=== PATIENT | female | born 1945 | race Caucasian/White ===

== ENCOUNTER 2024-12-23 00:38 | Inpatient (IN) | payer OTHER, SELFPAY ==
[2024-12-23] VITALS (9 sets, daily range): BP systolic 113–189; BP diastolic 43–87; PULSE 51–74; RESP 15–20; TEMP 36–36.9; O2SAT 94–99; BMI 32.0; BMI 31.9
--- NOTE | ~2024-12-23 | XR_ITS ---
CLINICAL HISTORY: chest pain 1 view chest x-ray Comparison: None provided Findings: The lungs are clear. Heart size is normal. No acute fracture. IMPRESSION: 1. No acute findings. This document has been electronically signed by: Kuldeep Stephens MD on 12/23/2024 02:15:35
--- NOTE | ~2024-12-23 | CT_ITS ---
CLINICAL HISTORY: Left lower quadrant tenderness?diverticulits CT abdomen and pelvis without contrast Comparison: None provided Findings: The lung bases are clear. Mildly distended gallbladder. Mild peripancreatic haziness may be motion artifact versus edema. Liver, gallbladder, and adrenal glands are within. No hydronephrosis or urolithiasis. Colonic diverticulosis without acute inflammation. No bowel obstruction, pneumatosis or pneumoperitoneum. Normal appendix. Aortic atherosclerosis. No aneurysm. Mild diffuse urinary bladder wall thickening. Small rectocele. Degenerative changes of the spine. IMPRESSION: Colonic diverticulosis without acute inflammation. Mild peripancreatic haziness may be motion artifact versus pancreatitis. Correlate with lipase. This document has been electronically signed by: Luis Manuel Sigala MD on 12/23/2024 03:49:31
--- NOTE | ~2024-12-23 | MR_ITS ---
CLINICAL HISTORY: pancreatitis MRI of the abdomen without IV contrast. MRCP sequences were performed. COMPARISON: CT abdomen and pelvis dated 12/23/24 at 02:29 EDT FINDINGS: Visualized lung bases are clear. No focal hepatic lesion. Gallbladder is nearly completely filled with cholelithiasis. Cholelithiasis present within the gallbladder neck. No pericholecystic inflammatory changes. Common bile duct in the pancreatic head measures 7 mm, within normal limits. No choledocholithiasis identified. Normal spleen. Normal adrenal glands. Symmetric renal size. No hydronephrosis. There is mild edema adjacent to the pancreatic head. Pancreatic duct is normal in caliber measuring up to 2 mm. No pancreatic head mass identified. Visualized portions of the bowel in the upper abdomen are unremarkable. No retroperitoneal mesenteric lymphadenopathy. IMPRESSION: 1. Mild edema along the pancreatic head suggestive of mild pancreatitis. No choledocholithiasis, pancreatic head mass or organizing fluid collection. 2. Gallbladder is nearly completely filled with cholelithiasis. No stigmata of cholecystitis. No choledocholithiasis identified. This document has been electronically signed by: Eyal Parks MD on 12/23/2024 12:53:10
--- NOTE | 2024-12-23 00:40 | ECG_ITS ---
Test Reason : abd pain Blood Pressure : */* mmHG Vent. Rate : 53 BPM Atrial Rate : 53 BPM P-R Int : 150 ms QRS Dur : 132 ms QT Int : 480 ms P-R-T Axes : 58 -24 36 degrees QTcB Int : 450 ms Sinus bradycardia Right bundle branch block Abnormal ECG When compared with ECG of 12-Apr-2018 19:07, Right bundle branch block has replaced Incomplete right bundle branch block Referred By: Generic ED Physician Electronically Signed By: Merritt Sigala
[2024-12-23 01:15] LABS: MANUAL DIFF FLAG NO
[2024-12-23 01:22] LABS: Basophils Percent Auto 0.1 % (0-2); Hematocrit 40.5 % (37.0-47.0); Hemoglobin 12.5 g/dl (12.0-16.0); Imm Gran Pct Auto 0.7 % (0.0-0.4); Lymphocytes Percent Auto 15.2 % (20-40); Mean Corpuscular HGB Conc 30.9 g/dl (31.0-35.0); Mean Corpuscular Hemoglobin 25.8 pg (27.0-33.0); Mean Corpuscular Volume 83.5 fL (80.0-98.0); Mean Platelet Volume 10.7 fL (9.4-12.3); Monocytes Absolute Auto 1.3 X10*3/uL (0.1-1.2); Neutrophils Absolute Auto 9.9 x10*3/uL (2.0-8.3); Platelet Count 292 X10*3/uL (160-400); Red Blood Count 4.85 X10*6/uL (4.20-5.50); Red Cell Distribution Width 17.4 % (11.0-16.0); White Blood Count 13.3 X10*3/uL (4.8-10.8)
[2024-12-23 01:38] LABS: Albumin Level 3.1 g/dL (3.5-5.0); Anion Gap 11 (12-20); Bilirubin Total 0.6 mg/dL (0.0-1.0); Calcium 8.6 mg/dL (8.4-10.2); Carbon Dioxide 31 mmol/L (22-29); Chloride 104 mmol/L (96-108); Creatinine Clr Calc Pharmacy 39.7; Estimated Glomerular Filt Rate 42; Glucose Random 172 mg/dL (60-115); Sodium 141 mmol/L (135-145); Total Protein 6.6 g/dL (6.5-8.0)
--- NOTE | 2024-12-23 01:39 | ED_ITS ---
HPI - Abdominal Pain General Chief Complaint: Abdominal Pain Stated Complaint: CHEST PAIN Time Seen by Provider: 12/23/24 01:09 Source: patient, EMS and RN notes reviewed Mode of arrival: EMS Limitations: altered mental status History of Present Illness ED Provider: HPI narrative: Patient's history of dementia , COPD, heart failure, asthma, diabetes comes from intermediate for diffuse abdominal pain for the limited history started 2 hours prior to arrival no vomiting no fever patient has says she feels sick to her stomach Related Data Allergies Allergy/AdvReac Type Severity Reaction Status Date / Time levofloxacin (From LEVAQUIN) Allergy Unknown UNKNOWN Verified 12/23/24 00:54 montelukast (From SINGULAIR) Allergy Unknown UNKNOWN Verified 12/23/24 00:54 penicillin G Allergy Unknown Unknown Verified 12/23/24 00:54 Penicillins (PCN) Allergy Unknown UNKNOWN Verified 12/23/24 00:54 valsartan (From DIOVAN) Allergy Unknown UNKNOWN Verified 12/23/24 00:54 Review of Systems Review of Systems Yes Unobtainable due to mental status PMFSH Social History Social History Patient Tobacco Use Status: Tobacco use Unknown Smoked in Last 30 Days: No Use of substances other than those prescribed or required for medical reasons: No Advance Directives: No Advance Directives Information Provided: No Do you have a plan to hurt others: No Plan Nutrition Risks: No Nutritional Risk Physical Exam ED Vital Signs: Vital Signs - 24 hr 12/23/24 00:53 Temperature 98.4 F Pulse Rate 52 Respiratory Rate 17 Blood Pressure 165/75 H Pulse Oximetry 94 Oxygen Delivery Method Room Air BMI result Body Mass Index 32.0 Appearance: Alert. Oriented X2. No acute distress. Eyes: No pallor or icterus ENT: Pharynx normal. Oral Mucosa moist Neck: Normal inspection. Neck supple. CVS: Normal heart rate and rhythm. Pulses normal. Respiratory: No respiratory distress. Equal air entry bilateral, no wheezing/rales/rhonchi Abdomen: Soft and deep tenderness left lower quadrant and mid abdomen area no rebound tenderness or guarding Bowel sounds are present, no mass palpable, no CVA tenderness Skin: Skin warm and dry. Normal skin color. Normal skin turgor. Extremities: No lower extremity edema. No calf tenderness Neuro: Dementia alert oriented x2 No motor deficit. Medical Decision Making Medical Decision Making [facility] Narrative: Patient has diffuse abdominal pain workup showed patient has a acute pancreatitis with lipase elevated more than 3000 CT scan showed inflammation around the pancreas etiology not clear has normal triglyceride level medication not causing the pancreatitis patient's nonalcoholic no gallstones seen Differential Diagnosis Differential Diagnoses: The differential diagnosis associated with the presentation includes Diverticulitis/pancreatitis/gastritis/gastroenteritis Admission/Observation Consideration of admission/observation: Escalation of care including admission/observation considered Consult Healthcare Provider Management of the patient was discussed with: Hospitalist Lab Data [facility] Lab Attestation statement: I reviewed the patient's lab results. 12/23/24 01:09 12/23/24 01:09 Labs: Lab Results 12/23/24 Range/Units 01:09 WBC 13.3 H (4.8-10.8) X10*3/uL RBC 4.85 (4.20-5.50) X10*6/uL Hgb 12.5 (12.0-16.0) g/dl Hct 40.5 (37.0-47.0) % MCV 83.5 (80.0-98.0) fL MCH 25.8 L (27.0-33.0) pg MCHC 30.9 L (31.0-35.0) g/dl RDW 17.4 H (11.0-16.0) % Plt Count 292 (160-400) X10*3/uL MPV 10.7 (9.4-12.3) fL Immature Gran % (Auto) 0.7 H (0.0-0.4) % Neut % (Auto) 74.0 H (45-73) % Lymph % (Auto) 15.2 L (20-40) % [place] % (Auto) 10.0 (2-11) % Eos % (Auto) 0.0 (0-4) % Baso % (Auto) 0.1 (0-2) % Lymph # (Auto) 2.0 (1.2-4.9) X10*3/uL [place] # (Auto) 1.3 H (0.1-1.2) X10*3/uL Eos # (Auto) 0.0 (0.0-0.4) X10*3/uL Baso # (Auto) 0.0 (0.0-0.2) X10*3/uL Abs Immat Gran (auto) 0.10 H (0.00-0.03) X10*3/uL Absolute Neuts (auto) 9.9 H (2.0-8.3) x10*3/uL Absolute Nucleated RBC 0.000 (0.0-0.012) X10*3/uL Nucleated RBC % (auto) 0.0 (0.0-0.2) /100WBC Sodium 141 (135-145) mmol/L Potassium 5.0 (3.3-5.1) mmol/L Chloride 104 (96-108) mmol/L Carbon Dioxide 31 H (22-29) mmol/L Anion Gap 11 L (12-20) BUN 36 H (9-16) mg/dL Creatinine 1.23 (0.5-1.4) mg/dL Estim Creat Clear Calc 39.7 Estimated GFR 42 Random Glucose 172 H (60-115) mg/dL Calcium 8.6 (8.4-10.2) mg/dL Magnesium 2.5 (1.6-2.6) mg/dL Total Bilirubin 0.6 (0.0-1.0) mg/dL AST 169 H (5-31) U/L ALT 90 H (0-31) U/L Alkaline Phosphatase 156 H (39-117) U/L Troponin I High Sens 3.7 (<3.5-17.0) ng/L B-Natriuretic Peptide 482 H (<100) pg/mL Total Protein 6.6 (6.5-8.0) g/dL Albumin 3.1 L (3.5-5.0) g/dL Triglycerides 153 H (<150) mg/dL Cholesterol 157 (<200) mg/dL LDL Cholesterol, Calc 86 (<100) mg/dL HDL Cholesterol 41 (>40) mg/dL Lipase > 3000 H (8-78) U/L Influenza Type A (PCR) NEGATIVE (Negative) Influenza Type B (PCR) NEGATIVE (Negative) RSV RNA Qual (PCR) NEGATIVE (Negative) SARS-CoV-2 RNA (RT-PCR) NEGATIVE (Negative) Radiology Impression Discussion of test interpretation with radiology: I have reviewed the radiologist's reading. Radiologist Impression: IMPRESSION: Colonic diverticulosis without acute inflammation. Mild peripancreatic haziness may be motion artifact versus pancreatitis. Correlate with lipase. This document has been electronically signed by: Luis Manuel Sigala MD on 12/23/2024 03:49:31 Medications Administered Generic Name Dose Route Start Last Admin Trade Name Freq PRN Reason Stop Dose Admin Hydromorphone HCl 0.5 mg 12/23/24 04:20 12/23/24 04:53 Hydromorphone Hcl 0.5 Mg/0.5 Ml Syringe IVPUSH 0.5 mg Q4H PRN Administration Pain, Severe (Pain Scale 7-10) Protocol Dextrose/Sodium Chloride 1,000 mls @ 75 mls/hr 12/23/24 04:30 12/23/24 04:53 D51/2ns IVCONT 75 mls/hr .[id number] FLASH Administration Discontinued Medications Generic Name Dose Route Start Last Admin Trade Name Freq PRN Reason Stop Dose Admin Enoxaparin Sodium 40 mg 12/23/24 04:30 12/23/24 04:53 Enoxaparin Sodium 40 Mg/0.4 Ml Syringe SUBCUT 40 mg DAILY FLASH Administration Discharge Plan Discharge Clinical Impression: Acute pancreatitis Qualifiers: Pancreatitis type: unspecified pancreatitis type Acute pancreatitis complication: unspecified Qualified Code(s): K85.90 - Acute pancreatitis without necrosis or infection, unspecified Patient Disposition: Admitted As Inpatient
[2024-12-23 01:41] LABS: Alkaline Phosphatase 156 U/L (39-117); Lipase > 3000 U/L (8-78)
[2024-12-23 01:42] LABS: B Type Natriuretic Peptide 482 pg/mL (<100)
[2024-12-23 01:59] LABS: Influenza A PCR NEGATIVE (Negative); Influenza B PCR NEGATIVE (Negative); Resp Syncy Virus RNA Qual PCR NEGATIVE (Negative); SARS COV2 PCR INHOUSE NEGATIVE (Negative)
[2024-12-23 02:01] LABS: Alanine Aminotransferase 90 U/L (0-31); Aspartate Amino Transferase 169 U/L (5-31); Blood Urea Nitrogen 36 mg/dL (9-16); Magnesium 2.5 mg/dL (1.6-2.6); Troponin-I High Sensitivity 3.7 ng/L (<3.5-17.0)
--- NOTE | 2024-12-23 04:23 | P.HPHOSP_ITS ---
History of Present Illness Date of Service: 12/23/24 Chief Complaint: abd pain 79-year-old female with a past medical history of HTN, HLD,DM, CHF, AFib, COPD, dementia, half-way resident presented to the hospital with a chief complaint of abdominal pain. Reportedly patient has been having abdominal pain since yesterday surgeon nausea. Denies any diarrhea. Reports her pain is mostly in the epigastrium. Nonradiating. Denies any fevers and chills. Denies any chest pain or palpitations. Denies any alcohol use or illicit drug use. Spoke to the patient's daughter over the phone. Review of all other systems is negative except mentioned above ER course: Per ER team, patient noted to have diffuse abdominal tenderness but more so in the epigastrium; lipase elevated to greater than 3000; slight dilution liver enzymes; CT abdomen pelvis showed findings concerning for pancreatitis. Given pain medication. REPLACED BY [facility] Social History Advance Directives: No Advance Directives Information Provided: No Do you have a plan to hurt others: No Plan Meds Allergies Allergy/AdvReac Type Severity Reaction Status Date / Time levofloxacin (From LEVAQUIN) Allergy Unknown UNKNOWN Verified 12/23/24 00:54 montelukast (From SINGULAIR) Allergy Unknown UNKNOWN Verified 12/23/24 00:54 penicillin G Allergy Unknown Unknown Verified 12/23/24 00:54 Penicillins (PCN) Allergy Unknown UNKNOWN Verified 12/23/24 00:54 valsartan (From DIOVAN) Allergy Unknown UNKNOWN Verified 12/23/24 00:54 Physical Exam 2 Vital Signs and Narrative: Vital Signs: BMI result Body Mass Index 32.0 Gen: Appears be in no acute distress HEENT: NCAT, Moist mucosa. Pulmonary: Vesicular breath sounds, fair air entry CVS: Normal S1-S2 Abdomen: BS+, tender in the epigastrium Extremities: Warm well perfused Neuro: Alert and awake. Results Labs 12/23/24 01:09 12/23/24 01:09 Labs: Laboratory Results - last 24 hr 12/23/24 01:09 MCV 83.5 MCH 25.8 L MCHC 30.9 L RDW 17.4 H Plt Count 292 MPV 10.7 Immature Gran % (Auto) 0.7 H Neut % (Auto) 74.0 H Lymph % (Auto) 15.2 L [place] % (Auto) 10.0 Eos % (Auto) 0.0 Baso % (Auto) 0.1 Lymph # (Auto) 2.0 [place] # (Auto) 1.3 H Eos # (Auto) 0.0 Baso # (Auto) 0.0 Abs Immat Gran (auto) 0.10 H Absolute Neuts (auto) 9.9 H Absolute Nucleated RBC 0.000 Nucleated RBC % (auto) 0.0 Anion Gap 11 L Estim Creat Clear Calc 39.7 Estimated GFR 42 Random Glucose 172 H Calcium 8.6 Magnesium 2.5 Total Bilirubin 0.6 AST 169 H ALT 90 H Alkaline Phosphatase 156 H Troponin I High Sens 3.7 B-Natriuretic Peptide 482 H Total Protein 6.6 Albumin 3.1 L Lipase > 3000 H Influenza Type A (PCR) NEGATIVE Influenza Type B (PCR) NEGATIVE RSV RNA Qual (PCR) NEGATIVE SARS-CoV-2 RNA (RT-PCR) NEGATIVE Assessment and Plan (1) Acute pancreatitis: Qualifiers: Pancreatitis type: unspecified pancreatitis type Acute pancreatitis complication: unspecified Qualified Code(s): K85.90 - Acute pancreatitis without necrosis or infection, unspecified Status: Acute Plan 79-year-old female with a past medical history of HTN, HLD,DM, CHF, AFib, COPD, dementia, half-way resident presented to the hospital with a chief complaint of abdominal pain. Noted to have acute pancreatitis. Acute pancreatitis: Unclear etiology Noted to have mild transaminitis Will obtain MRCP Gastroenterology consult next pain control Gentle IV fluids Acute hepatitis panel Diabetes: Insulin sliding scale Hypertension: Continue metoprolol AFib: Continue Eliquis COPD: Stable Dementia: Delirium precautions. Mental status at baseline currently DVT prophylaxis: Patient on Eliquis Code status: DNR/DNI, confirmed with patient's daughter Quality Stroke Does the patient have a stroke diagnosis?: No VTE Prior VTE?: No VTE Risk Level:: Medical - moderate - high VTE Device Contraindication: N/A - Device Ordered VTE Drug Contraindication: N/A - Med Ordered
--- NOTE | 2024-12-23 04:30 | MHC.EDTECH ---
Assisted patient with purewick
[2024-12-23 04:35] LABS: Cholesterol 157 mg/dL (<200); HDL Cholesterol 41 mg/dL (>40); LDL Cholesterol Calculated 86 mg/dL (<100); Triglycerides 153 mg/dL (<150)
[2024-12-23] MEDS: HYDROmorphone HCl 0.5 MG/0.5 ML SYRINGE IVPUSH ×2 (04:53→20:31)
[2024-12-23] MEDS: Enoxaparin Sodium 40 MG/0.4 ML SYRINGE SUBCUT (04:53)
[2024-12-23] MEDS: Dextrose 5 % and 0.45 % NaCl 1,000 ML 75 ML IVCONT ×2 (04:53→18:11)
[2024-12-23 06:15] LABS: Appearance Urine Clear; Color Urine Yellow; Glucose Urine UA >=1000 mg/dL (Negative); Leukocyte Esterase Urine Small (1+) (Negative); Nitrite Urine Negative (Negative); PH 6.5 (5.0-9.0); Specific Gravity - Urine >= 1.030 (1.005-1.025); UMIC TRIGGER UACC YES; Urine Blood Negative (Negative); Urine Ketones Negative (Negative); Urine Protein Negative (Neg-Trace)
[2024-12-23 06:36] LABS: MANUAL DIFF FLAG NO
[2024-12-23 06:44] LABS: Bacteria Urine 1+ (None Seen); Hyaline Casts Urine 0-2 /LPF (0-2); RBC Urine 0-2 /HPF (0-2); UACC Culture Trigger YES; WBC Urine >50 /HPF (0-5)
[2024-12-23 06:44] LABS: Basophils Percent Auto 0.1 % (0-2); Hematocrit 38.6 % (37.0-47.0); Hemoglobin 11.8 g/dl (12.0-16.0); Imm Gran Abs Auto 0.09 X10*3/uL (0.00-0.03); Imm Gran Pct Auto 0.9 % (0.0-0.4); Lymphocytes Absolute Auto 1.4 X10*3/uL (1.2-4.9); Lymphocytes Percent Auto 13.7 % (20-40); Mean Corpuscular HGB Conc 30.6 g/dl (31.0-35.0); Mean Corpuscular Hemoglobin 25.7 pg (27.0-33.0); Mean Corpuscular Volume 84.1 fL (80.0-98.0); Mean Platelet Volume 11.5 fL (9.4-12.3); Monocytes Absolute Auto 0.9 X10*3/uL (0.1-1.2); Monocytes Percent Auto 8.3 % (2-11); Platelet Count 246 X10*3/uL (160-400); Red Blood Count 4.59 X10*6/uL (4.20-5.50); Red Cell Distribution Width 17.5 % (11.0-16.0); White Blood Count 10.4 X10*3/uL (4.8-10.8)
[2024-12-23 06:53] LABS: Alanine Aminotransferase 392 U/L (0-31); Albumin Level 2.6 g/dL (3.5-5.0); Alkaline Phosphatase 180 U/L (39-117); Anion Gap 15 (12-20); Aspartate Amino Transferase 903 U/L (5-31); Blood Urea Nitrogen 36 mg/dL (9-16); Calcium 8.3 mg/dL (8.4-10.2); Carbon Dioxide 25 mmol/L (22-29); Chloride 106 mmol/L (96-108); Creatinine Clr Calc Pharmacy 45.6; Estimated Glomerular Filt Rate 49; Glucose Random 327 mg/dL (60-115); Potassium 4.5 mmol/L (3.3-5.1); Sodium 141 mmol/L (135-145); Total Protein 5.6 g/dL (6.5-8.0)
[2024-12-23 07:56] LABS: Glucose, Whole Blood 310 mg/dL (60-115)
[2024-12-23] MEDS: Insulin Lispro 100 UNIT/ML 3 ML VIAL SUBCUT ×3 (07:57→20:32)
[2024-12-23] MEDS: Apixaban 5 MG TABLET PO (08:01)
--- NOTE | 2024-12-23 08:04 | PC.NURSE ---
Morning Metoprolol held d/t pt HR 50-55. MD aware. Vitals updated in worklist. Repositioned in bed for comfort, purewick dry and intact, call spear within reach, all needs met at this time.
[2024-12-23 08:18] LABS: Lipase 2922 U/L (8-78)
--- NOTE | 2024-12-23 08:18 | PHA.MEDREC ---
Addendum entered by Kristin Pal [facility] 12/23/24 09:11: reviewed Original Note: Pharmacy Consult ? Medication Reconciliation Pharmacy has completed the medication reconciliation. Used list from [facility]. Nurse at [facility] confirmed administration times for oxycodone.
--- NOTE | 2024-12-23 08:29 | PC.NURSE ---
Attempted to do MRI screening form with pt daughter d/t pt hx of dementia. No response @ [phone]- message left for daughter, MRI notified.
[2024-12-23 08:43] LABS: HBS Num1 0.03 mIU/mL (0-7.99); HBc Num1 0.06 S/CO (0.00-0.79); HBsAGNum1 0.47 S/CO (0.00-0.99); Hepatitis A Antibody IgM 0.27 Index (0-0.79); Hepatitis B Core Antibody Nonreactive (Nonreactive); Hepatitis B Surface Antigen Negative (Negative); ~HepC Num1 0.07 S/CO (0.00-0.79); ~Hepatitis A Antibody IgM Nonreactive (Nonreactive); ~Hepatitis B Surface Antibody NONREACTIVE (Nonreactive); ~Hepatitis C Antibody Nonreactive (Nonreactive)
--- NOTE | 2024-12-23 11:45 | CONS_ITS ---
DATE OF SERVICE: 12/23/2024 REFERRING PHYSICIAN: Ijeoma Moyer REASON FOR CONSULTATION: Pancreatitis and elevated liver function tests. HISTORY OF PRESENT ILLNESS: The patient is a pleasant 79-year-old Vincentian-speaking woman who is a poor historian, possibly due to dementia. She was brought to the emergency room because of abdominal pain and evaluated. Evaluation included laboratory studies showing a lipase level greater than 3000, which dropped to 2922 today. Liver function tests were slightly elevated and have become more elevated over 24 hours since admission. Evaluation with imaging showed mild peripancreatic haziness thought to be motion artifact versus edema on CT scanning. No biliary pathology was identified. MRI imaging is scheduled. The patient denies any abdominal pain at this time and provides no useful history. PAST MEDICAL HISTORY: 1. Hypertension. 2. Hyperlipidemia. 3. Diabetes mellitus. 4. CHF. 5. Atrial fibrillation. 6. COPD. 7. Dementia. CURRENT MEDICATIONS: Her current medication list is reviewed in the chart. ALLERGIES: MULTIPLE MEDICATION ALLERGIES ARE REVIEWED. FAMILY HISTORY: This is reviewed in the electronic medical record and is noncontributory. SOCIAL HISTORY: There is no current tobacco, alcohol, or substance abuse reported. [facility] REVIEW OF SYSTEMS: This is not obtainable. PHYSICAL EXAMINATION: GENERAL: Shows a pleasant elderly female who speaks Vincentian. History is obtained with the use of waist presser, but is limited. SKIN: Anicteric. HEENT: Shows no scleral icterus. NECK: Without lymphadenopathy or thyromegaly. LUNGS: Clear. HEART: Shows a regular rate and rhythm. S1, S2. No murmur. ABDOMEN: Soft without focal masses or tenderness. Bowel sounds are present. No organomegaly is noted. EXTREMITIES: Without edema. LABORATORY DATA AND IMAGING STUDIES: Reviewed. This appears consistent with gallstone pancreatitis given her presentation and liver function tests, allergies as well as lipase elevation. I agree with obtaining MRI imaging. If it does show a common duct stone, then she will need an eventual MRI. Once her pancreatitis has improved, I would recommend holding anticoagulation with Eliquis at this time for such a possibility. Thank you for asking me to see her. I will follow her in the hospital with you. MD ROSSY Rojas/LOUISA / [phone]
--- NOTE | 2024-12-23 12:52 | PM.EVENT ---
Event Note Date of Service: 12/23/24 Event Note: Seen and examined. Admitted for acute pancreatitis, labs, meds, imaging reviewed. Med rec completed, awaiting MRCP Time Spent With Patient Time: Total time managing care of this patient today ____ minutes.
[2024-12-23 13:08] LABS: Glucose, Whole Blood 184 mg/dL (60-115)
--- NOTE | 2024-12-23 15:23 | MHC.EDTECH ---
Not able to take patient blood pressure due to patient moving from crying
[2024-12-23 17:23] LABS: Glucose, Whole Blood 116 mg/dL (60-115)
[2024-12-23] MEDS: 0.9 % Sodium Chloride Flush 3 ML SYRINGE IVFLUSH ×2 (18:12→20:34)
[2024-12-23 20:00] LABS: Glucose, Whole Blood 161 mg/dL (60-115)
[2024-12-23] MEDS: Atorvastatin Calcium 20 MG TABLET PO (20:32)
[2024-12-23] MEDS: Montelukast Sodium 10 MG TABLET PO (20:32)
[2024-12-24] VITALS (8 sets, daily range): BP systolic 160–179; BP diastolic 79–88; PULSE 51–64; RESP 17–18; TEMP 36–36.8; O2SAT 95–98
[2024-12-24] MEDS: Omeprazole 20 MG CAPSULE.DR PO (06:00)
[2024-12-24 07:26] LABS: Glucose, Whole Blood 170 mg/dL (60-115)
[2024-12-24] MEDS: BUDESONIDE 0.25 MG/2 ML INHALE ×2 (08:26→18:55)
[2024-12-24] MEDS: Furosemide 20 MG TABLET PO (09:18)
[2024-12-24] MEDS: Loratadine 10 MG TABLET PO (09:18)
[2024-12-24] MEDS: 0.9 % Sodium Chloride Flush 3 ML SYRINGE IVFLUSH (09:21)
[2024-12-24] MEDS: Insulin Lispro 100 UNIT/ML 3 ML VIAL SUBCUT ×3 (09:21→22:12)
[2024-12-24] MEDS: Dextrose 5 % and 0.45 % NaCl 1,000 ML 75 ML IVCONT ×2 (09:22→23:44)
[2024-12-24] MEDS: Clotrimazole 1 % Cream 15 GM TUBE 1 APPL TOPICAL (09:30)
[2024-12-24] MEDS: polyethylene glycoL 3350 17 GM POWD.PACK PO (09:31)
[2024-12-24] MEDS: Metoprolol Succinate ER 50 MG TAB.ER.24H PO (09:39)
[2024-12-24 09:55] LABS: Hematocrit 43.2 % (37.0-47.0); Hemoglobin 13.2 g/dl (12.0-16.0); Mean Corpuscular HGB Conc 30.6 g/dl (31.0-35.0); Mean Corpuscular Hemoglobin 25.9 pg (27.0-33.0); Mean Corpuscular Volume 84.7 fL (80.0-98.0); Mean Platelet Volume 11.1 fL (9.4-12.3); Platelet Count 274 X10*3/uL (160-400); Red Cell Distribution Width 18.3 % (11.0-16.0); White Blood Count 8.3 X10*3/uL (4.8-10.8)
--- NOTE | 2024-12-24 10:07 | MHC.CM.PN ---
IMM 12/24/24, discussed with HCP / Dtr on phone, copy left in room. Pt. dx. of Dementia, HCP signs all forms. Pt. resides at [facility], DCP [facility] for [facility] return [facility]. CM to follow for DC needs.
[2024-12-24 10:15] LABS: Alanine Aminotransferase 763 U/L (0-31); Alkaline Phosphatase 270 U/L (39-117); Aspartate Amino Transferase 677 U/L (5-31); Bilirubin Direct 0.3 mg/dL (0.0-0.5); Bilirubin Total 0.7 mg/dL (0.0-1.0); Lipase 98 U/L (8-78); Total Protein 6.4 g/dL (6.5-8.0)
--- NOTE | 2024-12-24 11:00 | P.PNGI_ITS ---
Subjective Subjective Date of Service: 12/24/24 Interval History: no c/o pain appears comfortable Critical Care Time (minutes): 0 Physical Exam 2 Vital Signs: Vital Signs: Last Vital Signs Temp 97.6 F 12/24/24 07:13 Pulse 60 12/24/24 09:39 Resp 18 12/24/24 08:27 BP 165/88 H 12/24/24 07:13 Pulse Ox 96 12/24/24 07:13 O2 Del Method Room Air 12/24/24 07:13 BMI result Body Mass Index 31.9 GI: Other: abdomen is soft and nontender Objective Data Labs 12/24/24 09:41 12/23/24 05:58 Labs: mri reviewed, no cbd stones multiple gallstones. Microbiology Microbiology Results: Microbiology 12/23/24 Unknown Urine clean catch - Clean Catch Midstream Urine Culture - Preliminary Culture in progress. Procedures Date of Service Date of Service: 12/24/24 Progress Note: A&P Assessment and plan (1) Acute pancreatitis: Status: Acute Assessment and Plan: pancreatitis improving no cbd stones seen on mri lfts and lipase improving surgical consult for eventual cholecystectomy Time Spent With Patient Time: Total time managing care of this patient today ____ minutes. Quality Stroke Does the patient have a stroke diagnosis?: No VTE Prior VTE?: No VTE Risk Level:: Medical - moderate - high VTE Device Contraindication: N/A - Device Ordered VTE Drug Contraindication: N/A - Med Ordered
[2024-12-24 11:29] LABS: Glucose, Whole Blood 167 mg/dL (60-115)
--- NOTE | 2024-12-24 11:34 | P.CONGS_ITS ---
History of Present Illness Consult details Consult date: 12/24/24 Narrative: [age] year female with multiple medical problems including hypertension, dementia, diabetes, CHF, atrial fibrillation, who was brought to the ER from the shelter because of apparent abdominal pain. The patient does not really communicate well. The admitting notes he had that she apparently had complained of pain in the epigastric area She currently says she had this does not have significant pain. She otherwise does not offer any other details because of her dementia. No nausea or vomiting was reported by the nursing staff. Review of Systems 2 Review of Systems: Yes Unobtainable due to mental status Constitutional: Constitutional: Denies fever(s) PMFSH Past Medical History Medical History (Updated 12/24/24 @ 11:37 by Zeus Santana MD) Abdominal pain Social History Social History Household Members: Caregiver Housing: Assisted Living Facility Do you presently have visiting nurse or other home services: Yes (SNF per report.) Patient Tobacco Use Status: Never used Tobacco Smoked in Last 30 Days: No Patient Interested in Nicotine Replacement: No Patient Given Instructions on How to Stop Smoking: No Second Hand Smoke Exposure: No Use of substances other than those prescribed or required for medical reasons: No Currently Displaying Signs/Symptoms of Drug Intoxication Withdrawal: No Have you been hit, kicked, punched, or otherwise hurt by someone within the past year? If so, by whom?: No Do you feel safe in your current relationship?: Yes Is there a partner from a previous relationship who is making you feel unsafe now?: No Are you made to feel afraid or neglected: No Advance Directives: No Advance Directives Information Provided: No Advance Directives on File: No Do you have a plan to hurt others: No Plan Recently lost weight without trying: No Eating poorly because of decreased appetite: No Nutrition Risks: No Nutritional Risk Patient : No : No Poor oral hygiene: No service: No Meds Allergies Allergy/AdvReac Type Severity Reaction Status Date / Time levofloxacin (From LEVAQUIN) Allergy Unknown UNKNOWN Verified 12/23/24 00:54 montelukast (From SINGULAIR) Allergy Unknown UNKNOWN Verified 12/23/24 00:54 penicillin G Allergy Unknown Unknown Verified 12/23/24 00:54 Penicillins (PCN) Allergy Unknown UNKNOWN Verified 12/23/24 00:54 valsartan (From Keyade) Allergy Unknown UNKNOWN Verified 12/23/24 00:54 Active Medications: Current Medications Acetaminophen (Acetaminophen 325 Mg Tablet) 650 mg PO Q6H PRN PRN Reason: Pain, Mild 1-3,fever,headache Albuterol Sulfate (Albuterol Sulfate (0.083%) 2.5 Mg/3 Ml Vial.Neb) 2.5 mg INHALE RQ6H PRN PRN Reason: wheezing/SOB Apixaban (Apixaban 5 Mg Tablet) 5 mg PO BID FLASH On Hold: 12/23/24 11:26 Last Admin: 12/23/24 08:01 Dose: 5 mg Atorvastatin Calcium (Atorvastatin Calcium 20 Mg Tablet) 20 mg PO BEDTIME FLASH Last Admin: 12/23/24 20:32 Dose: 20 mg Bisacodyl (Bisacodyl 10 Mg Supp.Rect) 10 mg [place] DAILY PRN PRN Reason: Constipation Budesonide (Budesonide 0.25 Mg/2 Ml Ampul.Neb) 0.25 mg INHALE RBID [facility] Last Admin: 12/24/24 08:26 Dose: 0.25 mg Calcium Carbonate (Calcium Carbonate 750 Mg Tab.Chew) 750 mg PO Q4H PRN PRN Reason: Heartburn Clotrimazole (Clotrimazole 1 % Cream 15 Gm Tube) 1 appl TOPICAL DAILY FLASH; Protocol Last Admin: 12/24/24 09:30 Dose: 1 appl Dextrose (Dextrose 50 % 25 Gm/50 Ml Syringe) 25 gm IVPUSH Q15M PRN; Protocol PRN Reason: per Hypoglycemia Standing Ord. Furosemide (Furosemide 20 Mg Tablet) 20 mg PO DAILY FLASH; Protocol Last Admin: 12/24/24 09:18 Dose: 20 mg Glucose (Glucose Gel 15 Gm Gel..Gram.) 15 gm PO Q15M PRN; Protocol PRN Reason: per Hypoglycemia Standing Ord. Hydromorphone HCl (Hydromorphone Hcl 0.5 Mg/0.5 Ml Syringe) 0.5 mg IVPUSH Q4H PRN; Protocol PRN Reason: Pain, Severe (Pain Scale 7-10) Last Admin: 12/23/24 20:31 Dose: 0.5 mg Dextrose/Sodium Chloride (D51/2ns) 1,000 mls @ 75 mls/hr IVCONT .[id number] FLASH Last Admin: 12/24/24 09:22 Dose: 75 mls/hr Insulin Human Lispro (Insulin Lispro 100 Unit/Ml 3 Ml Vial) 0 unit SUBCUT QIDACHS [facility]; Protocol Last Admin: 12/24/24 09:21 Dose: 2 unit Loratadine (Loratadine 10 Mg Tablet) 10 mg PO DAILY [facility] Last Admin: 12/24/24 09:18 Dose: 10 mg Magnesium Hydroxide (Milk Of Magnesia 30 Ml Oral.Susp) 30 ml PO DAILY PRN PRN Reason: Constipation Magnesium Hydroxide (Milk Of Magnesia 30 Ml Oral.Susp) 30 ml PO DAILY PRN PRN Reason: Constipation Melatonin (Melatonin 3 Mg Tablet) 6 mg PO BEDTIME PRN PRN Reason: Insomnia Metoprolol Succinate (Metoprolol Succinate Er 50 Mg Tab.Er.24h) 50 mg PO DAILY [facility]; Protocol Last Admin: 12/24/24 09:39 Dose: 50 mg Montelukast Sodium (Montelukast Sodium 10 Mg Tablet) 10 mg PO BEDTIME [facility] Last Admin: 12/23/24 20:32 Dose: 10 mg Omeprazole (Omeprazole 20 Mg Capsule.Dr) 20 mg PO DAILY@0630 [facility] Last Admin: 12/24/24 06:00 Dose: 20 mg Polyethylene Glycol (Polyethylene Glycol 3350 17 Gm Powd.Pack) 17 gm PO DAILY [facility] Last Admin: 12/24/24 09:31 Dose: 17 gm Sodium Biphosphate/Sodium Phosphate (Sodium Phosphate,[place]-Dibasic 133 Ml Enema) 118 ml [place] DAILY PRN PRN Reason: Constipation Sodium Chloride (0.9 % Sodium Chloride Flush 3 Ml Syringe) 3 ml IVFLUSH QSHIFT [facility] Last Admin: 12/24/24 09:21 Dose: 3 ml Home Medications ?Medication ?Instructions ?Recorded ?Confirmed ?Last Taken ?Type acetaminophen 325 mg tablet 650 mg PO Q4H PRN Fever Or Pain 12/23/24 12/23/24 12/22/24 History acetaminophen 650 mg rectal 650 mg NM Q4H PRN pain or fever 12/23/24 12/23/24 Unknown History suppository albuterol sulfate 2.5 mg/3 mL 2.5 mg inhalation Q6H NM N 12/23/24 12/23/24 Unknown History (0.083 %) solution for nebulization wheezing/SOB apixaban 5 mg tablet (Eliquis) 5 mg PO BID 12/23/2412/22/24 History atorvastatin 20 mg tablet 20 mg PO BEDTIME 12/23/2412/22/24 History bisacodyl 10 mg rectal suppository 10 mg NM DAILY PRN Constipation 12/23/24 12/23/24 Unknown History budesonide 0.25 mg/2 mL suspension 0.25 mg inhalation BID 12/23/24 12/23/24 12/22/24 History for nebulization clotrimazole 1 % topical cream 1 appl topical DAILY 12/23/24 12/22/24 History empagliflozin 10 mg tablet 10 mg PO DAILY 12/23/2412/22/24 History (Jardiance) furosemide 20 mg tablet 20 mg PO DAILY 12/23/2412/0412/22/24 History glipizide 5 mg tablet 5 mg PO BIDAC 12/23/2412/2312/22/24 History loratadine 10 mg tablet 10 mg PO DAILY 12/23/2412/0412/22/24 History magnesium hydroxide 400 mg/5 mL 30 ml PO DAILY PRN Con stipation 12/23/24 12/23/24 Unknown History oral suspension (Milk of Magnesia) melatonin 3 mg tablet 6 mg PO BEDTIME 12/23/2412/22/24 History metoprolol succinate 100 mg 100 mg PO DAILY 12/23/24 0 12/23/24 12/22/24 History tablet,extended release 24 hr montelukast 10 mg tablet 10 mg PO BEDTIME 12/23/2412/22/24 History omeprazole 20 mg capsule,delayed 20 mg PO DAILY 12/23/24 12/22/24 History release oxycodone 10 mg tablet,crush 10 mg PO BID@0900,2100 12/23/24 12/22/24 History resistant,extended release 12 hr oxycodone 5 mg tablet 5 mg PO DAILY@1200 12/23/24 12/23/24 12/22/24 History polyethylene glycol 3350 17 gram 17 g PO DAILY 5 12/23/24 12/22/24 History oral powder packet (Miralax) sodium phosphates 19 gram-7 118 ml NM DAILY PRN Williamsi holdenon 12/23/24 12/23/24 Unknown History gram/118 mL enema (Fleet Enema) Physical Exam 2 Vital Signs: Vital Signs: Last Vital Signs Temp 97.3 F 12/24/24 11:19 Pulse 61 12/24/24 11:19 Resp 18 12/24/24 11:19 BP 165/88 H 12/24/24 11:19 Pulse Ox 95 12/24/24 11:19 O2 Del Method Room Air 12/24/24 11:19 BMI result Body Mass Index 31.9 Const: Other: Appears to be crying but denies abdominal pain General: no acute distress Resp: Effort & Inspection: normal respiratory effort Cardio: Rate: regular rate GI: Palpation (GI): Soft to palpation, not firm and no guarding Results Labs 12/24/24 09:41 12/23/24 05:58 Labs: Abnormal lab results 12/23/24 12/23/24 12/23/24 Range/Units 13:04 17:20 19:35 MCH (27.0-33.0) pg MCHC (31.0-35.0) g/dl RDW (11.0-16.0) % POC Glucose 184 H 116 H 161 H (60-115) mg/dL AST (5-31) U/L ALT (0-31) U/L Alkaline Phosphatase (39-117) U/L Total Protein (6.5-8.0) g/dL Albumin (3.5-5.0) g/dL Lipase (8-78) U/L 12/24/24 12/24/24 12/24/24 Range/Units 07:22 09:41 11:26 MCH 25.9 L (27.0-33.0) pg MCHC 30.6 L (31.0-35.0) g/dl RDW 18.3 H (11.0-16.0) % POC Glucose 170 H 167 H (60-115) mg/dL AST 677 H (5-31) U/L ALT 763 H (0-31) U/L Alkaline Phosphatase 270 H (39-117) U/L Total Protein 6.4 L (6.5-8.0) g/dL Albumin 3.0 L (3.5-5.0) g/dL Lipase 98 H (8-78) U/L Short CBC 12/24/24 Range/Units 09:41 WBC 8.3 (4.8-10.8) X10*3/uL Hgb 13.2 (12.0-16.0) g/dl Hct 43.2 (37.0-47.0) % Plt Count 274 (160-400) X10*3/uL Liver Function 12/24/24 Range/Units 09:41 Total Bilirubin 0.7 (0.0-1.0) mg/dL Direct Bilirubin 0.3 (0.0-0.5) mg/dL AST 677 H (5-31) U/L ALT 763 H (0-31) U/L Alkaline Phosphatase 270 H (39-117) U/L Albumin 3.0 L (3.5-5.0) g/dL Urine 12/23/24 Range/Units 06:08 Urine Color Yellow Urine Appearance Clear Urine pH 6.5 (5.0-9.0) Ur Specific [place] >= 1.030 H (1.005-1.025) Urine Protein Negative (Neg-Trace) mg/dL Urine Glucose (UA) >=1000 H (Negative) mg/dL All other labs normal. Assessment and Plan (1) Abdominal pain: Status: Acute She was brought to the ER from the shelter because of report of abdominal pain. Her lipase was actually not significantly elevated at 98. There may be some mild haziness of the pancreas on MRCP. She does have gallstones Her abdominal exam is otherwise benign. I would keep her on clear liquids for now and we will continue to do serial exams. She does have gallstones but no signs of cholecystitis. She appears to present with significant perioperative risk for anesthesia so I will discuss goals of care with the family. She has had there was hemodynamically stable. I would recommend continuing with nonoperative treatment for now Procedures Date of Service Date of Service: 12/25/24
--- NOTE | 2024-12-24 14:57 | P.EN_ITS ---
Documented by User: Ellen Mcelroy APRN 12/24/24 14:58 Event Note Date of Service: 12/24/24 Event Note: Consult placed for dementia with behavioral issues. PT seen with [facility] children's librarian. Consult cancelled by Dr. Cartagena when completed. Time Spent With Patient Time: Total time managing care of this patient today ____ minutes. Documented by User: Rubio Mcdaniels MD 12/24/24 20:56 Event Note Date of Service: 12/24/24
[2024-12-24 16:05] LABS: Glucose, Whole Blood 142 mg/dL (60-115)
[2024-12-24] MEDS: Montelukast Sodium 10 MG TABLET PO (21:26)
[2024-12-24] MEDS: Atorvastatin Calcium 20 MG TABLET PO (21:26)
[2024-12-24 22:14] LABS: Glucose, Whole Blood 206 mg/dL (60-115)
[2024-12-25] VITALS (10 sets, daily range): BP systolic 120–182; BP diastolic 56–82; PULSE 51–79; RESP 16–20; TEMP 36.6–37.2; O2SAT 95–99
[2024-12-25] MEDS: Omeprazole 20 MG CAPSULE.DR PO (06:32)
[2024-12-25 07:44] LABS: Glucose, Whole Blood 169 mg/dL (60-115)
--- NOTE | 2024-12-25 07:54 | P.PNGS_ITS ---
Subjective Subjective Date of Service: 12/25/24 <Annamaria Collins PA-C - Last Filed: 12/25/24 07:56> 12/25/24 <Zeus Santana MD - Last Filed: 12/25/24 08:20> Interval history: Denies abd pain. Tolerating clear liquids. <Annamaria Collins PA-C - Last Filed: 12/25/24 07:56> Physical Exam 2 Vital Signs: Vital Signs: Last Vital Signs Temp 98.5 F 12/25/24 07:49 Pulse 55 12/25/24 07:49 Resp 16 12/25/24 07:49 BP 182/80 H 12/25/24 07:49 Pulse Ox 96 12/25/24 07:49 O2 Del Method Room Air 12/25/24 07:49 BMI result Body Mass Index 31.9 <Annamaria Collins PA-C - Last Filed: 12/25/24 07:56> Const: General: comfortable, no acute distress and alert <Annamaria Collins PA-C - Last Filed: 12/25/24 07:56> GI: Other: mild epigastric tenderness <Annamaria Collins PA-C - Last Filed: 12/25/24 07:56> Palpation (GI): Soft to palpation and no guarding <Annamaria Collins PA-C - Last Filed: 12/25/24 07:56> Skin: General skin exam: no rashes or lesions noted and no jaundice < Annamaria Collins PA-C - Last Filed: 12/25/24 07:56> Objective Data Active Medications Acetaminophen (Acetaminophen 325 Mg Tablet) 650 mg PO Q6H PRN PRN Reason: Pain, Mild 1-3,fever,headache Albuterol Sulfate (Albuterol Sulfate (0.083%) 2.5 Mg/3 Ml Vial.Neb) 2.5 mg INHALE RQ6H PRN PRN Reason: wheezing/SOB Apixaban (Apixaban 5 Mg Tablet) 5 mg PO BID FLASH On Hold: 12/23/24 11:26 Last Admin: 12/23/24 08:01 Dose: 5 mg Documented By: KEY Atorvastatin Calcium (Atorvastatin Calcium 20 Mg Tablet) 20 mg PO BEDTIME FLASH Last Admin: 12/24/24 21:26 Dose: 20 mg Documented By: HIRO Bisacodyl (Bisacodyl 10 Mg Supp.Rect) 10 mg [place] DAILY PRN PRN Reason: Constipation Budesonide (Budesonide 0.25 Mg/2 Ml Ampul.Neb) 0.25 mg INHALE RBID [facility] Last Admin: 12/24/24 18:55 Dose: 0.25 mg Documented By: ALESHIA Calcium Carbonate (Calcium Carbonate 750 Mg Tab.Chew) 750 mg PO Q4H PRN PRN Reason: Heartburn Clotrimazole (Clotrimazole 1 % Cream 15 Gm Tube) 1 appl TOPICAL DAILY [facility]; Protocol Last Admin: 12/24/24 09:30 Dose: 1 appl Documented By: CHARAN Dextrose (Dextrose 50 % 25 Gm/50 Ml Syringe) 25 gm IVPUSH Q15M PRN; Protocol PRN Reason: per Hypoglycemia Standing Ord. Furosemide (Furosemide 20 Mg Tablet) 20 mg PO DAILY [facility]; Protocol Last Admin: 12/24/24 09:18 Dose: 20 mg Documented By: CHARAN Glucose (Glucose Gel 15 Gm Gel..Gram.) 15 gm PO Q15M PRN; Protocol PRN Reason: per Hypoglycemia Standing Ord. Hydromorphone HCl (Hydromorphone Hcl 0.5 Mg/0.5 Ml Syringe) 0.5 mg IVPUSH Q4H PRN; Protocol PRN Reason: Pain, Severe (Pain Scale 7-10) Last Admin: 12/23/24 20:31 Dose: 0.5 mg Documented By: SUPRIYA Insulin Human Lispro (Insulin Lispro 100 Unit/Ml 3 Ml Vial) 0 unit SUBCUT QIDACHS [facility]; Protocol Last Admin: 12/24/24 22:12 Dose: 4 unit Documented By: HIRO Loratadine (Loratadine 10 Mg Tablet) 10 mg PO DAILY [facility] Last Admin: 12/24/24 09:18 Dose: 10 mg Documented By: CHARAN Magnesium Hydroxide (Milk Of Magnesia 30 Ml Oral.Susp) 30 ml PO DAILY PRN PRN Reason: Constipation Magnesium Hydroxide (Milk Of Magnesia 30 Ml Oral.Susp) 30 ml PO DAILY PRN PRN Reason: Constipation Melatonin (Melatonin 3 Mg Tablet) 6 mg PO BEDTIME PRN PRN Reason: Insomnia Metoprolol Succinate (Metoprolol Succinate Er 50 Mg Tab.Er.24h) 50 mg PO DAILY [facility]; Protocol Last Admin: 12/24/24 09:39 Dose: 50 mg Documented By: CHARAN Montelukast Sodium (Montelukast Sodium 10 Mg Tablet) 10 mg PO BEDTIME [facility] Last Admin: 12/24/24 21:26 Dose: 10 mg Documented By: HIRO Omeprazole (Omeprazole 20 Mg Capsule.Dr) 20 mg PO DAILY@0630 [facility] Last Admin: 12/25/24 06:32 Dose: 20 mg Documented By: ELIDA-CONNEllie Polyethylene Glycol (Polyethylene Glycol 3350 17 Gm Powd.Pack) 17 gm PO DAILY [facility] Last Admin: 12/24/24 09:31 Dose: 17 gm Documented By: CHARAN Sodium Biphosphate/Sodium Phosphate (Sodium Phosphate,[place]-Dibasic 133 Ml Enema) 118 ml [place] DAILY PRN PRN Reason: Constipation Sodium Chloride (0.9 % Sodium Chloride Flush 3 Ml Syringe) 3 ml IVFLUSH QSHIFT [facility] Last Admin: 12/24/24 23:47 Dose: Not Given Documented By: HIRO Non-Admin Reason: IV Running <Annamaria Collins PA-C - Last Filed: 12/25/24 07:56> Labs CBC & Chem 7: 12/24/24 09:41 12/23/24 05:58 <Annamaria Collins PA-C - Last Filed: 12/25/24 07:56> Labs: Laboratory Results - last 24 hr 12/24/24 12/24/24 12/24/24 09:41 11:26 16:01 MCV 84.7 MCH 25.9 L MCHC 30.6 L RDW 18.3 H Plt Count 274 MPV 11.1 Absolute Nucleated RBC 0.000 Nucleated RBC % (auto) 0.0 POC Glucose 167 H 142 H Total Bilirubin 0.7 Direct Bilirubin 0.3 AST 677 H ALT 763 H Alkaline Phosphatase 270 H Total Protein 6.4 L Albumin 3.0 L Lipase 98 H 12/24/24 12/25/24 22:10 07:30 MCV MCH MCHC RDW Plt Count MPV Absolute Nucleated RBC Nucleated RBC % (auto) POC Glucose 206 H 169 H Total Bilirubin Direct Bilirubin AST ALT Alkaline Phosphatase Total Protein Albumin Lipase <Annamaria Collins PA-C - Last Filed: 12/25/24 07:56> Microbiology Microbiology Results: Microbiology 12/23/24 Unknown Urine Culture - Preliminary Urine clean catch - Clean Catch Midstream Culture in progress. <Annamaria Collins PA-C - Last Filed: 12/25/24 07:56> Procedures Date of Service Date of Service: 12/25/24 <Annamaria Collins PA-C - Last Filed: 12/25/24 07:56> 12/25/24 <Zeus Santana MD - Last Filed: 12/25/24 08:20> Progress Note: A&P Assessment and plan (1) Acute pancreatitis: Status: Acute <Annamaria Collins PA-C - Last Filed: 12/25/24 07:56> Assessment and Plan: Denies abdominal pain Does have baseline dementia Seems comfortable Abdomen is soft and benign Okay to trial advancing diet Would hold off on any surgical intervention in view of comorbidities Seen and examined independently <Zeus Santana MD - Last Filed: 12/25/24 08:20> Assessment and Plan: 79 year old female admitted for likely gallstone pancreatitis. Clinically improving. Abd with mild epigastric tenderness. Can begin to advance diet as tolerated. Due to age and comorbidities would recommend holding off on cholecystectomy. No clinical evidence of acute cholecystitis. Goals of care to be discussed with family. <Annamaria Collins PA-C - Last Filed: 12/25/24 07:56> Time Spent With Patient Time: Total time managing care of this patient today ____ minutes. <Annamaria Collins PA-C - Last Filed: 12/25/24 07:56> Quality Stroke Does the patient have a stroke diagnosis?: No <KULWANT Mcdaniel Last Filed: 12/25/24 07:56> VTE Prior VTE?: No <KULWANT Mcdaniel Last Filed: 12/25/24 07:56> VTE Risk Level:: Medical - moderate - high <KULWANT Mcdaniel Last Filed: 12/25/24 07:56> VTE Device Contraindication: N/A - Device Ordered <Annamaria Collins PA-C - Last Filed: 12/25/24 07:56> VTE Drug Contraindication: N/A - Med Ordered <Annamaria Collins PA-C - Last Filed: 12/25/24 07:56>
[2024-12-25] MEDS: polyethylene glycoL 3350 17 GM POWD.PACK PO (07:57)
[2024-12-25] MEDS: Furosemide 20 MG TABLET PO (07:57)
[2024-12-25] MEDS: Metoprolol Succinate ER 50 MG TAB.ER.24H PO (07:57)
[2024-12-25] MEDS: Loratadine 10 MG TABLET PO (07:57)
[2024-12-25] MEDS: Insulin Lispro 100 UNIT/ML 3 ML VIAL SUBCUT ×4 (07:58→21:12)
[2024-12-25] MEDS: 0.9 % Sodium Chloride Flush 3 ML SYRINGE IVFLUSH ×2 (08:00→17:07)
[2024-12-25] MEDS: Clotrimazole 1 % Cream 15 GM TUBE 1 APPL TOPICAL (08:15)
[2024-12-25] MEDS: BUDESONIDE 0.25 MG/2 ML INHALE ×2 (08:31→20:18)
--- NOTE | 2024-12-25 11:13 | P.PNIM_ITS ---
Subjective Subjective Date of Service: 12/25/24 Interval History: Denies abd pain No N/V Constitutional Constitutional: Reports fever(s) Physical Exam 2 Vital Signs: Vital Signs: Last Vital Signs Temp 98.5 F 12/25/24 07:49 Pulse 65 12/25/24 09:25 Resp 16 12/25/24 08:33 BP 160/80 H 12/25/24 09:25 Pulse Ox 96 12/25/24 07:49 O2 Del Method Room Air 12/25/24 07:49 BMI result Body Mass Index 31.9 General: no acute distress Resp: CTA bilateral CVS: S1,S2,RRR GI: +BS, NT, no distention Skin: No rash Neuro: motor grossly intact Psych: appropriate affect Objective Data Active Medications Acetaminophen (Acetaminophen 325 Mg Tablet) 650 mg PO Q6H PRN PRN Reason: Pain, Mild 1-3,fever,headache Albuterol Sulfate (Albuterol Sulfate (0.083%) 2.5 Mg/3 Ml Vial.Neb) 2.5 mg INHALE RQ6H PRN PRN Reason: wheezing/SOB Apixaban (Apixaban 5 Mg Tablet) 5 mg PO BID FLASH On Hold: 12/23/24 11:26 Last Admin: 12/23/24 08:01 Dose: 5 mg Documented By: KEY Atorvastatin Calcium (Atorvastatin Calcium 20 Mg Tablet) 20 mg PO BEDTIME [facility] Last Admin: 12/24/24 21:26 Dose: 20 mg Documented By: HIRO Bisacodyl (Bisacodyl 10 Mg Supp.Rect) 10 mg [place] DAILY PRN PRN Reason: Constipation Budesonide (Budesonide 0.25 Mg/2 Ml Ampul.Neb) 0.25 mg INHALE RBID [facility] Last Admin: 12/25/24 08:31 Dose: 0.25 mg Documented By: IAIN Calcium Carbonate (Calcium Carbonate 750 Mg Tab.Chew) 750 mg PO Q4H PRN PRN Reason: Heartburn Clotrimazole (Clotrimazole 1 % Cream 15 Gm Tube) 1 appl TOPICAL DAILY [facility]; Protocol Last Admin: 12/25/24 08:15 Dose: 1 appl Documented By: ANI Dextrose (Dextrose 50 % 25 Gm/50 Ml Syringe) 25 gm IVPUSH Q15M PRN; Protocol PRN Reason: per Hypoglycemia Standing Ord. Furosemide (Furosemide 20 Mg Tablet) 20 mg PO DAILY [facility]; Protocol Last Admin: 12/25/24 07:57 Dose: 20 mg Documented By: ANI Glucose (Glucose Gel 15 Gm Gel..Gram.) 15 gm PO Q15M PRN; Protocol PRN Reason: per Hypoglycemia Standing Ord. Hydromorphone HCl (Hydromorphone Hcl 0.5 Mg/0.5 Ml Syringe) 0.5 mg IVPUSH Q4H PRN; Protocol PRN Reason: Pain, Severe (Pain Scale 7-10) Last Admin: 12/23/24 20:31 Dose: 0.5 mg Documented By: SUPRIYA Insulin Human Lispro (Insulin Lispro 100 Unit/Ml 3 Ml Vial) 0 unit SUBCUT QIDACHS [facility]; Protocol Last Admin: 12/25/24 07:58 Dose: 1 unit Documented By: ANI Loratadine (Loratadine 10 Mg Tablet) 10 mg PO DAILY [facility] Last Admin: 12/25/24 07:57 Dose: 10 mg Documented By: ANI Magnesium Hydroxide (Milk Of Magnesia 30 Ml Oral.Susp) 30 ml PO DAILY PRN PRN Reason: Constipation Magnesium Hydroxide (Milk Of Magnesia 30 Ml Oral.Susp) 30 ml PO DAILY PRN PRN Reason: Constipation Melatonin (Melatonin 3 Mg Tablet) 6 mg PO BEDTIME PRN PRN Reason: Insomnia Metoprolol Succinate (Metoprolol Succinate Er 50 Mg Tab.Er.24h) 50 mg PO DAILY [facility]; Protocol Last Admin: 12/25/24 07:57 Dose: 50 mg Documented By: ANI Montelukast Sodium (Montelukast Sodium 10 Mg Tablet) 10 mg PO BEDTIME [facility] Last Admin: 12/24/24 21:26 Dose: 10 mg Documented By: HIRO Omeprazole (Omeprazole 20 Mg Capsule.Dr) 20 mg PO DAILY@0630 [facility] Last Admin: 12/25/24 06:32 Dose: 20 mg Documented By: ELIDA-JUAN LUIS Polyethylene Glycol (Polyethylene Glycol 3350 17 Gm Powd.Pack) 17 gm PO DAILY [facility] Last Admin: 12/25/24 07:57 Dose: 17 gm Documented By: ANI Sodium Biphosphate/Sodium Phosphate (Sodium Phosphate,[place]-Dibasic 133 Ml Enema) 118 ml [place] DAILY PRN PRN Reason: Constipation Sodium Chloride (0.9 % Sodium Chloride Flush 3 Ml Syringe) 3 ml IVFLUSH QSHIFT [facility] Last Admin: 12/25/24 08:00 Dose: 3 ml Documented By: ANI Labs 12/24/24 09:41 12/23/24 05:58 Labs: Laboratory Results - last 24 hr 12/24/24 12/24/24 12/24/24 11:26 16:01 22:10 POC Glucose 167 H 142 H 206 H 12/25/24 07:30 POC Glucose 169 H Microbiology Microbiology Results: Microbiology 12/23/24 Unknown Urine Culture - Final Urine clean catch - Clean Catch Midstream Assessment and Plan (1) Acute pancreatitis: Status: Acute (2) Abdominal pain: Status: Acute Plan 79-year-old female with a past medical history of HTN, HLD,DM, CHF, AFib, COPD, dementia, skilled nursing resident presented to the hospital with a chief complaint of abdominal pain. Noted to have acute pancreatitis. Acute pancreatitis: likely gallstone related MRCP confirms pancreatitis but no CBC stone presently no pain' Advancing diet to full liquid No plan for CCy if able to manage conservatively Diabetes: Insulin sliding scale Hypertension: Continue metoprolol AFib: Continue Eliquis and metoprolol COPD: Stable Dementia: Delirium precautions. Mental status at baseline currently DVT prophylaxis: Patient on Eliquis Code status: DNR/DNI, confirmed with patient's daughter Quality Stroke Does the patient have a stroke diagnosis?: No VTE Prior VTE?: No VTE Risk Level:: Medical - moderate - high VTE Device Contraindication: N/A - Device Ordered VTE Drug Contraindication: N/A - Med Ordered
--- NOTE | 2024-12-25 11:30 | MHC.CM.PN ---
Patient not medically cleared for dc. CM will continue to follow.
[2024-12-25 11:43] LABS: Glucose, Whole Blood 160 mg/dL (60-115)
[2024-12-25 13:01] LABS: Anion Gap 13 (12-20); Blood Urea Nitrogen 12 mg/dL (9-16); Calcium 8.8 mg/dL (8.4-10.2); Carbon Dioxide 30 mmol/L (22-29); Chloride 101 mmol/L (96-108); Creatinine Clr Calc Pharmacy 58.1; Estimated Glomerular Filt Rate > 60; Glucose Random 212 mg/dL (60-115); Lipase 63 U/L (8-78); Potassium 3.5 mmol/L (3.3-5.1); Sodium 140 mmol/L (135-145)
[2024-12-25 17:04] LABS: Glucose, Whole Blood 210 mg/dL (60-115)
[2024-12-25] MEDS: HYDROmorphone HCl 0.5 MG/0.5 ML SYRINGE IVPUSH (17:06)
[2024-12-25] MEDS: Montelukast Sodium 10 MG TABLET PO (21:06)
[2024-12-25] MEDS: Atorvastatin Calcium 20 MG TABLET PO (21:06)
[2024-12-25 21:07] LABS: Glucose, Whole Blood 216 mg/dL (60-115)
[2024-12-26] MEDS: 0.9 % Sodium Chloride Flush 3 ML SYRINGE IVFLUSH ×2 (00:19→07:55)
[2024-12-26 03:40] VITALS: BP 145/82; PULSE 86; RESP 16; TEMP 36.4; O2SAT 94
[2024-12-26] MEDS: Omeprazole 20 MG CAPSULE.DR PO (06:05)
[2024-12-26 07:38] LABS: Glucose, Whole Blood 160 mg/dL (60-115)
[2024-12-26 07:41] VITALS: BP 139/71; PULSE 68; RESP 18; TEMP 36.6; O2SAT 97
[2024-12-26] MEDS: Furosemide 20 MG TABLET PO (07:55)
[2024-12-26] MEDS: Insulin Lispro 100 UNIT/ML 3 ML VIAL SUBCUT ×2 (07:55→11:37)
[2024-12-26] MEDS: polyethylene glycoL 3350 17 GM POWD.PACK PO (07:57)
[2024-12-26] MEDS: Loratadine 10 MG TABLET PO (07:57)
[2024-12-26] MEDS: Metoprolol Succinate ER 50 MG TAB.ER.24H PO (07:57)
[2024-12-26] MEDS: Clotrimazole 1 % Cream 15 GM TUBE 1 APPL TOPICAL (07:59)
[2024-12-26] MEDS: HYDROmorphone HCl 0.5 MG/0.5 ML SYRINGE IVPUSH (08:13)
--- NOTE | 2024-12-26 09:29 | HO.PM.IMPN ---
Subjective Subjective Date of Service: 12/26/24 Interval History: Patient is not reporting pain, but pain but she's always crying for her daughter Constitutional Constitutional: Reports fever(s) Physical Exam Vital Signs: Vital Signs: Last Vital Signs Temp 97.9 F 12/26/24 07:41 Pulse 68 12/26/24 07:41 Resp 18 12/26/24 07:41 BP 139/71 12/26/24 07:41 Pulse Ox 97 12/26/24 07:41 O2 Del Method Room Air 12/26/24 07:41 BMI result Body Mass Index 31.9 General: no acute distress Resp: CTA bilateral CVS: S1,S2,RRR GI: +BS, NT, no distention Skin: No rash Neuro: motor grossly intact Psych: appropriate affect Objective Data Active Medications Acetaminophen (Acetaminophen 325 Mg Tablet) 650 mg PO Q6H PRN PRN Reason: Pain, Mild 1-3,fever,headache Albuterol Sulfate (Albuterol Sulfate (0.083%) 2.5 Mg/3 Ml Vial.Neb) 2.5 mg INHALE RQ6H PRN PRN Reason: wheezing/SOB Apixaban (Apixaban 5 Mg Tablet) 5 mg PO BID FLASH On Hold: 12/23/24 11:26 Last Admin: 12/23/24 08:01 Dose: 5 mg Documented By: KEY Atorvastatin Calcium (Atorvastatin Calcium 20 Mg Tablet) 20 mg PO BEDTIME FLASH Last Admin: 12/25/24 21:06 Dose: 20 mg Documented By: TIMUR Bisacodyl (Bisacodyl 10 Mg Supp.Rect) 10 mg IN DAILY PRN PRN Reason: Constipation Budesonide (Budesonide 0.25 Mg/2 Ml Ampul.Neb) 0.25 mg INHALE RBID [facility] Last Admin: 12/26/24 07:56 Dose: Not Given Documented By: IAIN Non-Admin Reason: Patient Condition Contraindication Calcium Carbonate (Calcium Carbonate 750 Mg Tab.Chew) 750 mg PO Q4H PRN PRN Reason: Heartburn Clotrimazole (Clotrimazole 1 % Cream 15 Gm Tube) 1 appl TOPICAL DAILY FLASH; Protocol Last Admin: 12/26/24 07:59 Dose: 1 appl Documented By: CHARANJIT Dextrose (Dextrose 50 % 25 Gm/50 Ml Syringe) 25 gm IVPUSH Q15M PRN; Protocol PRN Reason: per Hypoglycemia Standing Ord. Furosemide (Furosemide 20 Mg Tablet) 20 mg PO DAILY [facility]; Protocol Last Admin: 12/26/24 07:55 Dose: 20 mg Documented By: CHARANJIT Glucose (Glucose Gel 15 Gm Gel..Gram.) 15 gm PO Q15M PRN; Protocol PRN Reason: per Hypoglycemia Standing Ord. Hydromorphone HCl (Hydromorphone Hcl 0.5 Mg/0.5 Ml Syringe) 0.5 mg IVPUSH Q4H PRN; Protocol PRN Reason: Pain, Severe (Pain Scale 7-10) Last Admin: 12/26/24 08:13 Dose: 0.5 mg Documented By: CHARANJIT Insulin Human Lispro (Insulin Lispro 100 Unit/Ml 3 Ml Vial) 0 unit SUBCUT QIDACHS [facility]; Protocol Last Admin: 12/26/24 07:55 Dose: 2 unit Documented By: CHARANJIT Loratadine (Loratadine 10 Mg Tablet) 10 mg PO DAILY [facility] Last Admin: 12/26/24 07:57 Dose: 10 mg Documented By: CHARANJIT Magnesium Hydroxide (Milk Of Magnesia 30 Ml Oral.Susp) 30 ml PO DAILY PRN PRN Reason: Constipation Magnesium Hydroxide (Milk Of Magnesia 30 Ml Oral.Susp) 30 ml PO DAILY PRN PRN Reason: Constipation Melatonin (Melatonin 3 Mg Tablet) 6 mg PO BEDTIME PRN PRN Reason: Insomnia Metoprolol Succinate (Metoprolol Succinate Er 50 Mg Tab.Er.24h) 50 mg PO DAILY [facility]; Protocol Last Admin: 12/26/24 07:57 Dose: 50 mg Documented By: CHARANJIT Montelukast Sodium (Montelukast Sodium 10 Mg Tablet) 10 mg PO BEDTIME [facility] Last Admin: 12/25/24 21:06 Dose: 10 mg Documented By: TIMUR Omeprazole (Omeprazole 20 Mg Capsule.) 20 mg PO DAILY@0630 [facility] Last Admin: 12/26/24 06:05 Dose: 20 mg Documented By: TIMUR Polyethylene Glycol (Polyethylene Glycol 3350 17 Gm Powd.Pack) 17 gm PO DAILY [facility] Last Admin: 12/26/24 07:57 Dose: 17 gm Documented By: CHARANJIT Sodium Biphosphate/Sodium Phosphate (Sodium Phosphate,Emmet-Dibasic 133 Ml Enema) 118 ml IN DAILY PRN PRN Reason: Constipation Sodium Chloride (0.9 % Sodium Chloride Flush 3 Ml Syringe) 3 ml IVFLUSH QSHIFT [facility] Last Admin: 12/26/24 07:55 Dose: 3 ml Documented By: CHARANJIT Labs 12/24/24 09:41 12/25/24 12:37 Labs: Laboratory Results - last 24 hr 12/25/24 12/25/24 12/25/24 11:38 12:37 16:53 Anion Gap 13 Estim Creat Clear Calc 58.1 Estimated GFR > 60 POC Glucose 160 H 210 H Random Glucose 212 H Calcium 8.8 D Lipase 63 12/25/24 12/26/24 20:52 07:34 Anion Gap Estim Creat Clear Calc Estimated GFR POC Glucose 216 H 160 H Random Glucose Calcium Lipase Microbiology Microbiology Results: Microbiology 12/23/24 Unknown Urine Culture - Final Urine clean catch - Clean Catch Midstream Assessment and Plan (1) Acute pancreatitis: Status: Acute (2) Abdominal pain: Status: Acute Plan 79-year-old female with a past medical history of HTN, HLD,DM, CHF, AFib, COPD, dementia, half-way resident presented to the hospital with a chief complaint of abdominal pain. Noted to have acute pancreatitis. Acute pancreatitis: likely gallstone related MRCP confirms pancreatitis but no CBC stone presently no pain' Advancing diet to low fat No plan for CCy if able to manage conservatively Diabetes: Insulin sliding scale Hypertension: Continue metoprolol AFib: Continue Eliquis and metoprolol COPD: Stable Dementia: Delirium precautions. Mental status at baseline currently DVT prophylaxis: Patient on Eliquis Code status: DNR/DNI, confirmed with patient's daughter Will disccharge if tolerate diet Quality Stroke Does the patient have a stroke diagnosis?: No VTE Prior VTE?: No VTE Risk Level:: Medical - moderate - high VTE Device Contraindication: N/A - Device Ordered VTE Drug Contraindication: N/A - Med Ordered
--- NOTE | 2024-12-26 09:41 | PM.DS ---
DS: Providers Provider Date of Service: 12/26/24 Date of admission: 12/23/24 04:20 Date of discharge: 12/26/24 Primary care physician: Mike Bello MD Consults: 12/23/24 04:20 Consult to Gastroenterology Routine Consulting Provider: Jason Pino Reason for consultation: pancreatitis 12/24/24 07:57 Consult to General Surgery [place]ine [place]ing [place] [facility] [place] [facility] Reason for consultation: gallstones, pancreaitis DS: Diagnosis Discharge Diagnosis (1) Acute pancreatitis: Status: Acute (2) Abdominal pain: Status: Acute DS: Summary Hospital Course Hospital Course: admission hpi Chief Complaint: abd pain 79-year-old female with a past medical history of HTN, HLD,DM, CHF, AFib, COPD, dementia, [facility] resident presented to the hospital with a chief complaint of abdominal pain. Reportedly patient has been having abdominal pain since yesterday surgeon nausea. Denies any diarrhea. Reports her pain is mostly in the epigastrium. Nonradiating. Denies any fevers and chills. Denies any chest pain or palpitations. Denies any alcohol use or illicit drug use. Spoke to the patient's daughter over the phone. Review of all other systems is negative except mentioned above ER course: Per ER team, patient noted to have diffuse abdominal tenderness but more so in the epigastrium; lipase elevated to greater than 3000; slight dilution liver enzymes; CT abdomen pelvis showed findings concerning for pancreatitis. Given pain medication. Hospital course: A 59-year-old female [facility] resident with a history of hypertension, hyperlipidemia, diabetes mellitus, congestive heart failure, atrial fibrillation, COPD, and dementia presented to the hospital with abdominal pain. Diagnostic workup revealed acute pancreatitis, with an initial lipase level >3,[address] scan suggestive of pancreatitis, though subsequent lipase levels normalized. She was admitted and managed with IV fluids, pain medication, and consultations from gastroenterology and surgery. An MRCP showed: Mild edema at the pancreatic head, consistent with mild pancreatitis. No choledocholithiasis, pancreatic head mass, or organized fluid collection. Gallbladder nearly filled with cholelithiasis, without signs of cholecystitis or choledocholithiasis. Surgery deemed her unsuitable for cholecystectomy at this time. Her diet was advanced, and she is tolerating a regular diet. Current lipase level is normal at 63, and she reports no pain. Likely diagnosis is acute gallstone pancreatitis with a passed stone. Consider cholecystectomy in the future if recurrent. Outpatient follow up with surgery Diabetes: Insulin sliding scale in the hospial resume jardiance at discharge Hypertension: Continue metoprolol AFib: Continue Eliquis and metoprolol COPD: Stable, no exacerbation Dementia: Delirium precautions. Mental status at baseline currently Final diagnoses: Acute gallstone pancreatitis diabetes HTN chronic afib Dementia Time Attestation Discharge Coordination Time (in mins): 40 Quality: Safe Use of Opioids Does Pt have an Active Cancer Diagnosis on the Problem List?: No Quality: Stroke Does the patient have a stroke diagnosis?: No Physical Exam Vital Signs: Vital Signs: Last Vital Signs Temp 97.9 F 12/26/24 07:41 Pulse 68 12/26/24 07:41 Resp 18 12/26/24 07:41 BP 139/71 12/26/24 07:41 Pulse Ox 97 12/26/24 07:41 O2 Del Method Room Air 12/26/24 07:41 BMI result Body Mass Index 31.9 General: no acute distress Resp: CTA bilateral CVS: S1,S2,RRR GI: +BS, NT, no distention Skin: No rash Neuro: motor grossly intact Psych: appropriate affect DS: Data Data Completed and Pending Labs on day of discharge: Laboratory Results - last 24 hr 12/25/24 12/25/24 12/25/24 11:38 12:37 16:53 Sodium 140 Potassium 3.5 D Chloride 101 Carbon Dioxide 30 H Anion Gap 13 BUN 12 Creatinine 0.84 Estim Creat Clear Calc 58.1 Estimated GFR > 60 POC Glucose 160 H 210 H Random Glucose 212 H Calcium 8.8 D Lipase 63 12/25/24 12/26/24 20:52 07:34 Sodium Potassium Chloride Carbon Dioxide Anion Gap BUN Creatinine Estim Creat Clear Calc Estimated GFR POC Glucose 216 H 160 H Random Glucose Calcium Lipase Discharge Plan Discharge Anticipated Discharge Date/Time: 12/26/24 12:56 Patient Disposition: Xfer SNF Discharge Diagnosis: Acute gallstone pancreaitis Referrals: [facility] [Outside] - 1 Week Referral Note: resume LTC Mike Bello MD [Primary Care Provider, Internal Medicine] - 1 Week Raul Weiss MD [Physician, General Surgery] - 3 Weeks Discharge Medications: Continued acetaminophen 325 mg Tablet 650 mg PO Q4H PRN (Reason: Fever Or Pain) acetaminophen 650 mg Suppository 650 mg [place] Q4H PRN (Reason: pain or fever) atorvastatin 20 mg tablet 20 mg PO BEDTIME albuterol sulfate 2.5 mg /3 mL (0.083 %) solution for nebulization 2.5 mg inhalation Q6H PRN (Reason: wheezing/SOB) polyethylene glycol 3350 [Miralax] 17 gram Powder In Packet 17 g PO DAILY metoprolol succinate 100 mg tablet extended release 24 hr 100 mg PO DAILY melatonin 3 mg Tablet 6 mg PO BEDTIME magnesium hydroxide [Milk of Magnesia] 400 mg/5 mL Suspension 30 ml PO DAILY PRN (Reason: Constipation) bisacodyl 10 mg Suppository 10 mg [place] DAILY PRN (Reason: Constipation) Fleet Enema 19-7 gram/118 mL Enema 118 ml [place] DAILY PRN (Reason: Constipation) budesonide 0.25 mg/2 mL suspension for nebulization 0.25 mg inhalation BID omeprazole 20 mg capsule,delayed release(DR/EC) 20 mg PO DAILY montelukast 10 mg Tablet 10 mg PO BEDTIME furosemide 20 mg Tablet 20 mg PO DAILY clotrimazole 1 % Cream 1 appl TOPICAL DAILY Rx Instructions: Apply to under bilateral breast loratadine 10 mg tablet 10 mg PO DAILY glipizide 5 mg tablet 5 mg PO BIDAC oxycodone 5 mg tablet 5 mg PO DAILY@1200 Eliquis 5 mg tablet 5 mg PO BID Jardiance 10 mg tablet 10 mg PO DAILY oxycodone 10 mg Tablet,Oral Only,Ext.Rel.12 Hr 10 mg PO BID@0900,2100 Rx Instructions: q12h Discharge Orders: Discharge Order (Routine); Ordered 12/26/24 Ordered By: Eitan Cartagena Diet: Advance to usual diet Activity on Discharge: As tolerated Stand Alone Forms: Patient Portal Discharge page Print Language: Indonesian Care Plan Goals: recovery from gallstone pancreaitis Health Concerns: gallstones with pancreaitis Plan of Treatment: resume all prior medication, avoid fatty foods, follow up with your Doctor in a week, call for appointment follow up with Dr. Hernandez to discuss posibility of surgery for gallstones Assessment: see above
[2024-12-26 11:11] VITALS: BP 116/55; PULSE 60; RESP 17; TEMP 36.2; O2SAT 94
[2024-12-26 11:19] LABS: Glucose, Whole Blood 180 mg/dL (60-115)
--- NOTE | 2024-12-26 12:59 | MHC.CM.PN ---
Addendum entered by Elzbieta Perez RN 12/26/24 14:02: [facility] transport auth obtained via [facility]. Stevenson marie. Booking ID [id number] Original Note: Per MD patient medically cleared for dc back to [facility] to resume LTC. CM notified daughter/HCP. BLS booked for 230pm. Attempted to call [facility] for [facility] transportation auth and their system is down. They will call back when able to process auth. Stevenson marie.
[2024-12-26 14:54] VITALS: BP 129/54; PULSE 76; RESP 18; TEMP 36.4; O2SAT 94
--- NOTE | 2024-12-27 11:08 | P.CDIM_ITS ---
PROVIDER RESPONSE TEXT: To clarify, the appropriate diagnosis supported by the clinical indicators: Diastolic: chronic QUERY TEXT: PHYSICIAN'S DOCUMENTATION REQUEST Date of Query: 12/25/2024 02:30 PM EDT Patient Name: Tammy Gardner Admit Date: 12/23/2024 Dear Eitan Cartagena MD, A review of the medical record indicates additional documentation may be needed. Please review below and update the documentation accordingly. Clinical Indicators: PMH CHF Metoprolol succinate po daily Lasix po daily Please provide further specificity regarding the most likely type and acuity of CHF you are evaluating, treating, or monitoring. Systolic Please specify if Acute, Chronic, or Acute on chronic, or Unable to determine Diastolic Please specify if Acute, Chronic, or Acute on chronic, or Unable to determine Combined Systolic/Diastolic Please specify if Acute, Chronic, or Acute on chronic, or Unable to determine Other (explain) Clinically unable to determine (explain) Thank you, Ketty Garcia RN Use of terms such as suspected, likely, concern for, or probable (associated with a specific diagnosis that is being evaluated, monitored, or treated as if it exists) are acceptable and can be coded in the inpatient setting, when documented at the time of discharge. Please use your independent medical judgment in providing your response. THIS QUERY IS PART OF THE PERMANENT MEDICAL RECORD
== END 2024-12-26 15:09 | disposition skilled nursing facility (03) | DRG 439 ==
LOC: HO.ED 01:42 → HO.EDOVER 05:39 → HO.IMC 16:32 → HO.S3 12-25 05:10
PROVIDERS: Internal Medicine Gastroenterology; Physician Assistant Medical; Admitting Provider Hospitalist; Emergency Provider Internal Medicine; PCP Family Medicine; Visit Provider Internal Medicine
DX: K85.10 Biliary acute pancreatitis without necrosis or infection (principal); F03.918 Unspecified dementia, unspecified severity, with other behavioral disturbance; I50.32 Chronic diastolic (congestive) heart failure; I11.0 Hypertensive heart disease with heart failure; E11.9 Type 2 diabetes mellitus without complications; K80.20 Calculus of gallbladder without cholecystitis without obstruction; I48.91 Unspecified atrial fibrillation; Z66 Do not resuscitate; Z20.822 Contact with and (suspected) exposure to COVID-19; Z79.01 Long term (current) use of anticoagulants; Z79.84 Long term (current) use of oral hypoglycemic drugs; Z79.899 Other long term (current) drug therapy
CPT/HCPCS: 0241U; 36415; 71045; 74176; 74181; 80048; 80053; 80061; 80076; 81001; 82947; 83690; 83735; 83880; 84484; 85025; 85027; 86704; 86706; 86709; 86803; 87086; 87340; 93005; 94640; 99285; J1171; J1650

== ENCOUNTER → 2024-12-23 00:40 | Outpatient (BNV) | payer MEDICARE, SELFPAY | PROVIDERS: Admitting Provider Hospitalist; Emergency Provider Internal Medicine; PCP Family Medicine; Visit Provider Internal Medicine Cardiovascular Disease | DX: I45.10 Unspecified right bundle-branch block (principal); R00.1 Bradycardia, unspecified | CPT/HCPCS: 93010 ==

== ENCOUNTER → 2024-12-23 00:40 | Outpatient (BNV) | payer MEDICARE, SELFPAY | PROVIDERS: Emergency Provider Internal Medicine; PCP Family Medicine; Visit Provider Radiology Diagnostic Radiology | DX: K57.30 Diverticulosis of large intestine without perforation or abscess without bleeding (principal); K80.20 Calculus of gallbladder without cholecystitis without obstruction; R07.9 Chest pain, unspecified | CPT/HCPCS: 71045; 74176; 74181 ==

== ENCOUNTER → 2024-12-23 04:20 | Outpatient (BNV) | payer MEDICARE, SELFPAY | PROVIDERS: Admitting Provider Hospitalist; Emergency Provider Internal Medicine; PCP Family Medicine; Visit Provider Hospitalist | DX: K85.90 Acute pancreatitis without necrosis or infection, unspecified (principal); R10.9 Unspecified abdominal pain | CPT/HCPCS: 99223; 99232; 99499 ==

== ENCOUNTER → 2024-12-23 04:20 | Outpatient (BNV) | payer MEDICARE, SELFPAY | PROVIDERS: Admitting Provider Hospitalist; Emergency Provider Internal Medicine; PCP Family Medicine; Visit Provider Physician Assistant Surgical | DX: R10.9 Unspecified abdominal pain (principal); K85.90 Acute pancreatitis without necrosis or infection, unspecified | CPT/HCPCS: 99222; 99232 ==

== ENCOUNTER 2025-03-19 09:07 | Inpatient (IN) | payer OTHER, SELFPAY ==
[2025-03-19] VITALS (10 sets, daily range): BP systolic 113–203; BP diastolic 66–90; PULSE 60–100; RESP 15–22; TEMP 36.1–37.7; O2SAT 92–100; BMI 33.1
--- NOTE | ~2025-03-19 | CT_ITS ---
EXAMINATION: CT ABDOMEN AND PELVIS WITHOUT CONTRAST CLINICAL INFORMATION: Poor appetite. COMPARISON: December 23, 2024. TECHNIQUE: Multidetector volumetric imaging was performed from the superior aspect of the liver through the pubic symphysis. Sagittal and coronal reformatted images were obtained on the technologist's workstation. This CT examination was performed using dose optimization techniques as appropriate, variously including the following: *Automated exposure control *Adjustment of mA and/or kV according to patient size (this includes techniques or standardized protocols for targeted exams where dose is matched to indication/reason for exam; i.e. extremities or head) *Use of iterative reconstruction technique DLP: 973 mGy centimeter. FINDINGS: Patient's motion artifact. Inadequate evaluation of the intra-abdominal solid organs and vascular structures due to lack of IV contrast. LUNG BASES: No acute airspace disease. LIVER, GALLBLADDER, AND BILIARY TREE: Liver measures 12 cm in maximum length. Subtle nodular surface. Gallbladder is fluid-filled prominent. Edentulous gallbladder wall. Common bile duct measures 10 mm in maximum diameter. No gross intraluminal calcifications in the biliary system. PANCREAS: No peripancreatic fluid collections. No main pancreatic ductal dilatation. SPLEEN: 7 cm. ADRENAL GLANDS: No nodular lesions. KIDNEYS AND URETERS: No hydronephrosis. No gross nephrolithiasis. Kidneys are rather small with likely renal cortical thinning. No dilatation of the ureters. BLADDER: Fluid-filled. GASTROINTESTINAL TRACT: Abundant stool in the large intestine. No gross intestinal wall thickening. No intestinal obstruction pattern. There are 10 mm round hyperdense structures within the cecum and rectum. Appendix is normal. No ascites. No pneumoperitoneum. Mesenteric edema pattern. Few scattered diverticula in the sigmoid colon. . ABDOMINAL WALL: No gross umbilical hernia. LYMPH NODES: No specific prominent mesenteric and inguinal. VASCULAR: Calcified plaques in the aortic valve, mitral valve, coronary arteries, mixed plaques throughout the aorta and iliac arteries as well as celiac trunk and SMA origin of the main renal arteries. No gross aneurysm, abdominal aorta. PELVIC VISCERA: No gross masses. OSSEOUS STRUCTURES: Osteopenia versus osteoporosis. Multilevel syndesmophyte formation and marginal osteophyte formation throughout the thoracic spine. Marginal osteophyte formation and endplate sclerosis decreased intervertebral disc height and subchondral cyst formation from L3 to S1. Grade 1 retrolisthesis L5-S1. Degenerative changes in the sacroiliac joints, symphysis pubis and coxofemoral joints. No acute fracture. CT/CT abdomen pelvis wo IV con IMPRESSION: Concerning acute cholecystitis in the correct clinical settings alternative diagnosis of hepatitis/hepatocellular disease versus prolonged fasting. Probable medical renal disease. Atherosclerosis disease and coronary artery disease. Diverticular disease, sigmoid colon. Probable radiopaque tablets versus foreign bodies in the cecum and rectum. Osteopenia versus osteoporosis. Multilevel thoracolumbar spondylosis. Fleischner guidelines were followed. Electronically signed by: Cristhian Schmidt MD 03/20/2025 08:23 AM EDT
--- NOTE | ~2025-03-19 | XR_ITS ---
CLINICAL HISTORY: sob 1 view chest x-ray Comparison: CR - XR CHEST 1V - 12/23/24 01:31 EDT Findings: The heart is borderline enlarged. Mild prominence of central pulmonary vasculature. No consolidation, significant pleural effusion or pneumothorax. No pulmonary edema. No acute fracture. IMPRESSION: 1. Borderline cardiomegaly and mild prominence of pulmonary vasculature. No pulmonary edema. This document has been electronically signed by: Stefanie Onofre MD on 03/19/2025 18:12:55
--- NOTE | ~2025-03-19 | CT_ITS ---
EXAMINATION: CT HEAD WITHOUT CONTRAST CLINICAL INFORMATION: Encephalopathy. COMPARISON: None available. TECHNIQUE: Contiguous axial imaging was performed from the skull base to vertex without intravenous administration of contrast. This CT examination was performed using dose optimization techniques as appropriate, variously including the following: *Automated exposure control *Adjustment of mA and/or kV according to patient size (this includes techniques or standardized protocols for targeted exams where dose is matched to indication/reason for exam; i.e. extremities or head) *Use of iterative reconstruction technique FINDINGS: There is mild motion degradation. This limits sensitivity of the exam. There is no evidence of intracranial hemorrhage or extra-axial fluid collection. There is no mass effect, or edema. No CT evidence of acute territorial infarct. Ventricles, sulci, and cisterns are mildly diffusely prominent, in keeping with age-related cerebral and cerebellar volume loss. No hydrocephalus. No midline shift. Negative hyperdense MCA sign. Negative insular ribbon sign. Patchy periventricular and deep white matter hypoattenuation is consistent with moderate small vessel ischemic changes. Old lacunar type infarct in the left anterior gangliocapsular region. There is a partial empty sella present. Globes and orbital contents image normally. There are bilateral lens replacements. No extracranial soft tissue abnormalities. The paranasal sinuses, mastoid air cells, and tympanic cavities are normally aerated. No suspicious bony abnormalities. There are no acute fractures evident. CT/CT head/brain wo IV con IMPRESSION: 1. No acute intracranial abnormality. 2. Age-related cerebral and cerebellar volume loss, and moderate changes of small vessel ischemia. Electronically signed by: Nabil Ramirez MD 03/23/2025 10:15 AM EDT
[2025-03-19 09:28] LABS: Glucose, Whole Blood 84 mg/dL (60-115)
--- NOTE | 2025-03-19 09:51 | PC.NURSE ---
Pt is alert/oriented x 2. Reports generalized body pain mostly noted to b/l knee, head and right arm. States pain is chronic with staff neuropsychology medical consultant. Sent for hypoglycemia from [facility], takes Jardiance. POC 84 on arrival. Rectal temp 100 Changed to hospital attire, awaits ED provider kourtney
--- NOTE | 2025-03-19 10:17 | ED.RECABL ---
HPI - Recheck/Abnormal Lab/Rx General Chief Complaint: Recheck/Abnormal Lab/Rx Stated Complaint: LOW BS 61 @ SNF PER EMS Time Seen by Provider: 03/19/25 09:56 Source: patient and EMS Mode of arrival: EMS Limitations: other History of Present Illness ED Provider: HPI narrative: 79-year-old woman is here with her daughter presenting with reports of hypoglycemia and reports a low blood pressure at the facility, patient is complaining of leg burning. Patient's daughter is also not sure if she eats a regular basis. Related Data Home Medications ?Medication ?Instructions ?Recorded ?Confirmed acetaminophen 325 mg tablet 650 mg PO Q4H PRN Fever Or Pain 12/23/24 12/23/24 acetaminophen 650 mg rectal 650 mg NH Q4H PRN pain or fever 12/23/24 12/23/24 suppository albuterol sulfate 2.5 mg/3 mL 2.5 mg inhalation Q6H PRN 12/23/24 12/23/24 (0.083 %) solution for nebulization wheezing/SOB apixaban 5 mg tablet (Eliquis) 5 mg PO BID 12/23/24 12/23/24 atorvastatin 20 mg tablet 20 mg PO BEDTIME 12/23/24 12/23/24 bisacodyl 10 mg rectal suppository 10 mg NH DAILY PRN Constipation 12/23/24 12/23/24 budesonide 0.25 mg/2 mL suspension 0.25 mg inhalation BID 12/23/24 12/23/24 for nebulization clotrimazole 1 % topical cream 1 appl topical DAILY 12/23/24 12/23/24 empagliflozin 10 mg tablet 10 mg PO DAILY 12/23/24 12/23/24 (Jardiance) furosemide 20 mg tablet 20 mg PO DAILY 12/23/24 12/23/24 glipizide 5 mg tablet 5 mg PO BIDAC 12/23/24 12/23/24 loratadine 10 mg tablet 10 mg PO DAILY 12/23/24 12/23/24 magnesium hydroxide 400 mg/5 mL 30 ml PO DAILY PRN Constipation 12/23/24 12/23/24 oral suspension (Milk of Magnesia) melatonin 3 mg tablet 6 mg PO BEDTIME 12/23/24 12/23/24 metoprolol succinate 100 mg 100 mg PO DAILY 12/23/24 12/23/24 tablet,extended release 24 hr montelukast 10 mg tablet 10 mg PO BEDTIME 12/23/24 12/23/24 omeprazole 20 mg capsule,delayed 20 mg PO DAILY 12/23/24 12/23/24 release oxycodone 10 mg tablet,crush 10 mg PO BID@0900,2100 12/23/24 12/23/24 resistant,extended release 12 hr oxycodone 5 mg tablet 5 mg PO DAILY@1200 12/23/24 12/23/24 polyethylene glycol 3350 17 gram 17 g PO DAILY 12/23/24 12/23/24 oral powder packet (Miralax) sodium phosphates 19 gram-7 118 ml NH DAILY PRN Constipation 12/23/24 12/23/24 gram/118 mL enema (Fleet Enema) Allergies Allergy/AdvReac Type Severity Reaction Status Date / Time levofloxacin (From LEVAQUIN) Allergy Unknown UNKNOWN Verified 12/23/24 00:54 montelukast (From SINGULAIR) Allergy Unknown UNKNOWN Verified 12/23/24 00:54 penicillin G Allergy Unknown Unknown Verified 12/23/24 00:54 Penicillins (PCN) Allergy Unknown UNKNOWN Verified 12/23/24 00:54 valsartan (From DIOVAN) Allergy Unknown UNKNOWN Verified 12/23/24 00:54 hydrochlorothiazide Allergy Unknown Verified 03/19/25 09:23 lisinopril Allergy Unknown Verified 03/19/25 09:23 Review of Systems Constitutional: Constitutional: Reports as per [facility] Past Medical History Medical History (Updated 03/19/25 @ 18:30 by Fernando Wayne MD) Dementia Abdominal pain Social History Social History Household Members: Caregiver Housing: Assisted Living Facility Do you presently have visiting nurse or other home services: Yes (SNF per report.) Patient Tobacco Use Status: Never used Tobacco Smoked in Last 30 Days: No Second Hand Smoke Exposure: No Use of substances other than those prescribed or required for medical reasons: No Advance Directives: Yes Advance Directives Information Provided: No Advance Directives on File: No service: No Physical Exam Vital Signs: Vital Signs: Last Vital Signs Temp 98.5 F 03/19/25 18:14 Pulse 75 03/19/25 18:14 Resp 15 03/19/25 18:14 BP 155/72 H 03/19/25 18:14 Pulse Ox 100 03/19/25 18:14 O2 Del Method Room Air 03/19/25 18:14 BMI result Body Mass Index 33.1 Const: Other: Gen: ?Overall well-appearing patient HEENT: Moist oral mucosa Neck: Supple, no LAD CV: S1-S2 RRR Resp: ?No wheezing rales rhonchi no stridor moving air well Abd: ?Bowel sounds are present, no tenderness no rebound no rigidity MSK: FROM, strength 5/5 all extremities Skin: Warm, dry, intact, no lower extremity edema Neuro: ?Alert to self, moving upper and lower extremities symmetrically, no obvious facial asymmetry noted Medications Administered Discontinued Medications Generic Name Dose Route Start Last Admin Trade Name Freq PRN Reason Stop Dose Admin Acetaminophen 975 mg 03/19/25 11:05 03/19/25 11:10 Acetaminophen 325 Mg Tablet PO 03/19/25 11:06 975 mg ONCE ONE Administration Dextrose 25 gm 03/19/25 12:25 03/19/25 12:30 Dextrose 50 % 25 Gm/50 Ml Syringe IVPUSH 03/19/25 12:26 25 gm ONCE ONE Administration Dextrose 25 gm 03/19/25 17:44 03/19/25 17:46 Dextrose 50 % 25 Gm/50 Ml Syringe IVPUSH 03/19/25 17:45 25 gm ONCE ONE Administration Haloperidol Lactate 2.5 mg 03/19/25 14:15 03/19/25 14:31 Haloperidol Lactate 5 Mg/Ml Vial IVPUSH 03/19/25 14:16 2.5 mg ONCE ONE Administration Sodium Chloride 1,000 mls @ 999 mls/hr 03/19/25 12:00 03/19/25 13:05 Ns IV 03/19/25 13:00 Infused .Q1H1M FLASH Infusion Dextrose/Sodium Chloride 1,000 mls @ 80 mls/hr 03/19/25 17:45 03/19/25 18:46 D51/2ns IVCONT Infused .[id number] FLASH Infusion Octreotide Acetate 50 mcg 03/19/25 16:04 03/19/25 16:25 Octreotide Acetate 100 Mcg/Ml Ampul SUBCUT 03/19/25 16:05 50 mcg ONCE ONE Administration Oxycodone HCl 5 mg 03/19/25 12:28 03/19/25 12:35 Oxycodone Hcl Immed Release 5 Mg Tablet PO 03/19/25 12:29 5 mg ONCE ONE Administration Medical Decision Making Medical Decision Making MDM Narrative: 10:41 AM 03/19/2025 (Dr. Nba Smith): Patient reported to be hypoglycemic likely the setting of your regular p.o. intake. On my evaluation she is doing well she is only complaining of leg burning with a history of diabetes likely neuropathy, there was no evidence for DVT or any arterial insufficiency or cellulitis. 11:52 AM 03/19/2025 (Dr. Nba Smith): Glucose has been reassuring, vital signs are stable, unable to obtain urinalysis I would have to sedate the patient that it did not feel that there is indicated, noted leukocytosis with left shift but has had no fevers or tachycardia, we will give fluids and put a wick 12:25 PM 03/19/2025 (Dr. Nba Smith): Patient is refusing take p.o. and becoming hypoglycemic again, we will give IV dextrose, still awaiting urinalysis but ultimately we will anticipate admission. 12:29 PM 03/19/2025 (Dr. Nba Smith): Spoke to patient's daughter over the phone, patient is refusing to eat and so this is happened in the past and daughter states when she is in pain, I will medicate the patient for pain, patient also has frequent UTIs may need admission. But has not been reported to her that she has not any areas symptoms Patient was signed out to me pending UA for evaluation for symptoms. Patient appears to be awake and alert to me. However repeat blood sugar shows sugar drops into the 40s. Patient was given some subcutaneous octreotide. It started the patient on a amp of D50 and maintenance dextrose fluid. We will plan to admit patient for hyperglycemia recurrence secondary to sulfonylurea use. Nursing staff did note that patient did have episode of hypoxia when she is asleep. She is placed on 2 L nasal cannula. I do not think it is a PE as she is currently on Eliquis and anticoagulated. The patient is not complaining of any chest pain not complaining of shortness of breath not complain of any abdominal. UA did not show any signs of UTI Differential Diagnosis Differential Diagnoses: The differential diagnosis associated with the presentation includes (Dehydration, electrolyte derangements, UTI, ACS, failure to thrive) Admission/Observation Consideration of admission/observation: Escalation of care including admission/observation considered Lab Data MDM Lab Attestation statement: I reviewed the patient's lab results. 03/19/25 10:46 03/19/25 10:46 Labs: Lab Results 03/19/25 03/19/25 03/19/25 Range/Units 09:23 10:46 12:06 WBC 16.1 H (4.8-10.8) X10*3/uL RBC 4.66 (4.20-5.50) X10*6/uL Hgb 11.8 L (12.0-16.0) g/dl Hct 38.7 (37.0-47.0) % MCV 83.0 (80.0-98.0) fL MCH 25.3 L (27.0-33.0) pg MCHC 30.5 L (31.0-35.0) g/dl RDW 15.8 (11.0-16.0) % Plt Count 369 D (160-400) X10*3/uL MPV 10.0 (9.4-12.3) fL Immature Gran % (Auto) 0.4 (0.0-0.4) % Neut % (Auto) 81.4 H (45-73) % Lymph % (Auto) 11.7 L (20-40) % [place] % (Auto) 6.0 (2-11) % Eos % (Auto) 0.1 (0-4) % Baso % (Auto) 0.4 (0-2) % Lymph # (Auto) 1.9 (1.2-4.9) X10*3/uL [place] # (Auto) 1.0 (0.1-1.2) X10*3/uL Eos # (Auto) 0.0 (0.0-0.4) X10*3/uL Baso # (Auto) 0.1 (0.0-0.2) X10*3/uL Abs Immat Gran (auto) 0.07 H (0.00-0.03) X10*3/uL Absolute Neuts (auto) 13.1 H (2.0-8.3) x10*3/uL Absolute Nucleated RBC 0.000 (0.0-0.012) X10*3/uL Nucleated RBC % (auto) 0.0 (0.0-0.2) /100WBC Sodium 143 (135-145) mmol/L Potassium 4.5 D (3.3-5.1) mmol/L Chloride 103 (96-108) mmol/L Carbon Dioxide 33 H (22-29) mmol/L Anion Gap 12 (12-20) BUN 12 (9-16) mg/dL Creatinine 0.95 (0.5-1.4) mg/dL Estim Creat Clear Calc 46.8 Estimated GFR 57 POC Glucose 84 60 (60-115) mg/dL Random Glucose 90 (60-115) mg/dL Calcium 8.9 (8.4-10.2) mg/dL Total Bilirubin 0.6 (0.0-1.0) mg/dL AST 55 H (5-31) U/L ALT 26 (0-31) U/L Alkaline Phosphatase 187 H (39-117) U/L NT-Pro-B Natriuret Pep 1966.8 H (<300) pg/mL Total Protein 7.1 (6.5-8.0) g/dL Albumin 2.9 L (3.5-5.0) g/dL Urine Color Urine Appearance Urine pH (5.0-9.0) Ur Specific [place] (1.005-1.025) Urine Protein (Neg-Trace) mg/dL Urine Glucose (UA) (Negative) mg/dL Urine Ketones (Negative) mg/dL Urine Blood (Negative) Urine Nitrite (Negative) Ur Leukocyte Esterase (Negative) Urine RBC (0-2) /HPF Urine WBC (0-5) /HPF Ur Squamous Epith Cells (0-2) /HPF Urine Bacteria (None Seen) Hyaline Casts (0-2) /LPF 03/19/25 03/19/25 03/19/25 Range/Units 13:35 15:11 16:18 WBC (4.8-10.8) X10*3/uL RBC (4.20-5.50) X10*6/uL Hgb (12.0-16.0) g/dl Hct (37.0-47.0) % MCV (80.0-98.0) fL MCH (27.0-33.0) pg MCHC (31.0-35.0) g/dl RDW (11.0-16.0) % Plt Count (160-400) X10*3/uL MPV (9.4-12.3) fL Immature Gran % (Auto) (0.0-0.4) % Neut % (Auto) (45-73) % Lymph % (Auto) (20-40) % [place] % (Auto) (2-11) % Eos % (Auto) (0-4) % Baso % (Auto) (0-2) % Lymph # (Auto) (1.2-4.9) X10*3/uL [place] # (Auto) (0.1-1.2) X10*3/uL Eos # (Auto) (0.0-0.4) X10*3/uL Baso # (Auto) (0.0-0.2) X10*3/uL Abs Immat Gran (auto) (0.00-0.03) X10*3/uL Absolute Neuts (auto) (2.0-8.3) x10*3/uL Absolute Nucleated RBC (0.0-0.012) X10*3/uL Nucleated RBC % (auto) (0.0-0.2) /100WBC Sodium (135-145) mmol/L Potassium (3.3-5.1) mmol/L Chloride (96-108) mmol/L Carbon Dioxide (22-29) mmol/L Anion Gap (12-20) BUN (9-16) mg/dL Creatinine (0.5-1.4) mg/dL Estim Creat Clear Calc Estimated GFR POC Glucose 96 88 (60-115) mg/dL Random Glucose (60-115) mg/dL Calcium (8.4-10.2) mg/dL Total Bilirubin (0.0-1.0) mg/dL AST (5-31) U/L ALT (0-31) U/L Alkaline Phosphatase (39-117) U/L NT-Pro-B Natriuret Pep (<300) pg/mL Total Protein (6.5-8.0) g/dL Albumin (3.5-5.0) g/dL Urine Color Yellow Urine Appearance Clear Urine pH 7.0 (5.0-9.0) Ur Specific [place] 1.020 (1.005-1.025) Urine Protein 30 (1+) H (Neg-Trace) mg/dL Urine Glucose (UA) >=1000 H (Negative) mg/dL Urine Ketones Negative (Negative) mg/dL Urine Blood Negative (Negative) Urine Nitrite Negative (Negative) Ur Leukocyte Esterase Negative (Negative) Urine RBC 0-2 (0-2) /HPF Urine WBC 0-5 (0-5) /HPF Ur Squamous Epith Cells 3-5 (0-2) /HPF Urine Bacteria None Seen (None Seen) Hyaline Casts 0-2 (0-2) /LPF Independent Historian Clinical information obtained from an independent historian. History obtained from or confirmed by: Other (Daughter) Tests considered The following testing was considered but not selected: Chest x-ray Chronic Conditions Patient?s care impacted by: Diabetes Critical Care Time Critical Care Time Critical Care Time: Yes Total Critical Care Time: 45 Attestation: Time is exclusive of separately billable procedures. Time includes: direct patient care, patient reassessment, coordination of patient care, interpretation of data (laboratory data, pulse oximetry, arterial blood gases and chest xrays), review of patient's medical records, medical consultation and documentation of patient care. Procedures excluded from critical care time: central intravenous line placement and electrocardiography. Discharge Plan Discharge Clinical Impression: Hypoglycemia Patient Disposition: Admitted As Inpatient
--- NOTE | 2025-03-19 10:18 | ECG_ITS ---
Test Reason : WEAKNESS Blood Pressure : */* mmHG Vent. Rate : 81 BPM Atrial Rate : 81 BPM P-R Int : 150 ms QRS Dur : 130 ms QT Int : 400 ms P-R-T Axes : 64 -42 9 degrees QTcB Int : 465 ms Normal sinus rhythm Left axis deviation Right bundle branch block Abnormal ECG When compared with ECG of 23-Dec-2024 00:44, Vent. rate has increased by 28 bpm QT has lengthened Referred By: Nba Smith Electronically Signed By: EMI KHALIL
[2025-03-19 10:50] LABS: MANUAL DIFF FLAG NO
[2025-03-19 10:54] LABS: Hematocrit 38.7 % (37.0-47.0); Hemoglobin 11.8 g/dl (12.0-16.0); Imm Gran Abs Auto 0.07 X10*3/uL (0.00-0.03); Imm Gran Pct Auto 0.4 % (0.0-0.4); Lymphocytes Absolute Auto 1.9 X10*3/uL (1.2-4.9); Mean Corpuscular HGB Conc 30.5 g/dl (31.0-35.0); Mean Corpuscular Hemoglobin 25.3 pg (27.0-33.0); Mean Corpuscular Volume 83.0 fL (80.0-98.0); NRBC Abs Auto 0.000 X10*3/uL (0.0-0.012); NRBC Pct Auto 0.0 /100WBC (0.0-0.2); Platelet Count 369 X10*3/uL (160-400); Red Blood Count 4.66 X10*6/uL (4.20-5.50); White Blood Count 16.1 X10*3/uL (4.8-10.8)
[2025-03-19 11:11] LABS: Alanine Aminotransferase 26 U/L (0-31); Albumin Level 2.9 g/dL (3.5-5.0); Alkaline Phosphatase 187 U/L (39-117); Anion Gap 12 (12-20); Aspartate Amino Transferase 55 U/L (5-31); Blood Urea Nitrogen 12 mg/dL (9-16); Calcium 8.9 mg/dL (8.4-10.2); Carbon Dioxide 33 mmol/L (22-29); Chloride 103 mmol/L (96-108); Creatinine Clr Calc Pharmacy 46.8; Estimated Glomerular Filt Rate 57; Potassium 4.5 mmol/L (3.3-5.1); Sodium 143 mmol/L (135-145); Total Protein 7.1 g/dL (6.5-8.0)
--- NOTE | 2025-03-19 11:13 | PC.NURSE ---
Pt c/o generalized body pain, mostly knees/feet, headache and right hand/arm. Dr French notified and Tylenol ordered/given. Need UA spec Daughter briefly to bedside then other daughter Verenice (HCP) called and updated
--- OUTSIDE RECORDS SUMMARY | 2025-03-19 12:08 | XMS_ITS | Clinical Summary ---
Author Organization [address] [facility] Address [address] [place] [address] Phone Care Team Providers Care Industrial Gas Fitter Helper Name Role Phone Leonidas Caal MD Primary Care Provider Allergies Active Allergy Reactions Criticality Noted Date Comments Levofloxacin Diarrhea,Rash Medium 04/20/2019 Lisinopril Itching 10/20/2006 Montelukast Unknown 04/20/2019 Penicillins Hives,Rash Medium 09/20/2006 Valsartan-Hydrochlorothiazide Unknown 2018 Medications albuterol 2.5 mg /3 mL (0.083 %) nebulizer solution Take 3 mL (2.5 mg total) by nebulization every 6 (six) hours if needed for wheezing or shortness of breath. 8 Active budesonide (PULMICORT) 0.25 mg/2 mL nebulizer solution Take 2 mL (0.25 mg total) by nebulization 2 (two) times a day. 4 Active Jardiance 10 mg tablet Take 1 tablet (10 mg total) by mouth 1 (one) time each day in the morning. 5 Active glipiZIDE (GLUCOTROL) 5 mg tablet Take 1 tablet (5 mg total) by mouth 2 (two) times a day before meals. 4 Active loratadine (CLARITIN) 10 mg tablet Take 1 tablet (10 mg total) by mouth 1 (one) time each day. 5 Active montelukast (SINGULAIR) 10 mg tablet Take 1 tablet (10 mg total) by mouth at bedtime. 4 Active omeprazole (PriLOSEC) [address] capsule Take 1 capsule (20 mg total) by mouth daily. 5 Active apixaban (ELIQUIS) 5 mg tablet Take 1 tablet (5 mg total) by mouth 2 (two) times a day. 60 each 2 5 Active atorvastatin (LIPITOR) 20 mg tablet Take 1 tablet (20 mg total) by mouth at bedtime. 30 each 2 5 Active metoprolol succinate (TOPROL-XL) 100 mg 24 hr tablet Take 1 tablet (100 mg total) by mouth 1 (one) time each day. Do not crush or chew. 30 each 11 5 11/09/19 26 Active furosemide (LASIX) 40 mg tablet Take 1 tablet (40 mg total) by mouth 1 (one) time each day. 5 Active QUEtiapine (SEROquel) 25 mg tablet Take 0.5 tablets (12.5 mg total) by mouth at bedtime for 14 days. 5 Active Active Problems Problem Noted Date Diagnosed Date Congestive heart failure (CHF) (CMS/HCC V24, CMS /HCC V28) 12/20/2024 Assessment & Plan (12/20/2024 10:06 AM EDT): Echocardiogram from October 2024 showed a normal systolic function with an LVEF of 55-60%. Aside from some mild bilateral lower extremity edema patient appears euvolemic on physical exam. Her weight is down 11 pounds since her last visit and there have been no reports of shortness of breath. No change to current medical therapy, continue with furosemide as prescribed. Atrial fibrillation (CMS/HCC V24, CMS/HCC V28) 0 11/24/2024 Assessment & Plan (12/20/2024 10:10 AM EDT): S/p successful cardioversion. EKG done in the office today shows sinus bradycardia with a rate of 57 bpm. Patient is on Eliquis for [id number] score of 8. Monitor for abnormal bruising and bleeding. Continue Eliquis and metoprolol as prescribed. Assessment & Plan (11/24/2024 2:48 PM EDT): Presented today for hospital follow-up, new onset atrial fibrillation. EKG done in the office today shows atrial fibrillation with rapid ventricular response with a rate of 132 bpm. Patient is symptomatic with significant dyspnea on exertion with minimal activity. Blood pressure 90/58. Patient has been referred to the emergency department for immediate evaluation and treatment. Report called to [facility] ER. Shortness of breath 11/22/2024 Infection due to human metapneumovirus (hMPV) Acute respiratory failure wi th hypoxia (CMS/[facility] V24, CMS/HCC V28) 11/07/2024 Essential hypertension, benign 08/31/2006 Overview (12/20/2024): lotrel in past lisinopril gave couging and itching 09/07 bun cr of 17/0.8 ldl 149 Assessment & Plan (12/20/2024 10:06 AM EDT): Blood pressure is well-controlled in the office today at 114/60. Continue metoprolol as prescribed. Resolved Problems Problem Noted Date Diagnosed Date Resolved Date Acute on chronic heart failu re with preserved ejection fraction (HFpEF) (CMS/HCC V24, CMS/[facility] V28) 11/28/2024 11/30/2024 Assessment & Plan (11/30/2024 10:45 AM EDT): Likely secondary to rapid ventricular response rate. Patient is euvolemic on exam currently. Plan for trial of cardioversion. Continue current Lasix 40mg daily, resume outpatient SGLT-2 inhibitor. Can eval as outpatient for initiation of spironolactone-hold off for now. Atrial fibrillation with RVR (CMS/HCC V24, CMS/HCC V28) 11/24/2024 11/30/2024 Assessment & Plan (11/30/2024 10:44 AM EDT): Continue metoprolol 100mg allone. D/c Dilt and dig. Continue Eliquis 5 bid. Can probably d/c baby aspirin, not sure it is necessary one top of eliquis. Atrial fibrillation with rap id ventricular response ([facility] V24, [facility] V28) 11/01/2024 05/0 12/2024 Encounters Date Type Department Care Team Description 12/20/2024 9:40 AM EDT Office Visit [facility] [address] [place] [address] Brianda Balderas, LEXI Atrial fibrillation, unspecified type ([facility] V24, [facility] V28) (Primary Dx); Essential hypertension, benign; Congestive heart failure, unspecified HF chronicity, unspecified heart failure type ([facility] V24, [facility] V28) from Last 3 Months Surgical History Surgery Date Site/Laterality Comments VARICOSE VEIN SURGERY PROCEDURE: NC LIGJ DIVJ &/EXCJ VARICOSE VEIN CLUSTER 1 LEG TUBAL LIGATION PROCEDURE: HISTORICAL TUBAL LIGATION Medical History Medical History Date Comments Stroke ([facility] V24, [facility] V28) DX:Stroke ([facility]); COMMENT: x 2 Atrial fibrillation with rap id ventricular response ([facility] V24[facility] V28) Dementia ([facility] V24, [facility] V28) Infection due to human metapneumovirus (hMPV) CKD (chronic kidney disease) stage 3, GFR 30-59 ml/min ([facility] V24, [facility] V28) Family History Medical History Relation Name Comments Breast cancer Mother Diabetes Mother Relation Name Status Comments Brother Alive 10,not sure Father some cancer Mother Sister Alive 7,not sure Social History Tobacco Use Types Packs/Day Years Used Date Smoking Tobacco: Never Smokeless Tobacco: Never Alcohol Use Standard Drinks/Week Comments No 0 (1 standard drink = 0.6 oz pur e alcohol) Interpersonal Safety Answer Date Record ed Physical Abuse 11/26/2024 Verbal Abuse 11/26/2024 Comments Unknown Sex and Gender Information Value Date Recorded Sex Assigned at Female 10/31/2024 9:17 PM EDT Legal Sex Female 5:20 AM EST Gender Identity Female 10/31/2024 9:17 PM EDT Sexual Orientation Straight 10/31/2024 9: 17 PM EDT Obstetrics History Last Filed Vital Signs Vital Sign Reading Time Taken Comments Blood Pressure 114/60 12/20/2024 9:21 AM EDT Pulse 57 12/20/2024 9:21 AM EDT Temperature 36.1 C (97 F) 11/30/2024 3:38 PM EDT Respiratory Rate 12 11/30/2024 3:38 PM EDT Oxygen Saturation 96% 12/20/2024 9:21 AM EDT Inhaled Oxygen Concentration - - Weight 81.2 kg (179 lb) 12/20/2024 9:21 AM EDT Height 152.4 cm (5') 12/20/2024 9:21 AM EDT Body Mass Index 34.96 12/20/2024 9:21 AM EDT Plan of Treatment Health Maintenance Due Date Last Done Comments Diabetes: Annual Foot Exam 1955 Diabetes: Annual Retina Eye Exam 1955 RSV Immunization Adult Patients (1 - 1-dose 75+ series) 2019 Zoster Vaccines (2 of 2) 06/20/2020 020, 08/24/2019, 06/01/2011 Cholesterol Screening (Lipid Panel) 06/06/2024 Medicare Annual Wellness Visit 06/06/2024 Osteoporosis Screening (Bone Density Screening) 06/06/2024 Social Influencers of Health Screening 06/06/2024 Depression Screening 07/05/2024 Diabetes: Annual Urine Albumin-Creatinine Ratio (uACR) 11/01/2024 Diabetes: Blood Sugar Control Test (HGBA1C) 12/05/2024 06/06/2024 COVID-19 Vaccine ( season) 2025 07/03/2021, 11/30/2020, 11/09/2020 Influenza Vaccine (#1) 2025 , 06/18/2023, 07/03/2021, Additional history exists DTaP,Tdap,and Td Vaccines (2 - Td or Tdap) 09/23/2025 09/24/2015 Falls Risk Assessment 11/29/2025 11/29/2024 Diabetes: Annual GFR (Glomerular Filtration Rate) 11/30/2025 11/30/2024, 11/27/2024, 11/26/2024, Additional history exists Hypertension/CHF/CAD Annual BMP Blood Test 11/30/2025 11/30/2024, 11/27/2024, 11/26/2024, Additional history exists Pneumococcal Vaccine: 50+ Years Completed 11/10/2022, 04/25/2020, 09/18/2014, Additional history exists HIB Vaccines Aged Out No longer eligi ble based on patient's age to complete this topic HPV Vaccines Aged Out No longer eligi ble based on patient's age to complete this topic Hepatitis A Vaccines Aged Out No long er eligible based on patient's age to complete this topic Hepatitis B Vaccines Aged Out No long er eligible based on patient's age to complete this topic IPV Vaccines Aged Out No longer eligi ble based on patient's age to complete this topic MMR Vaccines Aged Out No longer eligi ble based on patient's age to complete this topic Meningococcal ACWY Vaccine Aged Out N o longer eligible based on patient's age to complete this topic Meningococcal B Vaccine Aged Out No l onger eligible based on patient's age to complete this topic RSV Immunization Patients Under 20 months Aged Out No longer eligible based on patient's age to complete this topic Varicella Vaccines Aged Out No longer eligible based on patient's age to complete this topic Procedures Procedure Name Priority Date/Time Associated Diagnosis Comments ECG 12-LEAD Routine 12/20/2024 10:11 AM EDT Atrial fibrillation, unspecified type (CMS/HCC V24, CMS/HCC V28) BASIC METABOLIC PANEL Routine 11/30/2024 7:34 AM EDT HEMOGLOBIN A1C Routine 06/06/2024 9:37 AM EST Other cerebrovascular disease Type 2 diabetes mellitus without complications (CMS/[facility]) from Last 3 Months or Most Recently Relevant to Health Maintenance Results * ECG 12 lead (12/20/2024 10:11 AM EDT) Ventricular Rate ECG 57 BPM GEMUSE Atrial Rate 57 BPM GEMUSE P-R Interval 158 ms GEMUSE QRS Duration 134 ms GEMUSE Q-T Interval 478 ms GEMUSE QTc 465 ms GEMUSE P Wave [place] 52 degrees GEMUSE R [place] -43 degrees GEMUSE T [place] 19 degrees GEMUSE ECG Interpretation Sinus bradycardia Left anterior fascicular block Right bundle branch block When compared with ECG of 29-MAY-2025 10:22, No significant change was found Confirmed by MURRAY VILLAREAL ([id number]) on 12/20/2024 1:04:11 PM GEMUSE 12/20/2024 9:32 AM EDT 12/20/2024 1:04 PM EDT Brianda Balderas SPA ASSISTANT MANAGER ECG ORDERABLES Edited Result - Final GEMUSE * (ABNORMAL) Basic metabolic panel (11/30/2024 7:34 AM EDT) Sodium 144 133 - 145 mmol/L LAB CHEMISTRY METHOD 11/30/2024 9:36 AM [facility] Potassium 3.8 3.5 - 5.5 mmol/L LAB CHEMISTRY METHOD 11/30/2024 9:36 AM [facility] Chloride 101 96 - 110 mmol/L LAB CHEMISTRY METHOD 11/30/2024 9:36 AM [facility] CO2 36(H) 21 - 32 mmol/L LAB CHEMISTRY METHOD 11/30/2024 9:36 AM [facility] Anion Gap 7 3 - 11 LAB CHEMISTRY METHOD 11/30/2024 9:36 AM [facility] Glucose 167(H) 70 - 100 mg/dL LAB CHEMISTRY METHOD 11/30/2024 9:36 AM [facility] BUN 29(H) 5 - 25 mg/dL LAB CHEMISTRY METHOD 11/30/2024 9:36 AM [facility] Creatinine 1.26(H) 0.50 - 1.10 mg/dL LAB CHEMISTRY METHOD 11/30/2024 9:36 AM [facility] eGFR 43(L) >=60 mL/min/1. 73m2 LAB CHEMISTRY METHOD 11/30/2024 9:36 AM [facility] Comment:Calculation based on the Chronic Kidney Disease Epidemiology Collaboration (CKD-EPI) equation refit without adjustment for race. BUN/Creatinine Ratio 23.0 LAB CHEMISTRY METHOD 11/30/2024 9:36 AM EDT [facility] Calcium 8.2(L) 8.5 - 10.5 mg/dL LAB CHEMISTRY METHOD 11/30/2024 9:36 AM EDT [facility] Blood Venous blood specimen / Unknown Venipuncture / Unknown 11/30/2024 7:34 AM EDT 11/30/2024 8:19 AM EDT us Deepthi Serrano MD LAB BLOOD ORDERABLES Final Res ult Performing Organization Address [facility]/ZIP Co de Phone Number [facility] [address] [place] [address], [place] [phone] * (ABNORMAL) Hemoglobin A1c (06/06/2024 9:37 AM EST) Hemoglobin A1C 6.7(H) <6.5 % LAB CHEMISTRY METHOD 06/06/2024 9:13 PM EST [facility] Mean Bld Glu Estim. 146 mg/dL LAB CHEMISTRY METHOD 06/06/2024 9:13 PM EST [facility] Blood Venous blood specimen / Unknown Venipuncture / Unknown 06/06/2024 9:37 AM EST 06/06/2024 12:03 PM EST us Haja Thompson MD LAB BLOOD ORDERABLES Final Resul t Performing Organization Address City/[facility]/ZIP Co de Phone Number [facility] [address] [place] [address], [place] [phone] from Last 3 Months or Most Recently Relevant to Health Maintenance Insurance [facility] [employer] Member Subscriber Plan / Payer (Ef fective 2024-Present) Name:Tammy Gardner Relation to Subscriber:Self Name:Tammy Gardner Payer ID:[id number] Group ID:Not on file Type:Not on file Address: [place] [address] [address] [id number] Advance Directives Documents on File Type Date Recorded Patient Steward/Stewardess Banquet Expl anation Advance Directives and Living Will 11/02/2024 12:02 PM Verenice Oneil Health Care Proxy * Full Code - Default (Latest Code Status on File) Date Activated Date Inactivated Comments 11/24/2024 8:10 PM 11/30/2024 7:31 PM This is orde r is used when code status has not been discussed with the patient, or code status is otherwise unknown/unconfirmed To update the patient's code status, place a code status order. Do not modify or discontinue any currently active code status orders. * Full Code - Default Date Activated Date Inactivated Comments 11/01/2024 6:13 AM 11/07/2024 8:35 PM This is order is used when code status has not been discussed with the patient, or code status is otherwise unknown/unconfirmed To update the patient's code status, place a code status order. Do not modify or discontinue any currently active code status orders. Healthcare Agents on File Name Relationship Healthcare Agent Relationshi p Communication Verenice Josr Veritovernell Daughter Health Care Agent Care Teams Industrial Gas Fitter Helper Relationship Specialty Start Date End Date Leonidas Caal MD [address] [place] [address] PCP - General Internal Medicine 10/31/24
--- OUTSIDE RECORDS SUMMARY | 2025-03-19 12:08 | XMS_ITS | Encounter Summary ---
Author Organization [facility] Address [address] [place] [address] Care Team Providers Care Loading Checker Name Role Phone Leonidas Caal MD Primary Care Provider Encounter Details Date Type Department Care Team (Latest Contact Info) Description 06/06/2024 Lab Requisition [facility] - Main Lab [address] [facility] [place] [address] Haja Thompson MD [address] [place] [address] Other cerebrovascular disease; Type 2 diabetes mellitus without complications (CMS/HCC V24, CMS/HCC V28) Social History Tobacco Use Types Packs/Day Years Used Date Smoking Tobacco: Never Smokeless Tobacco: Never Alcohol Use Standard Drinks/Week Comments No 0 (1 standard drink = 0.6 oz pur e alcohol) Comments Unknown Sex and Gender Information Value Date Recorded Sex Assigned at Female 10/31/2024 9:17 PM EDT Legal Sex Female 5:20 AM EST Gender Identity Female 10/31/2024 9:17 PM EDT Sexual Orientation Straight 10/31/2024 9: 17 PM EDT documented as of this encounter Plan of Treatment Not on file documented as of this encounter Procedures Procedure Name Priority Date/Time Associated Diagnosis Comments COMPLETE BLOOD COUNT Routine 06/06/2024 9:37 AM EST Other cerebrovascular disease Type 2 diabetes mellitus without complications (CMS/[facility]) HEMOGLOBIN A1C Routine 06/06/2024 9:37 AM EST Other cerebrovascular disease Type 2 diabetes mellitus without complications (CMS/HCC) BASIC METABOLIC PANEL Routine 06/06/2024 9:37 AM EST Other cerebrovascular disease Type 2 diabetes mellitus without complications (CMS/HCC) documented in this encounter Results * (ABNORMAL) Hemoglobin A1c (06/06/2024 9:37 AM EST) Hemoglobin A1C 6.7(H) <6.5 % LAB CHEMISTRY METHOD 06/06/2024 9:[address] [facility] Mean Bld Glu Estim. 146 mg/dL LAB CHEMISTRY METHOD 06/06/2024 9:13 PM [facility] Blood Venous blood specimen / Unknown Venipuncture / Unknown 06/06/2024 9:37 AM EST 06/06/2024 12:03 PM EST Haja Thompson MD LAB BLOOD ORDERABLES Final Resul t [facility] [address] [place] [address], * (ABNORMAL) Basic metabolic panel (06/06/2024 9:37 AM EST) Sodium 140 133 - 145 mmol/L LAB CHEMISTRY METHOD 06/06/2024 1:19 PM [facility] Potassium 5.0 3.5 - 5.5 mmol/L LAB CHEMISTRY METHOD 06/06/2024 1:19 PM [facility] Chloride 105 96 - 110 mmol/L LAB CHEMISTRY METHOD 06/06/2024 1:19 PM [facility] CO2 29 21 - 32 mmol/L LAB CHEMISTRY METHOD 06/06/2024 1:19 PM [facility] Anion Gap 6 3 - 11 LAB CHEMISTRY METHOD 06/06/2024 1:19 PM [facility] Glucose 173(H) 70 - 100 mg/dL LAB CHEMISTRY METHOD 06/06/2024 1:19 PM [facility] BUN 34(H) 5 - 25 mg/dL LAB CHEMISTRY METHOD 06/06/2024 1:19 PM [facility] Creatinine 1.12(H) 0.50 - 1.10 mg/dL LAB CHEMISTRY METHOD 06/06/2024 1:19 PM [facility] eGFR 50(L) >=60 mL/min/1. 73m2 LAB CHEMISTRY METHOD 06/06/2024 1:19 PM [facility] Comment:Calculation based on the Chronic Kidney Disease Epidemiology Collaboration (CKD-EPI) equation refit without adjustment for race. BUN/Creatinine Ratio 30.4 LAB CHEMISTRY METHOD 06/06/2024 1:19 PM [facility] Calcium 9.5 8.5 - 10.5 mg/dL LAB CHEMISTRY METHOD 06/06/2024 1:19 PM [facility] Blood Venous blood specimen / Unknown Venipuncture / Unknown 06/06/2024 9:37 AM EST 06/06/2024 12:03 PM EST Haja Thompson MD LAB BLOOD ORDERABLES Final Resul t [facility] [address] [place] [address], * (ABNORMAL) Complete blood count (06/06/2024 9:37 AM EST) WBC 10.5 4.8 - 10.8 K/mcL LAB HEMETOLOGY METHOD 06/06/2024 12:36 PM [facility] RBC 5.10(H) 3.80 - 4.80 M/mcL LAB HEMETOLOGY METHOD 06/06/2024 12:36 PM [facility] Hemoglobin 12.5 11.5 - 16.0 g/dL LAB HEMETOLOGY METHOD 06/06/2024 12:36 PM [facility] Hematocrit 42.4 35.0 - 47.0 % LAB HEMETOLOGY METHOD 06/06/2024 12:36 PM [facility] MCV 83.3 79.0 - 98.0 FL LAB HEMETOLOGY METHOD 06/06/2024 12:36 PM [facility] MCH 24.6(L) 27.0 - 32.0 pcg LAB HEMETOLOGY METHOD 06/06/2024 12:36 PM [facility] MCHC 29.5(L) 32.0 - 37.0 g/dL LAB HEMETOLOGY METHOD 06/06/2024 12:36 PM [facility] RDW 17.3(H) 11.0 - 15.0 % LAB HEMETOLOGY METHOD 06/06/2024 12:36 PM [facility] Platelets 415(H) 130 - 400 K/mcL LAB HEMETOLOGY METHOD 06/06/2024 12:36 PM [facility] MPV 11.7(H) 7.0 - 11.0 FL LAB HEMETOLOGY METHOD 06/06/2024 12:36 PM [facility] NRBC 0.0 <1.0 % LAB HEMETOLOGY METHOD 06/06/2024 12:36 PM [facility] NRBC Absolute 0.00 <0.10 K/mcL LAB HEMETOLOGY METHOD 06/06/2024 12:36 PM [facility] Blood Venous blood specimen / Unknown Venipuncture / Unknown 06/06/2024 9:37 AM EST 06/06/2024 12:03 PM EST us Haja Thompson MD LAB BLOOD ORDERABLES Final Resul t [facility] [address] [place] [address], documented in this encounter Visit Diagnoses Diagnosis Other cerebrovascular disease Type 2 diabetes mellitus without complications ([facility] V24, [facility] V28) documented in this encounter Additional Health Concerns Infection Onset Date Last Indicated Resolved Time Respiratory Rule-Out Comment:Order canceled 10/31/2024 10/31/2024 11/01/2024 4:23 P M EDT COVID-19 Rule-Out Comment:Cancelled testing 10/31/2024 10/31/2024 11/01/2024 4:2 3 PM EDT Respiratory Rule-Out 11/01/2024 11/01/2024 025 7:34 PM EDT COVID-19 Rule-Out 11/01/2024 11/01/2024 11/01/2024 7:34 PM EDT Human Metapneumovirus Comment:completed 11/01/2024 11/01/2024 11/28/2024 11:46 AM EDT Respiratory Rule-Out 11/26/2024 11/26/2024 025 12:40 PM EDT COVID-19 Rule-Out 11/26/2024 11/26/2024 11/26/2024 12:40 PM EDT documented as of this encounter Care Teams Loading Checker Relationship Specialty Start Date End Date Leonidas Caal MD [address] [place] [address] PCP - General Internal Medicine 10/31/24 documented as of this encounter
--- OUTSIDE RECORDS SUMMARY | 2025-03-19 12:08 | XMS_ITS | Encounter Summary ---
Author Organization [facility] Address [address] [place] [address] Care Team Providers Care Green Feed Attendant Name Role Phone Leonidas Caal MD Primary Care Provider Encounter Details Date Type Department Care Team (Late st Contact Info) Description 06/10/2024 Lab Requisition [facility] - Main Lab [address] [facility] [place] [address] Haja Thompson MD [address] [place] [address] Cerebral infarction, unspecified (CMS/HCC V24, CMS/HCC V28) Social History Tobacco [...] on file documented as of this encounter Visit Diagnoses Diagnosis Cerebral infarction, unspecified (CMS/HCC V24, CMS/HCC V28) documented in this encounter Additional Health [...] documented as of this encounter Care Teams Green Feed Attendant Relationship Specialty Start Date End Date Leonidas Caal MD [address] [place] [address] PCP - General Internal Medicine 10/31/24 documented as of this encounter
--- NOTE | 2025-03-19 12:14 | PC.NURSE ---
Repeat POC 60, orange juice given and will attempt sandwich. Pt needs encouragement with every task to be completed, d/t pain, appears to be no change s/p Tylenol given earlier, Dr French aware. Inquired about fluids, will continue to infuse at this time. Needs UA, pt resistive and not opening legs ?d/t pain, Dr French updated, okay to hold straight cath at this time
[2025-03-19] MEDS: oxyCODONE HCl Immed Release 5 MG TABLET PO (12:35)
--- NOTE | 2025-03-19 13:18 | PC.NURSE ---
Call from [facility], updated on plan thus far. States pt has chronic pain issues, difficult to control pain at facility but states was mostly controlled over past two weeks but became worse again this AM. POC at facility was 56 prior to transport here.
[2025-03-19 13:39] LABS: Glucose, Whole Blood 96 mg/dL (60-115)
[2025-03-19 13:39] LABS: Glucose, Whole Blood 60 mg/dL (60-115)
[2025-03-19 15:15] LABS: Glucose, Whole Blood 88 mg/dL (60-115)
[2025-03-19 16:25] LABS: Appearance Urine Clear; Glucose Urine UA >=1000 mg/dL (Negative); PH 7.0 (5.0-9.0); Specific Gravity - Urine 1.020 (1.005-1.025); UMIC TRIGGER UACC YES
[2025-03-19] MEDS: Octreotide Acetate 100 MCG/ML AMPUL 50 MCG SUBCUT (16:25)
--- NOTE | 2025-03-19 17:00 | PC.NURSE ---
Addendum entered by Anjali Recinos RN 03/19/25 17:33: plan for chest xray Original Note: pt noted with low sat 77% on room air while asleep, placed on 3lpm via nv, sat 98% at this time. Dr Marcos aware
[2025-03-19] MEDS: Dextrose 5 % and 0.45 % NaCl 1,000 ML 80 ML IVCONT (17:51)
--- NOTE | 2025-03-19 18:27 | PM.IMHP ---
History of Present Illness Date of Service: 03/19/25 Chief Complaint: agitation, low glucose 79F PMH DM, HTN, pafib, copd, alzheimers dementia, hld, senior care resident sent in for agitaiton, elevated bp, hypoglycemia. Patient has chronic pain due to osteoarthritis. Appeared to be more agitated than usual. Blood pressures were checked and were elevated to over 200. Also noted to have glucose of 57 so sent to ED. in ED blood pressure continued to be elevated to over 200, time of admission decreased to 163/68. Was given octreotide and started on D5 half NS. Denies abdominal pain, has no appetite. Review of Systems Review of Systems: Yes Unobtainable due to mental status [facility] Medical History (Updated 03/19/25 @ 18:30 by Fernando Wayne MD) Dementia Abdominal pain Social History Household Members: Caregiver Housing: Assisted Living Facility Do you presently have visiting nurse or other home services: Yes (SNF per report.) Patient Tobacco Use Status: Never used Tobacco Smoked in Last 30 Days: No Second Hand Smoke Exposure: No Use of substances other than those prescribed or required for medical reasons: No Advance Directives: Yes Advance Directives Information Provided: No Advance Directives on File: No service: No Meds Allergies Allergy/AdvReac Type Severity Reaction Status Date / Time levofloxacin (From LEVAQUIN) Allergy Unknown UNKNOWN Verified 12/23/24 00:54 montelukast (From SINGULAIR) Allergy Unknown UNKNOWN Verified 12/23/24 00:54 penicillin G Allergy Unknown Unknown Verified 12/23/24 00:54 Penicillins (PCN) Allergy Unknown UNKNOWN Verified 12/23/24 00:54 valsartan (From DIOVAN) Allergy Unknown UNKNOWN Verified 12/23/24 00:54 hydrochlorothiazide Allergy Unknown Verified 03/19/25 09:23 lisinopril Allergy Unknown Verified 03/19/25 09:23 Active Medications: Current Medications Acetaminophen (Acetaminophen 325 Mg Tablet) 650 mg PO Q6H PRN PRN Reason: Pain, Mild 1-3,fever,headache Calcium Carbonate (Calcium Carbonate 750 Mg Tab.Chew) 750 mg PO Q4H PRN PRN Reason: Heartburn Dextrose/Sodium Chloride (D51/2ns) 1,000 mls @ 80 mls/hr IVCONT .[id number] [facility] Last Admin: 03/19/25 17:51 Dose: 80 mls/hr Magnesium Hydroxide (Milk Of Magnesia 30 Ml Oral.Susp) 30 ml PO DAILY PRN PRN Reason: Constipation Melatonin (Melatonin 3 Mg Tablet) 6 mg PO BEDTIME PRN PRN Reason: Insomnia Sodium Chloride (0.9 % Sodium Chloride Flush 3 Ml Syringe) 3 ml IVFLUSH QSHIFT [facility] Home Medications ?Medication ?Instructions ?Recorded ?Confirmed ?Last Taken ?Type acetaminophen 325 mg tablet 650 mg PO Q4H PRN Fever Or Pain 12/23/24 12/23/24 12/22/24 History acetaminophen 650 mg rectal 650 mg KS Q4H PRN pain or fever 12/23/24 12/23/24 Unknown History suppository albuterol sulfate 2.5 mg/3 mL 2.5 mg inhalation Q6H PRN 12/23/24 12/23/24 Unknown History (0.083 %) solution for nebulization wheezing/SOB apixaban 5 mg tablet (Eliquis) 5 mg PO BID 12/23/24 12/23/24 12/22/24 History atorvastatin 20 mg tablet 20 mg PO BEDTIME 12/23/24 12/23/24 12/22/24 History bisacodyl 10 mg rectal suppository 10 mg KS DAILY PRN Constipation 12/23/24 12/23/24 Unknown History budesonide 0.25 mg/2 mL suspension 0.25 mg inhalation BID 12/23/24 12/23/24 12/22/24 History for nebulization clotrimazole 1 % topical cream 1 appl topical DAILY 12/23/24 12/23/24 12/22/24 History empagliflozin 10 mg tablet 10 mg PO DAILY 12/23/24 12/23/24 12/22/24 History (Jardiance) furosemide 20 mg tablet 20 mg PO DAILY 12/23/24 12/23/24 12/22/24 History glipizide 5 mg tablet 5 mg PO BIDAC 12/23/24 12/23/24 12/22/24 History loratadine 10 mg tablet 10 mg PO DAILY 12/23/24 12/23/24 12/22/24 History magnesium hydroxide 400 mg/5 mL 30 ml PO DAILY PRN Constipation 12/23/24 12/23/24 Unknown History oral suspension (Milk of Magnesia) melatonin 3 mg tablet 6 mg PO BEDTIME 12/23/24 12/23/24 12/22/24 History metoprolol succinate 100 mg 100 mg PO DAILY 12/23/24 12/23/24 12/22/24 History tablet,extended release 24 hr montelukast 10 mg tablet 10 mg PO BEDTIME 12/23/24 12/23/24 12/22/24 History omeprazole 20 mg capsule,delayed 20 mg PO DAILY 12/23/24 12/23/24 12/22/24 History release oxycodone 10 mg tablet,crush 10 mg PO BID@0900,2100 12/23/24 12/23/24 12/22/24 History resistant,extended release 12 hr oxycodone 5 mg tablet 5 mg PO DAILY@1200 12/23/24 12/23/24 12/22/24 History polyethylene glycol 3350 17 gram 17 g PO DAILY 12/23/24 12/23/24 12/22/24 History oral powder packet (Miralax) sodium phosphates 19 gram-7 118 ml KS DAILY PRN Constipation 12/23/24 12/23/24 Unknown History gram/118 mL enema (Fleet Enema) Physical Exam Vital Signs and Narrative: Vital Signs: Last Vital Signs Temp 98.9 F 03/19/25 16:24 Pulse 94 03/19/25 16:24 Resp 18 03/19/25 16:24 BP 163/68 H 03/19/25 16:24 Pulse Ox 96 03/19/25 16:24 O2 Del Method Room Air 03/19/25 16:24 BMI result Body Mass Index 33.1 Alert oriented to person and place, poor insight, no acute distress, abdomen soft and nontender to deep palpation, nondistended Results Labs 03/19/25 10:46 03/19/25 10:46 Labs: Laboratory Results - last 24 hr 03/19/25 03/19/25 03/19/25 09:23 10:46 12:06 MCV 83.0 MCH 25.3 L MCHC 30.5 L RDW 15.8 Plt Count 369 D MPV 10.0 Immature Gran % (Auto) 0.4 Neut % (Auto) 81.4 H Lymph % (Auto) 11.7 L [place] % (Auto) 6.0 Eos % (Auto) 0.1 Baso % (Auto) 0.4 Lymph # (Auto) 1.9 [place] # (Auto) 1.0 Eos # (Auto) 0.0 Baso # (Auto) 0.1 Abs Immat Gran (auto) 0.07 H Absolute Neuts (auto) 13.1 H Absolute Nucleated RBC 0.000 Nucleated RBC % (auto) 0.0 Anion Gap 12 Estim Creat Clear Calc 46.8 Estimated GFR 57 POC Glucose 84 60 Random Glucose 90 Calcium 8.9 Total Bilirubin 0.6 AST 55 H ALT 26 Alkaline Phosphatase 187 H Total Protein 7.1 Albumin 2.9 L Urine Color Urine Appearance Urine pH Ur Specific [place] Urine Protein Urine Glucose (UA) Urine Ketones Urine Blood Urine Nitrite Ur Leukocyte Esterase Urine RBC Urine WBC Ur Squamous Epith Cells Urine Bacteria Hyaline Casts 03/19/25 03/19/25 03/19/25 13:35 15:11 16:18 MCV MCH MCHC RDW Plt Count MPV Immature Gran % (Auto) Neut % (Auto) Lymph % (Auto) [place] % (Auto) Eos % (Auto) Baso % (Auto) Lymph # (Auto) [place] # (Auto) Eos # (Auto) Baso # (Auto) Abs Immat Gran (auto) Absolute Neuts (auto) Absolute Nucleated RBC Nucleated RBC % (auto) Anion Gap Estim Creat Clear Calc Estimated GFR POC Glucose 96 88 Random Glucose Calcium Total Bilirubin AST ALT Alkaline Phosphatase Total Protein Albumin Urine Color Yellow Urine Appearance Clear Urine pH 7.0 Ur Specific [place] 1.020 Urine Protein 30 (1+) H Urine Glucose (UA) >=1000 H Urine Ketones Negative Urine Blood Negative Urine Nitrite Negative Ur Leukocyte Esterase Negative Urine RBC 0-2 Urine WBC 0-5 Ur Squamous Epith Cells 3-5 Urine Bacteria None Seen Hyaline Casts 0-2 Assessment and Plan (1) Hypoglycemia: Status: Acute Plan 79F PMH DM, HTN, pafib, copd, alzheimers dementia, hld, senior care resident sent in for agitaiton, elevated bp, hypoglycemia Agitation elevated blood pressure Likely related to chronic pain Continue Toprol add amlodipine Diabetes with hypoglycemia Likely related to ongoing sulfonylurea use despite worsening appetite Hold diabetes meds, monitor glucose Check CT abdomen, previously had cholelithiasis and pancreatitis in December 2024 Alzheimer dementia Stable Paroxysmal AFib Metoprolol, Eliquis DVT prophylaxis-Eliquis DNR/DNI Quality Stroke Does the patient have a stroke diagnosis?: No VTE Prior VTE?: No VTE Risk Level:: Medical - moderate - high VTE Device Contraindication: Treatment Not Indicated VTE Drug Contraindication: N/A - Med Ordered
[2025-03-19 18:29] LABS: NT Pro B Type Natriuretic Pept 1966.8 pg/mL (<300)
[2025-03-19 18:54] LABS: Glucose, Whole Blood 115 mg/dL (60-115)
[2025-03-19 19:41] LABS: Venous Blood Gas Refer to POC result
[2025-03-19 19:42] LABS: VBG HCO3 32 mmol/L (22-26); VBG O2 % Saturation 72.0 %
[2025-03-19 19:44] LABS: COVID-19 Test Negative (Negative); IDNOW Serial# 6674DD1D
[2025-03-19 19:48] LABS: IDNOW Serial# 08D9AD1C; Influenza B2 Negative (Negative)
--- NOTE | 2025-03-19 21:03 | PHA.MEDREC ---
Pharmacy Consult ? Medication Reconciliation Pharmacy has completed the medication reconciliation using med list from [facility]. Also called and spoke to nurse Henrietta on 3rd floor of [facility] who confirmed pt is taking oxycodone 5 mg q8h prn, oxycodone 5 mg daily@1700 and oxycontin 20 mg bid.
[2025-03-19 22:54] LABS: Glucose, Whole Blood 249 mg/dL (60-115)
[2025-03-19] MEDS: oxyCODONE HCl ER 10 MG TAB.ER.12H 20 MG PO (22:54)
[2025-03-19] MEDS: 0.9 % Sodium Chloride Flush 3 ML SYRINGE IVFLUSH (23:27)
[2025-03-20] VITALS (8 sets, daily range): BP systolic 103–163; BP diastolic 61–98; PULSE 79–94; RESP 16–20; TEMP 36–36.6; O2SAT 92–98; BMI 33.0
[2025-03-20 03:14] LABS: Glucose, Whole Blood 232 mg/dL (60-115)
[2025-03-20 06:02] LABS: Glucose, Whole Blood 226 mg/dL (60-115)
--- NOTE | 2025-03-20 06:24 | PC.NURSE ---
0600- Blood sugars were checked as ordered since her admission,; this am 232 and then 226 at 0600. Reported to Hospitalist on duty and [facility]
[2025-03-20 06:53] LABS: Anion Gap 16 (12-20); Blood Urea Nitrogen 11 mg/dL (9-16); Calcium 9.4 mg/dL (8.4-10.2); Carbon Dioxide 25 mmol/L (22-29); Chloride 105 mmol/L (96-108); Creatinine Clr Calc Pharmacy 49.9; Estimated Glomerular Filt Rate > 60; Potassium 4.1 mmol/L (3.3-5.1); Sodium 142 mmol/L (135-145)
[2025-03-20 07:21] LABS: Glucose, Whole Blood 249 mg/dL (60-115)
[2025-03-20 07:25] LABS: Hemoglobin A1C 153.2657 umol/L; Total Hemoglobin (HGBA1C) 3115.1665 umol/L
[2025-03-20 07:28] LABS: Hematocrit 42.8 % (37.0-47.0); Hemoglobin 13.3 g/dl (12.0-16.0); Mean Corpuscular HGB Conc 31.1 g/dl (31.0-35.0); Mean Corpuscular Hemoglobin 25.9 pg (27.0-33.0); Mean Corpuscular Volume 83.4 fL (80.0-98.0); NRBC Abs Auto 0.000 X10*3/uL (0.0-0.012); NRBC Pct Auto 0.0 /100WBC (0.0-0.2); Platelet Count 355 X10*3/uL (160-400); Red Blood Count 5.13 X10*6/uL (4.20-5.50); White Blood Count 10.1 X10*3/uL (4.8-10.8)
[2025-03-20] MEDS: Metoprolol Succinate ER 100 MG TAB.ER.24H PO (07:29)
[2025-03-20] MEDS: oxyCODONE HCl ER 10 MG TAB.ER.12H 20 MG PO ×2 (07:29→20:59)
[2025-03-20] MEDS: 0.9 % Sodium Chloride Flush 3 ML SYRINGE IVFLUSH ×2 (07:30→16:51)
--- NOTE | 2025-03-20 08:36 | P.PNIM_ITS ---
Subjective Subjective Date of Service: 03/20/25 Interval History: denies complaints Physical Exam 2 Exam: Exam: Alert oriented to person and place, poor insight, no acute distress, abdomen soft and nontender to deep palpation, nondistended Vital Signs: Vital Signs: Last Vital Signs Temp 97.1 F 03/20/25 07:05 Pulse 90 03/20/25 07:05 Resp 18 03/20/25 07:05 BP 138/78 03/20/25 07:05 Pulse Ox 92 03/20/25 07:05 O2 Del Method Room Air 03/20/25 07:05 O2 Flow Rate 2 03/20/25 03:02 BMI result Body Mass Index 33.0 Objective Data Active Medications Acetaminophen (Acetaminophen 325 Mg Tablet) 650 mg PO Q6H PRN PRN Reason: Pain, Mild 1-3,fever,headache Amlodipine Besylate (Amlodipine Besylate 10 Mg Tablet) 10 mg PO BEDTIME [facility]; Protocol Last Admin: 03/19/25 20:55 Dose: 10 mg Documented By: KRISTOFER Apixaban (Apixaban 5 Mg Tablet) 5 mg PO BID [facility] Last Admin: 03/20/25 07:28 Dose: 5 mg Documented By: JANI Atorvastatin Calcium (Atorvastatin Calcium 20 Mg Tablet) 20 mg PO BEDTIME FLASH Baclofen (Baclofen 10 Mg Tablet) 5 mg PO Q8H PRN PRN Reason: Muscle Spasm Bisacodyl (Bisacodyl 10 Mg Supp.Rect) 10 mg HI DAILY PRN PRN Reason: Constipation Calcium Carbonate (Calcium Carbonate 750 Mg Tab.Chew) 750 mg PO Q4H PRN PRN Reason: Heartburn Cyclobenzaprine HCl (Cyclobenzaprine Hcl 5 Mg Tablet) 5 mg PO BID [facility] Last Admin: 03/20/25 07:28 Dose: 5 mg Documented By: JANI Dextrose (Dextrose 50 % 25 Gm/50 Ml Syringe) 25 gm IVPUSH Q15M PRN; Protocol PRN Reason: per Hypoglycemia Standing Ord. Duloxetine HCl (Duloxetine Hcl 30 Mg Capsule.Dr) 30 mg PO DAILY [facility] Last Admin: 03/20/25 07:29 Dose: 30 mg Documented By: JANI Furosemide (Furosemide 20 Mg Tablet) 20 mg PO DAILY [facility]; Protocol Last Admin: 03/20/25 07:29 Dose: 20 mg Documented By: JANI Glucose (Glucose Gel 15 Gm Gel..Gram.) 15 gm PO Q15M PRN; Protocol PRN Reason: per Hypoglycemia Standing Ord. Insulin Human Lispro (Insulin Lispro 100 Unit/Ml 3 Ml Vial) 0 unit SUBCUT QIDACHS [facility]; Protocol Last Admin: 03/20/25 07:39 Dose: 4 unit Documented By: JANI Loratadine (Loratadine 10 Mg Tablet) 10 mg PO DAILY [facility] Last Admin: 03/20/25 07:29 Dose: 10 mg Documented By: JANI Magnesium Hydroxide (Milk Of Magnesia 30 Ml Oral.Susp) 30 ml PO DAILY PRN PRN Reason: Constipation Magnesium Hydroxide (Milk Of Magnesia 30 Ml Oral.Susp) 30 ml PO DAILY PRN PRN Reason: Constipation Melatonin (Melatonin 3 Mg Tablet) 6 mg PO BEDTIME PRN PRN Reason: Insomnia Metoprolol Succinate (Metoprolol Succinate Er 100 Mg Tab.Er.24h) 100 mg PO DAILY [facility]; Protocol Last Admin: 03/20/25 07:29 Dose: 100 mg Documented By: JANI Montelukast Sodium (Montelukast Sodium 10 Mg Tablet) 10 mg PO BEDTIME [facility] Last Admin: 03/19/25 22:54 Dose: 10 mg Documented By: RAMON Multivitamins/Vitamin C (Multivitamin Tablet) 1 tab PO DAILY [facility] Last Admin: 03/20/25 07:29 Dose: 1 tab Documented By: JANI Naloxone HCl (Naloxone Hcl Nasal 4 Mg [place]) 4 mg NOSTRILALT Q3M PRN PRN Reason: Opioid Overdose Omeprazole (Omeprazole 20 Mg Capsule.Dr) 20 mg PO DAILY@0630 [facility] Last Admin: 03/20/25 05:57 Dose: Not Given Documented By: TIMUR Non-Admin Reason: Patient Refused Oxycodone HCl (Oxycodone Hcl Immed Release 5 Mg Tablet) 5 mg PO DAILY@1700 [facility] Oxycodone HCl (Oxycodone Hcl Immed Release 5 Mg Tablet) 5 mg PO Q8H PRN PRN Reason: Pain, Severe (Pain Scale 7-10) Oxycodone HCl (Oxycodone Hcl Er 10 Mg Tab.Er.12h) 20 mg PO BID@0900,2100 [facility] Last Admin: 03/20/25 07:29 Dose: 20 mg Documented By: JANI Polyethylene Glycol (Polyethylene Glycol 3350 17 Gm Powd.Pack) 17 gm PO DAILY [facility] Last Admin: 03/20/25 07:29 Dose: 17 gm Documented By: JANI Quetiapine Fumarate (Quetiapine Fumarate 25 Mg Tablet) 25 mg PO BEDTIME [facility] Sodium Biphosphate/Sodium Phosphate (Sodium Phosphate,[place]-Dibasic 133 Ml Enema) 118 ml HI DAILY PRN PRN Reason: Constipation Sodium Chloride (0.9 % Sodium Chloride Flush 3 Ml Syringe) 3 ml IVFLUSH QSHIFT FLASH Last Admin: 03/20/25 07:30 Dose: 3 ml Documented By: JANI Labs 03/20/25 06:14 03/20/25 06:14 Labs: Laboratory Results - last 24 hr 03/19/25 03/19/25 03/19/25 09:23 10:46 12:06 MCV 83.0 MCH 25.3 L MCHC 30.5 L RDW 15.8 Plt Count 369 D MPV 10.0 Immature Gran % (Auto) 0.4 Neut % (Auto) 81.4 H Lymph % (Auto) 11.7 L [place] % (Auto) 6.0 Eos % (Auto) 0.1 Baso % (Auto) 0.4 Lymph # (Auto) 1.9 [place] # (Auto) 1.0 Eos # (Auto) 0.0 Baso # (Auto) 0.1 Abs Immat Gran (auto) 0.07 H Absolute Neuts (auto) 13.1 H Absolute Nucleated RBC 0.000 Nucleated RBC % (auto) 0.0 VBG pH VBG pCO2 VBG pO2 VBG HCO3 VBG O2 Saturation VBG Base Excess Anion Gap 12 Estim Creat Clear Calc 46.8 Estimated GFR 57 POC Glucose 84 60 Random Glucose 90 Estimat Average Glucose 146 Hemoglobin A1c % 6.7 H Calcium 8.9 Total Bilirubin 0.6 AST 55 H ALT 26 Alkaline Phosphatase 187 H NT-Pro-B Natriuret Pep 1966.8 H Total Protein 7.1 Albumin 2.9 L Urine Color Urine Appearance Urine pH Ur Specific [place] Urine Protein Urine Glucose (UA) Urine Ketones Urine Blood Urine Nitrite Ur Leukocyte Esterase Urine RBC Urine WBC Ur Squamous Epith Cells Urine Bacteria Hyaline Casts COVID-19 ([facility]LEY) COVID-19 Clin Com Influenza Type A (VJ) Influenza Type B (VJ) Influenza A & B Note 03/19/25 03/19/25 03/19/25 13:35 15:11 16:18 MCV MCH MCHC RDW Plt Count MPV Immature Gran % (Auto) Neut % (Auto) Lymph % (Auto) [place] % (Auto) Eos % (Auto) Baso % (Auto) Lymph # (Auto) [place] # (Auto) Eos # (Auto) Baso # (Auto) Abs Immat Gran (auto) Absolute Neuts (auto) Absolute Nucleated RBC Nucleated RBC % (auto) VBG pH VBG pCO2 VBG pO2 VBG HCO3 VBG O2 Saturation VBG Base Excess Anion Gap Estim Creat Clear Calc Estimated GFR POC Glucose 96 88 Random Glucose Estimat Average Glucose Hemoglobin A1c % Calcium Total Bilirubin AST ALT Alkaline Phosphatase NT-Pro-B Natriuret Pep Total Protein Albumin Urine Color Yellow Urine Appearance Clear Urine pH 7.0 Ur Specific [place] 1.020 Urine Protein 30 (1+) H Urine Glucose (UA) >=1000 H Urine Ketones Negative Urine Blood Negative Urine Nitrite Negative Ur Leukocyte Esterase Negative Urine RBC 0-2 Urine WBC 0-5 Ur Squamous Epith Cells 3-5 Urine Bacteria None Seen Hyaline Casts 0-2 COVID-19 ([facility]LEY) COVID-19 Clin Com Influenza Type A (VJ) Influenza Type B (VJ) Influenza A & B Note 03/19/25 03/19/25 03/19/25 18:47 19:25 19:38 MCV MCH MCHC RDW Plt Count MPV Immature Gran % (Auto) Neut % (Auto) Lymph % (Auto) [place] % (Auto) Eos % (Auto) Baso % (Auto) Lymph # (Auto) [place] # (Auto) Eos # (Auto) Baso # (Auto) Abs Immat Gran (auto) Absolute Neuts (auto) Absolute Nucleated RBC Nucleated RBC % (auto) VBG pH 7.37 VBG pCO2 56 VBG pO2 48 VBG HCO3 32 H VBG O2 Saturation 72.0 VBG Base Excess 5.8 Anion Gap Estim Creat Clear Calc Estimated GFR POC Glucose 115 Random Glucose Estimat Average Glucose Hemoglobin A1c % Calcium Total Bilirubin AST ALT Alkaline Phosphatase NT-Pro-B Natriuret Pep Total Protein Albumin Urine Color Urine Appearance Urine pH Ur Specific [place] Urine Protein Urine Glucose (UA) Urine Ketones Urine Blood Urine Nitrite Ur Leukocyte Esterase Urine RBC Urine WBC Ur Squamous Epith Cells Urine Bacteria Hyaline Casts COVID-19 ([facility]LEY) Negative COVID-19 Clin Com See Note Influenza Type A (VJ) Negative Influenza Type B (VJ) Negative Influenza A & B Note See Note 03/19/25 03/20/25 03/20/25 22:50 03:01 05:41 MCV MCH MCHC RDW Plt Count MPV Immature Gran % (Auto) Neut % (Auto) Lymph % (Auto) [place] % (Auto) Eos % (Auto) Baso % (Auto) Lymph # (Auto) [place] # (Auto) Eos # (Auto) Baso # (Auto) Abs Immat Gran (auto) Absolute Neuts (auto) Absolute Nucleated RBC Nucleated RBC % (auto) VBG pH VBG pCO2 VBG pO2 VBG HCO3 VBG O2 Saturation VBG Base Excess Anion Gap Estim Creat Clear Calc Estimated GFR POC Glucose 249 H 232 H 226 H Random Glucose Estimat Average Glucose Hemoglobin A1c % Calcium Total Bilirubin AST ALT Alkaline Phosphatase NT-Pro-B Natriuret Pep Total Protein Albumin Urine Color Urine Appearance Urine pH Ur Specific [place] Urine Protein Urine Glucose (UA) Urine Ketones Urine Blood Urine Nitrite Ur Leukocyte Esterase Urine RBC Urine WBC Ur Squamous Epith Cells Urine Bacteria Hyaline Casts COVID-19 ([facility]LEY) COVID-19 Clin Com Influenza Type A (VJ) Influenza Type B (VJ) Influenza A & B Note 03/20/25 03/20/25 06:14 07:12 MCV 83.4 MCH 25.9 L MCHC 31.1 RDW 15.9 Plt Count 355 MPV 10.2 Immature Gran % (Auto) Neut % (Auto) Lymph % (Auto) [place] % (Auto) Eos % (Auto) Baso % (Auto) Lymph # (Auto) [place] # (Auto) Eos # (Auto) Baso # (Auto) Abs Immat Gran (auto) Absolute Neuts (auto) Absolute Nucleated RBC 0.000 Nucleated RBC % (auto) 0.0 VBG pH VBG pCO2 VBG pO2 VBG HCO3 VBG O2 Saturation VBG Base Excess Anion Gap 16 Estim Creat Clear Calc 49.9 Estimated GFR > 60 POC Glucose 249 H Random Glucose 206 H Estimat Average Glucose Hemoglobin A1c % Calcium 9.4 Total Bilirubin AST ALT Alkaline Phosphatase NT-Pro-B Natriuret Pep Total Protein Albumin Urine Color Urine Appearance Urine pH Ur Specific [place] Urine Protein Urine Glucose (UA) Urine Ketones Urine Blood Urine Nitrite Ur Leukocyte Esterase Urine RBC Urine WBC Ur Squamous Epith Cells Urine Bacteria Hyaline Casts COVID-19 ([facility]LEY) COVID-19 Clin Com Influenza Type A (VJ) Influenza Type B (VJ) Influenza A & B Note Assessment and Plan (1) Hypoglycemia: Status: Acute Plan 79F PMH DM, HTN, pafib, copd, alzheimers dementia, hld, cholelithiasis with gallstone pancreatitis treated conservatively 12/2024, skilled nursing resident sent in for agitation, elevated bp, hypoglycemia Agitation elevated blood pressure Likely related to chronic pain Continue Toprol added amlodipine bp much improved, continue to monitor Diabetes with hypoglycemia Likely related to ongoing sulfonylurea use despite worsening appetite Hold diabetes meds, monitor glucose a1c 6.7 now elevated will use sliding scale, on dc likely metformin only FTT, worsening appetite CT abd with some concern for acute cholecystisis vs hepatocellular disease exam benign ?hepatic congestion - check echo if unremarkable would consider chronic cholecystitis -> gen surgery eval Alzheimer dementia Stable Paroxysmal AFib Metoprolol, Eliquis DVT prophylaxis-Eliquis DNR/DNI reason for continued hospitalization:changing to inpatient as work up for cause of patients FTT/lack of appetite still ongoing and cannot be done safely as outpatient due to concern for hypoglycemia Quality Stroke Does the patient have a stroke diagnosis?: No VTE Prior VTE?: No VTE Risk Level:: Medical - moderate - high VTE Device Contraindication: Treatment Not Indicated VTE Drug Contraindication: N/A - Med Ordered
[2025-03-20 11:24] LABS: Glucose, Whole Blood 167 mg/dL (60-115)
[2025-03-20 12:34] LABS: Glucose, Whole Blood 140 mg/dL (60-115)
--- NOTE | 2025-03-20 12:55 | MHC.CM.PN ---
CM ATTEMPTED TO CONTACT PTS HCP/DAUGHTER, KALEIGH [phone], LEFT REQUESTING A RETURN CALL PT IS A LTC RESIDENT AT [facility] PCP[facility] DELIVERED VIA DCP: RETURN TO [facility] [place] V[facility] S
[2025-03-20 13:31] LABS: Glucose, Whole Blood 47 mg/dL (60-115)
[2025-03-20 16:03] LABS: Glucose, Whole Blood 142 mg/dL (60-115)
[2025-03-20] MEDS: oxyCODONE HCl Immed Release 5 MG TABLET PO (16:50)
--- NOTE | 2025-03-20 17:00 | CA_ITS ---
Transthoracic Echocardiogram Patient (Last, First, Middle): Tammy Gardner, Gender: F Date of : 1945 Age: 79 Procedure Date: 03/20/2025 Procedure Type: Transthoracic Echocardiogram Location: [facility] – [place] Height: 157.48 cm Weight: 81.65 kg BSA: 1.83 m2 Heart Rate: 83 bpm BP: 138 / 78 mmHg Sprinkler Fitter Helper: /RC Referring MD: Fernando Wayne MD Symptoms: ?chf Study Quality: Fair ECG Rhythm: Sinus Conclusions: - The left ventricular systolic function is normal. The calculated ejection fraction is 68% by biplane method. - There is mild to moderate aortic valve stenosis. Findings Left Ventricle Normal left ventricular cavity size. There is normal left ventricular wall thickness. The left ventricular systolic function is normal. The calculated ejection fraction is 68% by biplane method. There is no evidence of regional wall motion abnormalities. Evidence suggests grade I (mild) diastolic dysfunction. Right Ventricle Normal right ventricular cavity size and systolic function. Atria Both atria are normal in size. Aortic Valve There is moderate calcification of the aortic valve. There is mild to moderate aortic valve stenosis. The mean gradient is 11 mmHg. There is no aortic valve regurgitation. Dimensionless index 0.46. Stroke volume index 34 mL/m2. Mitral Valve There is mild mitral annular calcification. There is no mitral valve regurgitation. There is no mitral valve stenosis. Pulmonic Valve The pulmonic valve is likely normal. Tricuspid Valve There is trace tricuspid valve regurgitation. There is no evidence of pulmonary hypertension. Great Vessels The sinuses of valsalva and asc aorta are normal in size. Small plaque is seen in the sinuses of Valsalva. Venous The inferior vena cava is normal in size and collapses greater than 50% with inspiration. Pericardium/Pleural There is no evidence of pericardial effusion. Prior Study Comparison No prior study available for comparison. Measurements 2D Linear Measurements IVSd: 0.89 0.6-0.9/0.6-1.0 cm LVIDd: 4.74 3.9-5.3/4.2-5.9 cm LVIDd Index: 2.59 2.4-3.2/2.2-3.1 cm/m2 LVIDs: 3.06 2.0-3.6 cm LVPWd: 0.78 0.7-1.1 cm LA Diam: 2.70 2.7-3.8/3.0-4.0 cm LAIDs Index: 1.48 1.5-2.3 cm/m2 LV Mass: 163.28 67-162/88-224 g LV Mass Index: 89.22 43-95/49-115 g/m2 LVOT Diam: 1.90 3.0+(-)1.3 cm 2D Systolic Function EF 4C: 70.10 >55% EF 2C: 63.70 >55% EF BiP: 67.70 >55% Mitral Valve MV Pk E: 0.76 MV PK A: 0.97 MV Decel Time: 203.00 E/A: 0.80 E'Lateral: 8.27 E'Medial: 5.33 E/E' Med: 14.20 E/E' Lat: 9.20 PHT: 59.00 MVA PHT: 3.73 Decel [place]: 3.74 Aortic Valve AoV Pk Hua: 2.38 AoV Mn Hua: 1.55 AoV VTI: 0.55 AoV Pk Grad: 23.00 Aov Mn Grad: 11.00 ABBE Cont.VTI: 1.16 LVOT LVOT Pk Hua: 1.10 LVOT Mn Hua: 0.63 LVOT VTI: 0.22 LVOT Pk Grad: 5.00 LVOT Mn Grad: 2.00 LVOT Diam: 1.90 LVOT Area: 2.84 Diastolic Function MV Pk E: 0.76 MV Pk A: 0.97 E/A: 0.80 E'Medial: 5.33 E/E' Med: 14.20 E' Laterial: 8.27 E/E' Lat: 9.20 Right Ventricle TAPSE (mm): 27.00 TVS' Hua: 12.30 Tricuspid Valve TR Pk Hua: 2.02 TR Pk Grad: 16.00 RA Press: 3.00 RVSP: 19.00 Great Vessels Aorta Sinus of Valsalva: 2.90 2.0-3.5 cm Ao Asc: 2.70 2.1-3.4 cm Pulmonary Valve PV Pk Hua: 0.84 Peak PV Grad: 3.00 Updated in Other Vendor System with Status of Final Travis Navarro MD electronically signed on 03/20/2025 4:48:19 PM with status of Final
[2025-03-20] MEDS: Lidocaine 4 % Patch ADH..PATCH 2 PATCH TRANSDERMA (17:26)
[2025-03-20 21:07] LABS: Glucose, Whole Blood 186 mg/dL (60-115)
[2025-03-21] MEDS: oxyCODONE HCl Immed Release 5 MG TABLET PO ×3 (00:23→16:48)
[2025-03-21] MEDS: 0.9 % Sodium Chloride Flush 3 ML SYRINGE IVFLUSH ×4 (00:58→22:45)
[2025-03-21] MEDS: OLANZapine 10 MG VIAL 2.5 MG IM ×2 (00:58→22:37)
[2025-03-21 01:00] VITALS: RESP 16
--- NOTE | 2025-03-21 02:55 | PC.NURSE ---
Patient confused, yelling out, attempting OOB, was given oxycodone previous to yelling out, MD ordered xyprexa, given by alternate RN as well as melatonin, with veterinarian assistant used. She is currently resting quietly with eyes open.
[2025-03-21 03:48] VITALS: BP 115/54; PULSE 70; RESP 16; TEMP 36; O2SAT 93
[2025-03-21 06:04] LABS: Hematocrit 38.5 % (37.0-47.0); Hemoglobin 11.9 g/dl (12.0-16.0); Mean Corpuscular HGB Conc 30.9 g/dl (31.0-35.0); Mean Corpuscular Hemoglobin 25.3 pg (27.0-33.0); Mean Corpuscular Volume 81.9 fL (80.0-98.0); NRBC Abs Auto 0.000 X10*3/uL (0.0-0.012); NRBC Pct Auto 0.0 /100WBC (0.0-0.2); Platelet Count 399 X10*3/uL (160-400); Red Blood Count 4.70 X10*6/uL (4.20-5.50); White Blood Count 9.9 X10*3/uL (4.8-10.8)
[2025-03-21 06:19] LABS: Alanine Aminotransferase 24 U/L (0-31); Albumin Level 2.8 g/dL (3.5-5.0); Alkaline Phosphatase 182 U/L (39-117); Anion Gap 13 (12-20); Aspartate Amino Transferase 35 U/L (5-31); Blood Urea Nitrogen 15 mg/dL (9-16); Calcium 9.1 mg/dL (8.4-10.2); Carbon Dioxide 31 mmol/L (22-29); Chloride 103 mmol/L (96-108); Creatinine Clr Calc Pharmacy 42.8; Estimated Glomerular Filt Rate 51; Magnesium 2.3 mg/dL (1.6-2.6); Potassium 3.7 mmol/L (3.3-5.1); Sodium 143 mmol/L (135-145); Total Protein 6.8 g/dL (6.5-8.0)
[2025-03-21 07:14] VITALS: BP 105/53; PULSE 75; RESP 18; TEMP 36; O2SAT 93
[2025-03-21 07:45] LABS: Glucose, Whole Blood 120 mg/dL (60-115)
[2025-03-21] MEDS: oxyCODONE HCl ER 10 MG TAB.ER.12H 20 MG PO ×2 (08:22→20:03)
[2025-03-21] MEDS: Lidocaine 4 % Patch ADH..PATCH 2 PATCH TRANSDERMA (08:22)
[2025-03-21] MEDS: Metoprolol Succinate ER 100 MG TAB.ER.24H PO (08:23)
--- NOTE | 2025-03-21 10:15 | PM.CNGS ---
History of Present Illness Consult details Consult date: 03/21/25 <Annamaria Collins PA-C - Last Filed: 03/21/25 10:24> Reason for consult: other (acute cholecystitis ) <Annamaria Collins PA-C - Last Filed: 03/21/25 10:24> Narrative: 79 year old female with PMH significant for diabetes mellitus, HTN, a fib, COPD, alzheimers dementia who was brought to the ED from her [facility]pc for agitaiton, elevated bp, hypoglycemia. She appeared to be more agitated than usual according to PA staff. Vitals were checked and BP was elevated to over 200. Also noted to have glucose of 57. She apparently has not been eating well and has no appetite. She was admitted to the hospitalist service. CT abd pelvis was obtained which showed distended, fluid filled gallbladder with mild wall thickening. LFTs essentially normal on admission. General surgery was consulted for possible acute cholecystitis. This morning she denies pain but reports she is hungry and wants to eat. <Annamaria Collins PA-C - Last Filed: 03/21/25 10:24> Review of Systems Review of Systems: Yes Unobtainable due to mental condition <Annamaria Collins PA-C - Last Filed: 03/21/25 10:24> [facility] Past Medical History Medical History: Medical History (Updated 03/21/25 @ 10:23 by Annamaria Collins PA-C) Dementia Abdominal pain <Annamaria Collins PA-C - Last Filed: 03/21/25 10:24> Social History Social History: Social History Household Members: Caregiver Housing: Assisted Living Facility Do you presently have visiting nurse or other home services: Yes (SNF per report.) Patient Tobacco Use Status: Never used Tobacco Smoked in Last 30 Days: No e-Cigarette/Vaping Use: Never Used Second Hand Smoke Exposure: No Use of substances other than those prescribed or required for medical reasons: No Currently Displaying Signs/Symptoms of Drug Intoxication Withdrawal: No Advance Directives: Yes Advance Directives Information Provided: No Advance Directives on File: No Advance Directives Date on File: 03/19/25 service: No <Annamaria Collins PA-C - Last Filed: 03/21/25 10:24> Meds Allergies/Adverse reactions: Allergies Allergy/AdvReac Type Severity Reaction Status Date / Time levofloxacin (From LEVAQUIN) Allergy Unknown UNKNOWN Verified 12/23/24 00:54 montelukast (From SINGULAIR) Allergy Unknown UNKNOWN Verified 12/23/24 00:54 penicillin G Allergy Unknown Unknown Verified 12/23/24 00:54 Penicillins (PCN) Allergy Unknown UNKNOWN Verified 12/23/24 00:54 valsartan (From DIOVAN) Allergy Unknown UNKNOWN Verified 12/23/24 00:54 hydrochlorothiazide Allergy Unknown Verified 03/19/25 09:23 lisinopril Allergy Unknown Verified 03/19/25 09:23 <Annamaria Collins PA-C - Last Filed: 03/21/25 10:24> Active Medications: Current Medications Acetaminophen (Acetaminophen 325 Mg Tablet) 650 mg PO Q6H PRN PRN Reason: Pain, Mild 1-3,fever,headache Last Admin: 03/21/25 01:04 Dose: 650 mg Amlodipine Besylate (Amlodipine Besylate 10 Mg Tablet) 10 mg PO BEDTIME [facility]; Protocol Last Admin: 03/20/25 20:58 Dose: 10 mg Apixaban (Apixaban 5 Mg Tablet) 5 mg PO BID [facility] Last Admin: 03/21/25 08:22 Dose: 5 mg Atorvastatin Calcium (Atorvastatin Calcium 20 Mg Tablet) 20 mg PO BEDTIME FLASH Last Admin: 03/20/25 20:59 Dose: 20 mg Baclofen (Baclofen 10 Mg Tablet) 5 mg PO Q8H PRN PRN Reason: Muscle Spasm Bisacodyl (Bisacodyl 10 Mg Supp.Rect) 10 mg MT DAILY PRN PRN Reason: Constipation Calcium Carbonate (Calcium Carbonate 750 Mg Tab.Chew) 750 mg PO Q4H PRN PRN Reason: Heartburn Cyclobenzaprine HCl (Cyclobenzaprine Hcl 5 Mg Tablet) 5 mg PO BID [facility] Last Admin: 03/21/25 08:23 Dose: 5 mg Dextrose (Dextrose 50 % 25 Gm/50 Ml Syringe) 25 gm IVPUSH Q15M PRN; Protocol PRN Reason: per Hypoglycemia Standing Ord. Duloxetine HCl (Duloxetine Hcl 30 Mg Capsule.Dr) 30 mg PO DAILY [facility] Last Admin: 03/21/25 08:22 Dose: 30 mg Furosemide (Furosemide 20 Mg Tablet) 20 mg PO DAILY [facility]; Protocol Last Admin: 03/21/25 08:24 Dose: 20 mg Glucose (Glucose Gel 15 Gm Gel..Gram.) 15 gm PO Q15M PRN; Protocol PRN Reason: per Hypoglycemia Standing Ord. Insulin Human Lispro (Insulin Lispro 100 Unit/Ml 3 Ml Vial) 0 unit SUBCUT QIDACHS [facility]; Protocol Last Admin: 03/21/25 07:57 Dose: Not Given Lidocaine (Lidocaine 4 % Patch Adh..Patch) 2 patch TRANSDERMA DAILY [facility]; Protocol Last Admin: 03/21/25 08:22 Dose: 2 patch Loratadine (Loratadine 10 Mg Tablet) 10 mg PO DAILY [facility] Last Admin: 03/21/25 08:22 Dose: 10 mg Magnesium Hydroxide (Milk Of Magnesia 30 Ml Oral.Susp) 30 ml PO DAILY PRN PRN Reason: Constipation Magnesium Hydroxide (Milk Of Magnesia 30 Ml Oral.Susp) 30 ml PO DAILY PRN PRN Reason: Constipation Melatonin (Melatonin 3 Mg Tablet) 6 mg PO BEDTIME PRN PRN Reason: Insomnia Last Admin: 03/21/25 01:04 Dose: 6 mg Metoprolol Succinate (Metoprolol Succinate Er 100 Mg Tab.Er.24h) 100 mg PO DAILY [facility]; Protocol Last Admin: 03/21/25 08:23 Dose: 100 mg Montelukast Sodium (Montelukast Sodium 10 Mg Tablet) 10 mg PO BEDTIME [facility] Last Admin: 03/20/25 20:58 Dose: 10 mg Multivitamins/Vitamin C (Multivitamin Tablet) 1 tab PO DAILY [facility] Last Admin: 03/21/25 08:23 Dose: 1 tab Naloxone HCl (Naloxone Hcl Nasal 4 Mg [place]) 4 mg NOSTRILALT Q3M PRN PRN Reason: Opioid Overdose Omeprazole (Omeprazole 20 Mg Capsule.Dr) 20 mg PO DAILY@0630 [facility] Last Admin: 03/21/25 06:33 Dose: 20 mg Oxycodone HCl (Oxycodone Hcl Immed Release 5 Mg Tablet) 5 mg PO DAILY@1700 [facility] Last Admin: 03/20/25 16:50 Dose: 5 mg Oxycodone HCl (Oxycodone Hcl Immed Release 5 Mg Tablet) 5 mg PO Q8H PRN PRN Reason: Pain, Severe (Pain Scale 7-10) Last Admin: 03/21/25 00:23 Dose: 5 mg Oxycodone HCl (Oxycodone Hcl Er 10 Mg Tab.Er.12h) 20 mg PO BID@0900,2100 [facility] Last Admin: 03/21/25 08:22 Dose: 20 mg Polyethylene Glycol (Polyethylene Glycol 3350 17 Gm Powd.Pack) 17 gm PO DAILY [facility] Last Admin: 03/21/25 08:29 Dose: 17 gm Quetiapine Fumarate (Quetiapine Fumarate 25 Mg Tablet) 25 mg PO BEDTIME [facility] Last Admin: 03/20/25 20:59 Dose: 25 mg Sodium Biphosphate/Sodium Phosphate (Sodium Phosphate,Leslie-Dibasic 133 Ml Enema) 118 ml MT DAILY PRN PRN Reason: Constipation Sodium Chloride (0.9 % Sodium Chloride Flush 3 Ml Syringe) 3 ml IVFLUSH QSHIFT [facility] Last Admin: 03/21/25 08:27 Dose: 3 ml <Annamaria Collins PA-C - Last Filed: 03/21/25 10:24> Home medications: Home Medications ?Medication ?Instructions ?Recorded ?Confirmed ?Last Taken ?Type acetaminophen 325 mg tablet 650 mg PO Q4H PRN Fever Or Pain 12/23/24 03/19/25 12/22/24 History acetaminophen 650 mg rectal 650 mg MT Q4H PRN pain or fever 12/23/24 03/19/25 Unknown History suppository apixaban 5 mg tablet (Eliquis) 5 mg PO BID 12/23/24 03/19/25 12/22/24 History atorvastatin 20 mg tablet 20 mg PO BEDTIME 12/23/24 03/19/25 12/22/24 History bisacodyl 10 mg rectal suppository 10 mg MT DAILY PRN Constipation 12/23/24 03/19/25 Unknown History clotrimazole 1 % topical cream 1 appl topical DAILY 12/23/24 03/19/25 12/22/24 History empagliflozin 10 mg tablet 10 mg PO DAILY 12/23/24 03/19/25 12/22/24 History (Jardiance) furosemide 20 mg tablet 20 mg PO DAILY 12/23/24 03/19/25 12/22/24 History glipizide 5 mg tablet 5 mg PO BIDAC 12/23/24 03/19/25 12/22/24 History loratadine 10 mg tablet 10 mg PO DAILY 12/23/24 03/19/25 12/22/24 History magnesium hydroxide 400 mg/5 mL 30 ml PO DAILY PRN Constipation 12/23/24 03/19/25 Unknown History oral suspension (Milk of Magnesia) melatonin 3 mg tablet 6 mg PO BEDTIME 12/23/24 03/19/25 12/22/24 History metoprolol succinate 100 mg 100 mg PO DAILY 12/23/24 03/19/25 12/22/24 History tablet,extended release 24 hr montelukast 10 mg tablet 10 mg PO BEDTIME 12/23/24 03/19/25 12/22/24 History omeprazole 20 mg capsule,delayed 20 mg PO DAILY 12/23/24 03/19/25 12/22/24 History release oxycodone 10 mg tablet,crush 20 mg PO BID@0900,2100 12/23/24 03/19/25 12/22/24 History resistant,extended release 12 hr oxycodone 5 mg tablet 5 mg PO DAILY@1700 12/23/24 03/19/25 12/22/24 History polyethylene glycol 3350 17 gram 17 g PO DAILY 12/23/24 03/19/25 12/22/24 History oral powder packet (Miralax) sodium phosphates 19 gram-7 118 ml MT DAILY PRN Constipation 12/23/24 03/19/25 Unknown History gram/118 mL enema (Fleet Enema) baclofen 5 mg tablet 5 mg PO Q8H PRN Muscle Spasm 03/19/25 03/19/25 Unknown History cyclobenzaprine 5 mg tablet 5 mg PO BID 03/19/25 03/19/25 Unknown History duloxetine 30 mg capsule,delayed 30 mg PO DAILY 03/19/25 03/19/25 Unknown History release ipratropium 0.5 mg-albuterol 3 mg 3 ml inhalation Q4H PRN Shortness 03/19/25 03/19/25 Unknown History (2.5 mg base)/3 mL nebulization Of Breath Or Wheezing soln multivitamin 1 tab PO DAILY 03/19/25 03/19/25 Unknown History naloxone 4 mg/actuation nasal 4 mg intranasal Q3M PRN Opioid 03/19/25 03/19/25 Unknown History spray (Narcan) Overdose oxycodone 5 mg tablet 5 mg PO Q8H PRN Pain 03/19/25 03/19/25 Unknown History quetiapine 25 mg tablet 25 mg PO BEDTIME 03/19/25 03/19/25 Unknown History <KULWANT Mcdaniel Last Filed: 03/21/25 10:24> Physical Exam Vital Signs: Vital Signs: Last Vital Signs Temp 96.8 F 03/21/25 07:14 Pulse 75 03/21/25 07:14 Resp 18 03/21/25 07:14 BP 105/53 L 03/21/25 07:14 Pulse Ox 93 03/21/25 07:14 O2 Del Method Room Air 03/21/25 07:14 O2 Flow Rate 2 03/20/25 03:02 BMI result Body Mass Index 33.0 <KULWANT Mcdaniel Last Filed: 03/21/25 10:24> Const: General: comfortable, no acute distress and alert <KULWANT Mcdaniel Last Filed: 03/21/25 10:24> Resp: Effort & Inspection: normal respiratory effort <KULWANT Mcdaniel Last Filed: 03/21/25 10:24> GI: Other: corpulent abdomen <KULWANT Mdcaniel Last Filed: 03/21/25 10:24> Palpation (GI): Soft to palpation, Tenderness to palpation present (GI) in the RUQ and no guarding <KULWANT Mcdaniel Last Filed: 03/21/25 10:24> Skin: General skin exam: no rashes or lesions noted and no jaundice <KULWANT Mcdaniel Last Filed: 03/21/25 10:24> Results Labs Result diagrams: 03/21/25 05:38 03/21/25 05:38 <KULWANT Mcdaniel Last Filed: 03/21/25 10:24> Labs: Abnormal lab results 03/19/25 03/20/25 03/20/25 Range/Units 17:43 11:17 12:31 Hgb (12.0-16.0) g/dl MCH (27.0-33.0) pg MCHC (31.0-35.0) g/dl Carbon Dioxide (22-29) mmol/L POC Glucose 47 L* 167 H 140 H (60-115) mg/dL Random Glucose (60-115) mg/dL AST (5-31) U/L Alkaline Phosphatase (39-117) U/L Albumin (3.5-5.0) g/dL 03/20/25 03/20/25 03/21/25 Range/Units 15:59 20:53 05:38 Hgb 11.9 L (12.0-16.0) g/dl MCH 25.3 L (27.0-33.0) pg MCHC 30.9 L (31.0-35.0) g/dl Carbon Dioxide 31 H (22-29) mmol/L POC Glucose 142 H 186 H (60-115) mg/dL Random Glucose 127 H (60-115) mg/dL AST 35 H (5-31) U/L Alkaline Phosphatase 182 H (39-117) U/L Albumin 2.8 L (3.5-5.0) g/dL 03/21/25 Range/Units 07:18 Hgb (12.0-16.0) g/dl MCH (27.0-33.0) pg MCHC (31.0-35.0) g/dl Carbon Dioxide (22-29) mmol/L POC Glucose 120 H (60-115) mg/dL Random Glucose (60-115) mg/dL AST (5-31) U/L Alkaline Phosphatase (39-117) U/L Albumin (3.5-5.0) g/dL Short CBC 03/21/25 Range/Units 05:38 WBC 9.9 (4.8-10.8) X10*3/uL Hgb 11.9 L (12.0-16.0) g/dl Hct 38.5 (37.0-47.0) % Plt Count 399 (160-400) X10*3/uL BMP 03/21/25 05:38 Sodium 143 Potassium 3.7 Chloride 103 Carbon Dioxide 31 H BUN 15 Creatinine 1.04 Calcium 9.1 Liver Function 03/21/25 Range/Units 05:38 Total Bilirubin 0.6 (0.0-1.0) mg/dL Direct Bilirubin 0.3 (0.0-0.5) mg/dL AST 35 H (5-31) U/L ALT 24 (0-31) U/L Alkaline Phosphatase 182 H (39-117) U/L Albumin 2.8 L (3.5-5.0) g/dL Urine 03/19/25 Range/Units 16:18 Urine Color Yellow Urine Appearance Clear Urine pH 7.0 (5.0-9.0) Ur Specific [place] 1.020 (1.005-1.025) Urine Protein 30 (1+) H (Neg-Trace) mg/dL Urine Glucose (UA) >=1000 H (Negative) mg/dL All other labs normal. <Annamaria Collins PA-C - Last Filed: 03/21/25 10:24> Imaging Abdomen CT scan report/results: report reviewed and image reviewed <Annamaria Collins PA-C - Last Filed: 03/21/25 10:24> Additional studies: labs reviewed <KULWANT Mcdaniel Last Filed: 03/21/25 10:24> Assessment and Plan (1) Acute cholecystitis: Status: Acute <KULWANT Mcdaniel Last Filed: 03/21/25 10:24> She has multiple medical problems and is familiar to me She had a CAT scan for poor appetite which showed a distended gallbladder with mild thickening She denies any abdominal pain Apparently was tender earlier but current exam does not suggest significant right upper quadrant tenderness Would recommend nonoperative treatment for her question of acute cholecystitis IV antibiotics Would hold off on cholecystostomy tube for now Abdomen is soft and benign and she is not septic looking Seen and examined independently <Zeus Santana MD - Last Filed: 03/21/25 15:40> 79 year old female with PMH significant for diabetes mellitus, HTN, a fib, COPD, alzheimers dementia admitting for increasing agitation, hypoglycemia and hypertension. CT scan abd/pelvis obtained for her poor appetite which showed a distended gallbladder with mild wall thickening. She is tender in the RUQ on exam suggestive of acute cholecystitis. She appears to present with significant perioperative risk for anesthesia. Would recommend nonoperative management with just IV antibiotics for now. Can discuss cholecystostomy tube with family if she does not improve with antibiotics but would hold off for now. <Annamaria Collins PA-C - Last Filed: 03/21/25 10:24> Procedures Date of Service Date of Service: 03/21/25 <Annamaria Collins PA-C - Last Filed: 03/21/25 10:24> 03/21/25 <Zeus Santana MD - Last Filed: 03/21/25 15:40>
[2025-03-21 11:36] VITALS: BP 129/60; PULSE 70; RESP 18; TEMP 36.3; O2SAT 96
[2025-03-21 11:37] LABS: Glucose, Whole Blood 167 mg/dL (60-115)
--- NOTE | 2025-03-21 14:05 | MHC.CM.PN ---
EMR REVIEWED AND PER MD ROUNDS, PT IS NOT MEDICALLY CLEARED FOR DC BACK TO SNF. [facility] UPDATED VIA [facility]. CM WILL CONTINUE TO FOLLOW FOR PLAN.
[2025-03-21 15:52] VITALS: BP 137/75; PULSE 86; RESP 18; TEMP 36.3; O2SAT 94
[2025-03-21 16:11] LABS: Glucose, Whole Blood 155 mg/dL (60-115)
--- NOTE | 2025-03-21 16:59 | HO.PM.IMPN ---
Subjective Subjective Date of Service: 03/21/25 Interval History: denies complaints Physical Exam Exam: Exam: Alert oriented to person and place, poor insight, no acute distress. abdomen :soft and nontender to deep palpation, nondistended chest: cta , no rales or wheezin cvs:rrr ,s1s2 heard Vital Signs: Vital Signs: Last Vital Signs Temp 97.4 F 03/21/25 15:52 Pulse 86 03/21/25 15:52 Resp 18 03/21/25 15:52 BP 137/75 03/21/25 15:52 Pulse Ox 94 03/21/25 15:52 O2 Del Method Room Air 03/21/25 15:52 O2 Flow Rate 2 03/20/25 03:02 BMI result Body Mass Index 33.0 Objective Data Active Medications Acetaminophen (Acetaminophen 325 Mg Tablet) 650 mg PO Q6H PRN PRN Reason: Pain, Mild 1-3,fever,headache Last Admin: 03/21/25 01:04 Dose: 650 mg Documented By: INESSA Amlodipine Besylate (Amlodipine Besylate 10 Mg Tablet) 10 mg PO BEDTIME [facility]; Protocol Last Admin: 03/20/25 20:58 Dose: 10 mg Documented By: JAZMINE Apixaban (Apixaban 5 Mg Tablet) 5 mg PO BID [facility] Last Admin: 03/21/25 08:22 Dose: 5 mg Documented By: CHRISTINE Atorvastatin Calcium (Atorvastatin Calcium 20 Mg Tablet) 20 mg PO BEDTIME [facility] Last Admin: 03/20/25 20:59 Dose: 20 mg Documented By: JAZMINE Baclofen (Baclofen 10 Mg Tablet) 5 mg PO Q8H PRN PRN Reason: Muscle Spasm Bisacodyl (Bisacodyl 10 Mg Supp.Rect) 10 mg [place] DAILY PRN PRN Reason: Constipation Calcium Carbonate (Calcium Carbonate 750 Mg Tab.Chew) 750 mg PO Q4H PRN PRN Reason: Heartburn Cyclobenzaprine HCl (Cyclobenzaprine Hcl 5 Mg Tablet) 5 mg PO BID [facility] Last Admin: 03/21/25 08:23 Dose: 5 mg Documented By: CHRISTINE Dextrose (Dextrose 50 % 25 Gm/50 Ml Syringe) 25 gm IVPUSH Q15M PRN; Protocol PRN Reason: per Hypoglycemia Standing Ord. Duloxetine HCl (Duloxetine Hcl 30 Mg Capsule.Dr) 30 mg PO DAILY [facility] Last Admin: 03/21/25 08:22 Dose: 30 mg Documented By: CHRISTINE Furosemide (Furosemide 20 Mg Tablet) 20 mg PO DAILY [facility]; Protocol Last Admin: 03/21/25 08:24 Dose: 20 mg Documented By: CHRISTINE Glucose (Glucose Gel 15 Gm Gel..Gram.) 15 gm PO Q15M PRN; Protocol PRN Reason: per Hypoglycemia Standing Ord. Insulin Human Lispro (Insulin Lispro 100 Unit/Ml 3 Ml Vial) 0 unit SUBCUT QIDACHS [facility]; Protocol Last Admin: 03/21/25 16:48 Dose: 2 unit Documented By: CHRISTINE Lidocaine (Lidocaine 4 % Patch Adh..Patch) 2 patch TRANSDERMA DAILY [facility]; Protocol Last Admin: 03/21/25 08:22 Dose: 2 patch Documented By: CHRISTINE Loratadine (Loratadine 10 Mg Tablet) 10 mg PO DAILY [facility] Last Admin: 03/21/25 08:22 Dose: 10 mg Documented By: CHRISTINE Magnesium Hydroxide (Milk Of Magnesia 30 Ml Oral.Susp) 30 ml PO DAILY PRN PRN Reason: Constipation Magnesium Hydroxide (Milk Of Magnesia 30 Ml Oral.Susp) 30 ml PO DAILY PRN PRN Reason: Constipation Melatonin (Melatonin 3 Mg Tablet) 6 mg PO BEDTIME PRN PRN Reason: Insomnia Last Admin: 03/21/25 01:04 Dose: 6 mg Documented By: INESSA Metoprolol Succinate (Metoprolol Succinate Er 100 Mg Tab.Er.24h) 100 mg PO DAILY [facility]; Protocol Last Admin: 03/21/25 08:23 Dose: 100 mg Documented By: CHRISTINE Montelukast Sodium (Montelukast Sodium 10 Mg Tablet) 10 mg PO BEDTIME [facility] Last Admin: 03/20/25 20:58 Dose: 10 mg Documented By: JAZMINE Multivitamins/Vitamin C (Multivitamin Tablet) 1 tab PO DAILY [facility] Last Admin: 03/21/25 08:23 Dose: 1 tab Documented By: CHRISTINE Naloxone HCl (Naloxone Hcl Nasal 4 Mg [place]) 4 mg NOSTRILALT Q3M PRN PRN Reason: Opioid Overdose Omeprazole (Omeprazole 20 Mg Capsule.) 20 mg PO DAILY@0630 [facility] Last Admin: 03/21/25 06:33 Dose: 20 mg Documented By: TRACI Oxycodone HCl (Oxycodone Hcl Immed Release 5 Mg Tablet) 5 mg PO DAILY@1700 [facility] Last Admin: 03/21/25 16:48 Dose: 5 mg Documented By: CHRISTINE Oxycodone HCl (Oxycodone Hcl Immed Release 5 Mg Tablet) 5 mg PO Q8H PRN PRN Reason: Pain, Severe (Pain Scale 7-10) Last Admin: 03/21/25 12:31 Dose: 5 mg Documented By: KHAI Oxycodone HCl (Oxycodone Hcl Er 10 Mg Tab.Er.12h) 20 mg PO BID@0900,2100 [facility] Last Admin: 03/21/25 08:22 Dose: 20 mg Documented By: CHRISTINE Polyethylene Glycol (Polyethylene Glycol 3350 17 Gm Powd.Pack) 17 gm PO DAILY [facility] Last Admin: 03/21/25 08:29 Dose: 17 gm Documented By: CHRISTINE Quetiapine Fumarate (Quetiapine Fumarate 25 Mg Tablet) 25 mg PO BEDTIME [facility] Last Admin: 03/20/25 20:59 Dose: 25 mg Documented By: JAZMINE Sodium Biphosphate/Sodium Phosphate (Sodium Phosphate,[place]-Dibasic 133 Ml Enema) 118 ml [place] DAILY PRN PRN Reason: Constipation Sodium Chloride (0.9 % Sodium Chloride Flush 3 Ml Syringe) 3 ml IVFLUSH QSHIFT [facility] Last Admin: 03/21/25 16:48 Dose: 3 ml Documented By: CHRISTINE Labs 03/21/25 05:38 03/21/25 05:38 Labs: Laboratory Results - last 24 hr 03/20/25 03/21/25 03/21/25 20:53 05:38 07:18 MCV 81.9 MCH 25.3 L MCHC 30.9 L RDW 15.8 Plt Count 399 MPV 9.8 Absolute Nucleated RBC 0.000 Nucleated RBC % (auto) 0.0 Anion Gap 13 Estim Creat Clear Calc 42.8 Estimated GFR 51 POC Glucose 186 H 120 H Random Glucose 127 H Calcium 9.1 Magnesium 2.3 Total Bilirubin 0.6 Direct Bilirubin 0.3 AST 35 H ALT 24 Alkaline Phosphatase 182 H Total Protein 6.8 Albumin 2.8 L 03/21/25 03/21/25 11:33 16:08 MCV MCH MCHC RDW Plt Count MPV Absolute Nucleated RBC Nucleated RBC % (auto) Anion Gap Estim Creat Clear Calc Estimated GFR POC Glucose 167 H 155 H Random Glucose Calcium Magnesium Total Bilirubin Direct Bilirubin AST ALT Alkaline Phosphatase Total Protein Albumin Assessment and Plan (1) Hypoglycemia: Status: Acute Assessment and Plan: 79F PMH DM, HTN, pafib, copd, alzheimers dementia, hld, cholelithiasis with gallstone pancreatitis treated conservatively 12/2024, snf resident sent in for agitation, elevated bp, hypoglycemia htn/ elevated blood pressure Likely related to chronic pain Continue Toprol added amlodipine bp much improved, continue to monitor Diabetes with hypoglycemia: improving Likely related to ongoing sulfonylurea use despite worsening appetite Hold diabetes meds, monitor glucose a1c 6.7 now elevated will use sliding scale, on dc likely metformin only FTT, worsening appetite CT abd with some concern for acute cholecystisis vs hepatocellular disease exam benign ?hepatic congestion - check echo if unremarkable would consider chronic cholecystitis -> gen surgery eval: rec antibiotics if does not improving consider surgery. Alzheimer dementia Stable Paroxysmal AFib Metoprolol, Eliquis DVT prophylaxis-Eliquis DNR/DNI reason for continued hospitalization:changing to inpatient as work up for cause of patients FTT/lack of appetite still ongoing and cannot be done safely as outpatient due to concern for hypoglycemia Quality Stroke Does the patient have a stroke diagnosis?: No VTE Prior VTE?: No VTE Risk Level:: Medical - moderate - high VTE Device Contraindication: Treatment Not Indicated VTE Drug Contraindication: N/A - Med Ordered
[2025-03-21] MEDS: metroNIDAZOLE/NS 500 MG/100 ML PIGGYBACK 100 MG IV (18:25)
[2025-03-21 19:56] VITALS: BP 138/62; PULSE 69; RESP 20; TEMP 36.2; O2SAT 93
[2025-03-21 20:39] LABS: Glucose, Whole Blood 218 mg/dL (60-115)
[2025-03-22] MEDS: metroNIDAZOLE/NS 500 MG/100 ML PIGGYBACK 100 MG IV ×3 (02:16→16:47)
[2025-03-22 03:38] VITALS: BP 102/54; PULSE 73; RESP 18; TEMP 36; O2SAT 94
--- NOTE | 2025-03-22 05:29 | HO.SKINPHOTO ---
Location: small open wound to coccyx Category: Stage: Length: Width: Depth: cm Location: Category: Stage: Length: Width: Depth: cm Location: Category: Stage: Length: Width: Depth: cm Location: Category: Stage: Length: Width: Depth: cm Location: Category: Stage: Length: Width: Depth: cm Location: Category: Stage: Length: Width: Depth: cm
[2025-03-22 07:25] LABS: Glucose, Whole Blood 105 mg/dL (60-115)
--- NOTE | 2025-03-22 07:49 | HO.PM.IMPN ---
Subjective Subjective Date of Service: 03/22/25 Interval History: cholecysitits Review of Systems says has some epigastric disconfort , po intake is low. Review of Systems: Yes all other systems are reviewed and are negative Physical Exam Exam: Exam: Alert oriented to person and place, poor insight, no acute distress. abdomen :soft and nontender to deep palpation,has epigastric disconfort, nondistended chest: cta , no rales or wheezin cvs:rrr ,s1s2 heard Vital Signs: Vital Signs: Last Vital Signs Temp 96.8 F 03/22/25 03:38 Pulse 73 03/22/25 03:38 Resp 18 03/22/25 03:38 BP 102/54 L 03/22/25 03:38 Pulse Ox 94 03/22/25 03:38 O2 Del Method Room Air 03/22/25 03:38 O2 Flow Rate 2 03/20/25 03:02 BMI result Body Mass Index 33.0 Objective Data Active Medications Acetaminophen (Acetaminophen 325 Mg Tablet) 650 mg PO Q6H PRN PRN Reason: Pain, Mild 1-3,fever,headache Last Admin: 03/21/25 22:42 Dose: 650 mg Documented By: INESSA Amlodipine Besylate (Amlodipine Besylate 10 Mg Tablet) 10 mg PO BEDTIME [facility]; Protocol Last Admin: 03/21/25 20:04 Dose: 10 mg Documented By: FLORENCE Apixaban (Apixaban 5 Mg Tablet) 5 mg PO BID [facility] Last Admin: 03/21/25 20:04 Dose: 5 mg Documented By: FLORENCE Atorvastatin Calcium (Atorvastatin Calcium 20 Mg Tablet) 20 mg PO BEDTIME [facility] Last Admin: 03/21/25 20:04 Dose: 20 mg Documented By: FLORENCE Baclofen (Baclofen 10 Mg Tablet) 5 mg PO Q8H PRN PRN Reason: Muscle Spasm Bisacodyl (Bisacodyl 10 Mg Supp.Rect) 10 mg [place] DAILY PRN PRN Reason: Constipation Calcium Carbonate (Calcium Carbonate 750 Mg Tab.Chew) 750 mg PO Q4H PRN PRN Reason: Heartburn Ceftriaxone Sodium (Ceftriaxone Sodium 2 Gm Vial) 2 gm IVPUSH Q24H [facility] Last Admin: 03/21/25 18:24 Dose: 2 gm Documented By: CHRISTINE Cyclobenzaprine HCl (Cyclobenzaprine Hcl 5 Mg Tablet) 5 mg PO BID [facility] Last Admin: 03/21/25 20:04 Dose: 5 mg Documented By: FLORENCE Dextrose (Dextrose 50 % 25 Gm/50 Ml Syringe) 25 gm IVPUSH Q15M PRN; Protocol PRN Reason: per Hypoglycemia Standing Ord. Duloxetine HCl (Duloxetine Hcl 30 Mg Capsule.Dr) 30 mg PO DAILY [facility] Last Admin: 03/21/25 08:22 Dose: 30 mg Documented By: CHRISTINE Furosemide (Furosemide 20 Mg Tablet) 20 mg PO DAILY [facility]; Protocol Last Admin: 03/21/25 08:24 Dose: 20 mg Documented By: CHRISTINE Glucose (Glucose Gel 15 Gm Gel..Gram.) 15 gm PO Q15M PRN; Protocol PRN Reason: per Hypoglycemia Standing Ord. Metronidazole (Flagyl) 500 mg in 100 mls @ 100 mls/hr IV Q8H [facility] Last Infusion: 03/22/25 03:19 Dose: Infused Documented By: FLORENCE Insulin Human Lispro (Insulin Lispro 100 Unit/Ml 3 Ml Vial) 0 unit SUBCUT QIDACHS [facility]; Protocol Last Admin: 03/22/25 07:45 Dose: Not Given Documented By: ANDRE Non-Admin Reason: No Insulin Coverage Lidocaine (Lidocaine 4 % Patch Adh..Patch) 2 patch TRANSDERMA DAILY [facility]; Protocol Last Admin: 03/21/25 08:22 Dose: 2 patch Documented By: CHRISTINE Loratadine (Loratadine 10 Mg Tablet) 10 mg PO DAILY [facility] Last Admin: 03/21/25 08:22 Dose: 10 mg Documented By: CHRISTINE Magnesium Hydroxide (Milk Of Magnesia 30 Ml Oral.Susp) 30 ml PO DAILY PRN PRN Reason: Constipation Magnesium Hydroxide (Milk Of Magnesia 30 Ml Oral.Susp) 30 ml PO DAILY PRN PRN Reason: Constipation Melatonin (Melatonin 3 Mg Tablet) 6 mg PO BEDTIME PRN PRN Reason: Insomnia Last Admin: 03/21/25 22:42 Dose: 6 mg Documented By: INESSA Metoprolol Succinate (Metoprolol Succinate Er 100 Mg Tab.Er.24h) 100 mg PO DAILY [facility]; Protocol Last Admin: 03/21/25 08:23 Dose: 100 mg Documented By: CHRISTINE Montelukast Sodium (Montelukast Sodium 10 Mg Tablet) 10 mg PO BEDTIME [facility] Last Admin: 03/21/25 20:09 Dose: Not Given Documented By: FLORENCE Non-Admin Reason: Allergy Multivitamins/Vitamin C (Multivitamin Tablet) 1 tab PO DAILY [facility] Last Admin: 03/21/25 08:23 Dose: 1 tab Documented By: CHRISTINE Naloxone HCl (Naloxone Hcl Nasal 4 Mg [place]) 4 mg NOSTRILALT Q3M PRN PRN Reason: Opioid Overdose Olanzapine (Olanzapine 5 Mg Tablet) 5 mg PO BEDTIME [facility] Omeprazole (Omeprazole 20 Mg Capsule.Dr) 20 mg PO DAILY@0630 [facility] Last Admin: 03/22/25 06:15 Dose: Not Given Documented By: FLORENCE Non-Admin Reason: Patient Refused Oxycodone HCl (Oxycodone Hcl Immed Release 5 Mg Tablet) 5 mg PO DAILY@1700 [facility] Last Admin: 03/21/25 16:48 Dose: 5 mg Documented By: CHRISTINE Oxycodone HCl (Oxycodone Hcl Immed Release 5 Mg Tablet) 5 mg PO Q8H PRN PRN Reason: Pain, Severe (Pain Scale 7-10) Last Admin: 03/21/25 12:31 Dose: 5 mg Documented By: KHAI Oxycodone HCl (Oxycodone Hcl Er 10 Mg Tab.Er.12h) 20 mg PO BID@0900,2100 [facility] Last Admin: 03/21/25 20:03 Dose: 20 mg Documented By: FLORENCE Polyethylene Glycol (Polyethylene Glycol 3350 17 Gm Powd.Pack) 17 gm PO DAILY [facility] Last Admin: 03/21/25 08:29 Dose: 17 gm Documented By: CHRISTINE Sodium Biphosphate/Sodium Phosphate (Sodium Phosphate,[place]-Dibasic 133 Ml Enema) 118 ml [place] DAILY PRN PRN Reason: Constipation Sodium Chloride (0.9 % Sodium Chloride Flush 3 Ml Syringe) 3 ml IVFLUSH QSHIFT [facility] Last Admin: 03/21/25 22:45 Dose: 3 ml Documented By: CATINAQC Labs 03/21/25 05:38 03/21/25 05:38 Labs: Laboratory Results - last 24 hr 09/17/25 09/17/25 09/17/25 11:33 16:08 20:30 POC Glucose 167 H 155 H 218 H 03/22/25 07:16 POC Glucose 105 Assessment and Plan (1) Hypoglycemia: Status: Acute Assessment and Plan: 79F PMH DM, HTN, pafib, copd, alzheimers dementia, hld, cholelithiasis with gallstone pancreatitis treated conservatively 12/2024, custodial resident sent in for agitation, elevated bp, hypoglycemia htn/ elevated blood pressure Likely related to chronic pain Continue Toprol added amlodipine bp much improved, continue to monitor Diabetes with hypoglycemia: improving Likely related to ongoing sulfonylurea use despite worsening appetite Hold diabetes meds, monitor glucose a1c 6.7 now elevated will use sliding scale, on dc likely metformin only FTT, worsening appetite CT abd with some concern for acute cholecystisis vs hepatocellular disease exam benign ?hepatic congestion - echo -seems fine ef:68% acute cholecystitis -> gen surgery eval: rec antibiotics if does not improving consider surgery. Alzheimer dementia Stable Paroxysmal AFib Metoprolol, Eliquis DVT prophylaxis-Eliquis DNR/DNI reason for continued hospitalization:changing to inpatient as work up for cause of patients FTT/lack of appetite ,acute cholecystitis-with IV antibiotic, patient still has epigastric disconfort/low po intake . still ongoing and cannot be done safely as outpatient due to concern for hypoglycemia Quality Stroke Does the patient have a stroke diagnosis?: No VTE Prior VTE?: No VTE Risk Level:: Medical - moderate - high VTE Device Contraindication: Treatment Not Indicated VTE Drug Contraindication: N/A - Med Ordered
[2025-03-22 07:58] VITALS: BP 133/60; PULSE 94; RESP 18; TEMP 36.3; O2SAT 93
--- NOTE | 2025-03-22 08:26 | P.PNGS_ITS ---
Subjective Subjective Date of Service: 03/23/25 Interval history: Seems to have been tolerating diet Complains of headache No fever overnight No reported nausea or vomiting Physical Exam 2 Vital Signs: Vital Signs: Last Vital Signs Temp 97.4 F 03/22/25 07:58 Pulse 94 03/22/25 07:58 Resp 18 03/22/25 07:58 BP 133/60 03/22/25 07:58 Pulse Ox 93 03/22/25 07:58 O2 Del Method Room Air 03/22/25 07:58 O2 Flow Rate 2 03/20/25 03:02 BMI result Body Mass Index 33.0 Const: Other: Appears comfortable General: comfortable and no acute distress Resp: Effort & Inspection: normal respiratory effort Cardio: Rate: regular rate GI: Palpation (GI): Soft to palpation, not firm, Tenderness to palpation present (GI) (Still with some right-sided tenderness) and no guarding Objective Data Active Medications Acetaminophen (Acetaminophen 325 Mg Tablet) 650 mg PO Q6H PRN PRN Reason: Pain, Mild 1-3,fever,headache Last Admin: 03/21/25 22:42 Dose: 650 mg Documented By: INESSA Amlodipine Besylate (Amlodipine Besylate 10 Mg Tablet) 10 mg PO BEDTIME [facility]; Protocol Last Admin: 03/21/25 20:04 Dose: 10 mg Documented By: FLORENCE Apixaban (Apixaban 5 Mg Tablet) 5 mg PO BID [facility] Last Admin: 03/21/25 20:04 Dose: 5 mg Documented By: FLORENCE Atorvastatin Calcium (Atorvastatin Calcium 20 Mg Tablet) 20 mg PO BEDTIME [facility] Last Admin: 03/21/25 20:04 Dose: 20 mg Documented By: FLORENCE Baclofen (Baclofen 10 Mg Tablet) 5 mg PO Q8H PRN PRN Reason: Muscle Spasm Bisacodyl (Bisacodyl 10 Mg Supp.Rect) 10 mg [place] DAILY PRN PRN Reason: Constipation Calcium Carbonate (Calcium Carbonate 750 Mg Tab.Chew) 750 mg PO Q4H PRN PRN Reason: Heartburn Ceftriaxone Sodium (Ceftriaxone Sodium 2 Gm Vial) 2 gm IVPUSH Q24H [facility] Last Admin: 03/21/25 18:24 Dose: 2 gm Documented By: CHRISTINE Cyclobenzaprine HCl (Cyclobenzaprine Hcl 5 Mg Tablet) 5 mg PO BID [facility] Last Admin: 03/21/25 20:04 Dose: 5 mg Documented By: FLORENCE Dextrose (Dextrose 50 % 25 Gm/50 Ml Syringe) 25 gm IVPUSH Q15M PRN; Protocol PRN Reason: per Hypoglycemia Standing Ord. Duloxetine HCl (Duloxetine Hcl 30 Mg Capsule.Dr) 30 mg PO DAILY [facility] Last Admin: 03/21/25 08:22 Dose: 30 mg Documented By: CHRISTINE Furosemide (Furosemide 20 Mg Tablet) 20 mg PO DAILY [facility]; Protocol Last Admin: 03/21/25 08:24 Dose: 20 mg Documented By: CHRISTINE Glucose (Glucose Gel 15 Gm Gel..Gram.) 15 gm PO Q15M PRN; Protocol PRN Reason: per Hypoglycemia Standing Ord. Metronidazole (Flagyl) 500 mg in 100 mls @ 100 mls/hr IV Q8H [facility] Last Infusion: 03/22/25 03:19 Dose: Infused Documented By: FLORENCE Insulin Human Lispro (Insulin Lispro 100 Unit/Ml 3 Ml Vial) 0 unit SUBCUT QIDACHS [facility]; Protocol Last Admin: 03/22/25 07:45 Dose: Not Given Documented By: ANDRE Non-Admin Reason: No Insulin Coverage Lidocaine (Lidocaine 4 % Patch Adh..Patch) 2 patch TRANSDERMA DAILY [facility]; Protocol Last Admin: 03/21/25 08:22 Dose: 2 patch Documented By: CHRISTINE Loratadine (Loratadine 10 Mg Tablet) 10 mg PO DAILY [facility] Last Admin: 03/21/25 08:22 Dose: 10 mg Documented By: CHRISTINE Magnesium Hydroxide (Milk Of Magnesia 30 Ml Oral.Susp) 30 ml PO DAILY PRN PRN Reason: Constipation Magnesium Hydroxide (Milk Of Magnesia 30 Ml Oral.Susp) 30 ml PO DAILY PRN PRN Reason: Constipation Melatonin (Melatonin 3 Mg Tablet) 6 mg PO BEDTIME PRN PRN Reason: Insomnia Last Admin: 03/21/25 22:42 Dose: 6 mg Documented By: INESSA Metoprolol Succinate (Metoprolol Succinate Er 100 Mg Tab.Er.24h) 100 mg PO DAILY [facility]; Protocol Last Admin: 03/21/25 08:23 Dose: 100 mg Documented By: CHRISTINE Montelukast Sodium (Montelukast Sodium 10 Mg Tablet) 10 mg PO BEDTIME [facility] Last Admin: 03/21/25 20:09 Dose: Not Given Documented By: FLORENCE Non-Admin Reason: Allergy Multivitamins/Vitamin C (Multivitamin Tablet) 1 tab PO DAILY [facility] Last Admin: 03/21/25 08:23 Dose: 1 tab Documented By: CHRISTINE Naloxone HCl (Naloxone Hcl Nasal 4 Mg [place]) 4 mg NOSTRILALT Q3M PRN PRN Reason: Opioid Overdose Olanzapine (Olanzapine 5 Mg Tablet) 5 mg PO BEDTIME [facility] Omeprazole (Omeprazole 20 Mg Capsule.Dr) 20 mg PO DAILY@0630 [facility] Last Admin: 03/22/25 06:15 Dose: Not Given Documented By: FLORENCE Non-Admin Reason: Patient Refused Oxycodone HCl (Oxycodone Hcl Immed Release 5 Mg Tablet) 5 mg PO DAILY@1700 [facility] Last Admin: 03/21/25 16:48 Dose: 5 mg Documented By: CHRISTINE Oxycodone HCl (Oxycodone Hcl Immed Release 5 Mg Tablet) 5 mg PO Q8H PRN PRN Reason: Pain, Severe (Pain Scale 7-10) Last Admin: 03/21/25 12:31 Dose: 5 mg Documented By: KHAI Oxycodone HCl (Oxycodone Hcl Er 10 Mg Tab.Er.12h) 20 mg PO BID@0900,2100 [facility] Last Admin: 03/21/25 20:03 Dose: 20 mg Documented By: FLORENCE Polyethylene Glycol (Polyethylene Glycol 3350 17 Gm Powd.Pack) 17 gm PO DAILY [facility] Last Admin: 03/21/25 08:29 Dose: 17 gm Documented By: CHRISTINE Sodium Biphosphate/Sodium Phosphate (Sodium Phosphate,[place]-Dibasic 133 Ml Enema) 118 ml [place] DAILY PRN PRN Reason: Constipation Sodium Chloride (0.9 % Sodium Chloride Flush 3 Ml Syringe) 3 ml IVFLUSH QSHIFT [facility] Last Admin: 03/21/25 22:45 Dose: 3 ml Documented By: CATINAQC Labs 03/21/25 05:38 03/21/25 05:38 Labs: Laboratory Results - last 24 hr 03/21/25 03/21/25 03/21/25 11:33 16:08 20:30 POC Glucose 167 H 155 H 218 H 03/22/25 07:16 POC Glucose 105 Procedures Date of Service Date of Service: 03/23/25 Progress Note: A&P Assessment and plan (1) Acute cholecystitis: Status: Acute Assessment and Plan: With significant perioperative risks Continue current treatment Would recommend low-fat diet Looks well overall If with worsening, would recommend IR cholecystostomy Time Spent With Patient Time: Total time managing care of this patient today ____ minutes. Quality Stroke Does the patient have a stroke diagnosis?: No VTE Prior VTE?: No VTE Risk Level:: Medical - moderate - high VTE Device Contraindication: Treatment Not Indicated VTE Drug Contraindication: N/A - Med Ordered
[2025-03-22] MEDS: oxyCODONE HCl ER 10 MG TAB.ER.12H 20 MG PO ×2 (08:58→20:38)
[2025-03-22] MEDS: Metoprolol Succinate ER 100 MG TAB.ER.24H PO (08:59)
[2025-03-22] MEDS: 0.9 % Sodium Chloride Flush 3 ML SYRINGE IVFLUSH ×2 (08:59→15:38)
[2025-03-22 11:35] LABS: Glucose, Whole Blood 149 mg/dL (60-115)
--- NOTE | 2025-03-22 11:46 | HO.PM.IMPN ---
Subjective Subjective Date of Service: 03/23/25 Interval History: acute cholecystitis Review of Systems Has mild epigastric discomfort, decreased p.o. intake Physical Exam Exam: Exam: More sleepy over the morning time, getting more awake afternoon time. poor insight, no acute distress. abdomen :soft and nontender to deep palpation,has epigastric disconfort, nondistended chest: cta , no rales or wheezin cvs:rrr ,s1s2 heard Vital Signs: Vital Signs: Last Vital Signs Temp 97.4 F 03/22/25 07:58 Pulse 94 03/22/25 07:58 Resp 18 03/22/25 07:58 BP 133/60 03/22/25 07:58 Pulse Ox 93 03/22/25 07:58 O2 Del Method Room Air 03/22/25 07:58 O2 Flow Rate 2 03/20/25 03:02 BMI result Body Mass Index 33.0 Objective Data Active Medications Acetaminophen (Acetaminophen 325 Mg Tablet) 650 mg PO Q6H PRN PRN Reason: Pain, Mild 1-3,fever,headache Last Admin: 03/21/25 22:42 Dose: 650 mg Documented By: INESSA Amlodipine Besylate (Amlodipine Besylate 10 Mg Tablet) 10 mg PO BEDTIME [facility]; Protocol Last Admin: 03/21/25 20:04 Dose: 10 mg Documented By: FLORENCE Apixaban (Apixaban 5 Mg Tablet) 5 mg PO BID [facility] Last Admin: 03/22/25 08:58 Dose: 5 mg Documented By: ANDRE Atorvastatin Calcium (Atorvastatin Calcium 20 Mg Tablet) 20 mg PO BEDTIME [facility] Last Admin: 03/21/25 20:04 Dose: 20 mg Documented By: FLORENCE Baclofen (Baclofen 10 Mg Tablet) 5 mg PO Q8H PRN PRN Reason: Muscle Spasm Bisacodyl (Bisacodyl 10 Mg Supp.Rect) 10 mg [place] DAILY PRN PRN Reason: Constipation Calcium Carbonate (Calcium Carbonate 750 Mg Tab.Chew) 750 mg PO Q4H PRN PRN Reason: Heartburn Ceftriaxone Sodium (Ceftriaxone Sodium 2 Gm Vial) 2 gm IVPUSH Q24H [facility] Last Admin: 03/21/25 18:24 Dose: 2 gm Documented By: CHRISTINE Cyclobenzaprine HCl (Cyclobenzaprine Hcl 5 Mg Tablet) 5 mg PO BID [facility] Last Admin: 03/22/25 08:59 Dose: 5 mg Documented By: ANDRE Dextrose (Dextrose 50 % 25 Gm/50 Ml Syringe) 25 gm IVPUSH Q15M PRN; Protocol PRN Reason: per Hypoglycemia Standing Ord. Duloxetine HCl (Duloxetine Hcl 30 Mg Capsule.) 30 mg PO DAILY [facility] Last Admin: 03/22/25 08:59 Dose: 30 mg Documented By: ANDRE Furosemide (Furosemide 20 Mg Tablet) 20 mg PO DAILY [facility]; Protocol Last Admin: 03/22/25 08:58 Dose: 20 mg Documented By: ANDRE Glucose (Glucose Gel 15 Gm Gel..Gram.) 15 gm PO Q15M PRN; Protocol PRN Reason: per Hypoglycemia Standing Ord. Metronidazole (Flagyl) 500 mg in 100 mls @ 100 mls/hr IV Q8H [facility] Last Infusion: 03/22/25 11:31 Dose: Infused Documented By: ANDRE Insulin Human Lispro (Insulin Lispro 100 Unit/Ml 3 Ml Vial) 0 unit SUBCUT QIDACHS [facility]; Protocol Last Admin: 03/22/25 11:37 Dose: Not Given Documented By: ANDRE Non-Admin Reason: No Insulin Coverage Lidocaine (Lidocaine 4 % Patch Adh..Patch) 2 patch TRANSDERMA DAILY [facility]; Protocol Last Admin: 03/22/25 09:07 Dose: Not Given Documented By: ANDRE Non-Admin Reason: Patient Refused Loratadine (Loratadine 10 Mg Tablet) 10 mg PO DAILY [facility] Last Admin: 03/22/25 08:58 Dose: 10 mg Documented By: ANDRE Magnesium Hydroxide (Milk Of Magnesia 30 Ml Oral.Susp) 30 ml PO DAILY PRN PRN Reason: Constipation Magnesium Hydroxide (Milk Of Magnesia 30 Ml Oral.Susp) 30 ml PO DAILY PRN PRN Reason: Constipation Melatonin (Melatonin 3 Mg Tablet) 6 mg PO BEDTIME PRN PRN Reason: Insomnia Last Admin: 03/21/25 22:42 Dose: 6 mg Documented By: INESSA Metoprolol Succinate (Metoprolol Succinate Er 100 Mg Tab.Er.24h) 100 mg PO DAILY [facility]; Protocol Last Admin: 03/22/25 08:59 Dose: 100 mg Documented By: ANDRE Montelukast Sodium (Montelukast Sodium 10 Mg Tablet) 10 mg PO BEDTIME [facility] Last Admin: 03/21/25 20:09 Dose: Not Given Documented By: FLORENCE Non-Admin Reason: Allergy Multivitamins/Vitamin C (Multivitamin Tablet) 1 tab PO DAILY [facility] Last Admin: 03/22/25 08:58 Dose: 1 tab Documented By: ANDRE Naloxone HCl (Naloxone Hcl Nasal 4 Mg [place]) 4 mg NOSTRILALT Q3M PRN PRN Reason: Opioid Overdose Olanzapine (Olanzapine 5 Mg Tablet) 5 mg PO BEDTIME [facility] Omeprazole (Omeprazole 20 Mg Capsule.Dr) 20 mg PO DAILY@0630 [facility] Last Admin: 03/22/25 06:15 Dose: Not Given Documented By: FLORENCE Non-Admin Reason: Patient Refused Oxycodone HCl (Oxycodone Hcl Immed Release 5 Mg Tablet) 5 mg PO DAILY@1700 [facility] Last Admin: 03/21/25 16:48 Dose: 5 mg Documented By: CHRISTINE Oxycodone HCl (Oxycodone Hcl Immed Release 5 Mg Tablet) 5 mg PO Q8H PRN PRN Reason: Pain, Severe (Pain Scale 7-10) Last Admin: 03/21/25 12:31 Dose: 5 mg Documented By: KHAI Oxycodone HCl (Oxycodone Hcl Er 10 Mg Tab.Er.12h) 20 mg PO BID@0900,2100 [facility] Last Admin: 03/22/25 08:58 Dose: 20 mg Documented By: ANDRE Polyethylene Glycol (Polyethylene Glycol 3350 17 Gm Powd.Pack) 17 gm PO DAILY [facility] Last Admin: 03/22/25 09:00 Dose: 17 gm Documented By: ANDRE Sodium Biphosphate/Sodium Phosphate (Sodium Phosphate,[place]-Dibasic 133 Ml Enema) 118 ml [place] DAILY PRN PRN Reason: Constipation Sodium Chloride (0.9 % Sodium Chloride Flush 3 Ml Syringe) 3 ml IVFLUSH QSHIFT [facility] Last Admin: 03/22/25 08:59 Dose: 3 ml Documented By: ANDRE Labs 03/23/25 10:17 03/23/25 11:49 Labs: Laboratory Results - last 24 hr 09/03/21/25 03/22/25 16:08 20:30 07:16 POC Glucose 155 H 218 H 105 03/22/25 11:31 POC Glucose 149 H Assessment and Plan (1) Acute cholecystitis: Status: Acute Assessment and Plan: 79F PMH DM, HTN, pafib, copd, alzheimers dementia, hld, cholelithiasis with gallstone pancreatitis treated conservatively 12/2024, [place] [facility] resident sent in for agitation, elevated bp, hypoglycemia htn/ elevated blood pressure Likely related to chronic pain Continue Toprol added amlodipine bp much improved, continue to monitor Diabetes with hypoglycemia: improving Likely related to ongoing sulfonylurea use despite worsening appetite Hold diabetes meds, monitor glucose a1c 6.7 now elevated will use sliding scale, on dc likely metformin only FTT, worsening appetite CT abd with some concern for acute cholecystisis vs hepatocellular disease exam benign ?hepatic congestion - echo -seems fine ef:68% acute cholecystitis -> gen surgery eval: rec antibiotics if does not improving consider surgery. Alzheimer dementia -has somloscent hold psych meds and avoid sedative meds vbg-ph seems fine, cmp fine ct head:1. No acute intracranial abnormality. 2. Age-related cerebral and cerebellar volume loss, and moderate changes of small vessel ischemia. Stable Paroxysmal AFib Metoprolol, Eliquis DVT prophylaxis-Eliquis DNR/DNI reason for continued hospitalization:changing to inpatient as work up for cause of patients FTT/lack of appetite ,acute cholecystitis-with IV antibiotic, patient still has epigastric disconfort/low po intake . still ongoing and cannot be done safely as outpatient due to concern for hypoglycemia Quality Stroke Does the patient have a stroke diagnosis?: No VTE Prior VTE?: No VTE Risk Level:: Medical - moderate - high VTE Device Contraindication: Treatment Not Indicated VTE Drug Contraindication: N/A - Med Ordered
[2025-03-22 15:57] VITALS: BP 115/56; PULSE 82; RESP 19; TEMP 36.7; O2SAT 93
[2025-03-22] MEDS: oxyCODONE HCl Immed Release 5 MG TABLET PO (16:15)
[2025-03-22 16:27] LABS: Glucose, Whole Blood 178 mg/dL (60-115)
--- NOTE | 2025-03-22 17:48 | PC.NURSE ---
Pt confused. Talking to people that aren't there. POC 178 at dinner. Refusing to eat. Sliding scale insulin held.
[2025-03-22 19:47] LABS: Glucose, Whole Blood 138 mg/dL (60-115)
[2025-03-22 19:55] VITALS: BP 172/79; PULSE 76; RESP 18; TEMP 36.4; O2SAT 98
[2025-03-22 21:54] LABS: Glucose, Whole Blood 126 mg/dL (60-115)
[2025-03-23] MEDS: metroNIDAZOLE/NS 500 MG/100 ML PIGGYBACK 100 MG IV ×3 (02:09→17:27)
[2025-03-23] MEDS: 0.9 % Sodium Chloride Flush 3 ML SYRINGE IVFLUSH ×2 (02:10→17:20)
[2025-03-23 03:07] VITALS: BP 135/62; PULSE 83; RESP 18; TEMP 36.7; O2SAT 93
--- NOTE | 2025-03-23 03:49 | PC.NURSE ---
0349. Pt not sleeping tonight despite receiving melatonin. Talking to herself in the room, reporting to staff she thinks there is a baby on the floor and making hand grabbing motions in the air. Oriented to person only . Unable to distract or redirect thought process when speaking to her in Amharic, primary language. Pt reports having bilateral knee pain, scheduled pain medication and prn medications provided with moderate effect. VSS. Pt relocated from [phone] to [phone] to be closer to nursing station for observation safety. Dr. Christensen notified, awaiting orders.
[2025-03-23] MEDS: OLANZapine 10 MG VIAL 2.5 MG IM (04:26)
[2025-03-23 07:26] LABS: Glucose, Whole Blood 119 mg/dL (60-115)
[2025-03-23 07:46] VITALS: BP 159/72; PULSE 88; RESP 18; TEMP 36.9; O2SAT 95
[2025-03-23] MEDS: Metoprolol Succinate ER 100 MG TAB.ER.24H PO (08:09)
[2025-03-23] MEDS: oxyCODONE HCl ER 10 MG TAB.ER.12H 20 MG PO (08:10)
[2025-03-23 10:26] LABS: Venous Blood Gas Refer to POC result
[2025-03-23 10:28] LABS: VBG HCO3 29 mmol/L (22-26); VBG O2 % Saturation 87.0 %
[2025-03-23 10:28] LABS: Hematocrit 42.5 % (37.0-47.0); Hemoglobin 13.3 g/dl (12.0-16.0); Mean Corpuscular HGB Conc 31.3 g/dl (31.0-35.0); Mean Corpuscular Hemoglobin 25.6 pg (27.0-33.0); Mean Corpuscular Volume 81.7 fL (80.0-98.0); NRBC Abs Auto 0.000 X10*3/uL (0.0-0.012); NRBC Pct Auto 0.0 /100WBC (0.0-0.2); Platelet Count 396 X10*3/uL (160-400); Red Blood Count 5.20 X10*6/uL (4.20-5.50); White Blood Count 8.3 X10*3/uL (4.8-10.8)
[2025-03-23 10:53] LABS: Ammonia 17 umol/L (13-55)
[2025-03-23 11:12] LABS: Glucose, Whole Blood 140 mg/dL (60-115)
[2025-03-23 12:50] LABS: Alanine Aminotransferase 13 U/L (0-31); Albumin Level 3.0 g/dL (3.5-5.0); Alkaline Phosphatase 172 U/L (39-117); Anion Gap 14 (12-20); Aspartate Amino Transferase 25 U/L (5-31); Blood Urea Nitrogen 16 mg/dL (9-16); Calcium 9.2 mg/dL (8.4-10.2); Carbon Dioxide 28 mmol/L (22-29); Chloride 104 mmol/L (96-108); Creatinine Clr Calc Pharmacy 56.3; Estimated Glomerular Filt Rate > 60; Potassium 4.2 mmol/L (3.3-5.1); Sodium 142 mmol/L (135-145); Total Protein 7.2 g/dL (6.5-8.0)
[2025-03-23 12:53] VITALS: BMI 33.0
--- NOTE | 2025-03-23 13:04 | MHC.CLN ---
NUTRITION DIET RX DIABETIC 1800 KCALS. SKIN WITH OPEN WOUND TO COCCYX. PO INTAKE VARIABLE, 0-75%. ADDING ENSURE MAX PROTEIN BID TO PROMOTE WOUND HEALING AND NUTRITIONAL INTAKE. SUPPLEMENT PROVIDES 300 KCALS, 60 G PROTEIN. FOLLOW FOR PO INTAKE AND SKIN INTEGRITY. SEE CLINICAL NUTRITION ASSESSMENT 03/23/25.
--- NOTE | 2025-03-23 14:47 | HO.WOUND ---
Wound Consult: Initial 79 yr old female admitted to [facility] [place]- See progress notes and H&P for detailed history. Wound team consulted to assess coccyx. Photo reviewed Coccyx Etiology: stage 2 pressure injury Present on Admission Measurements: 2cm x 0.7cm x 0.1cm Wound Bed: moist red Drainage / Odor: none Edges: ? attached Haley wound: ? No Induration, Fluctuance or Warmth noted Pain: none Goals of Treatment: ? offloading and pressure redistribution, moist healing with foam Recommendations: 1. Turn and Reposition every 2 hours and as needed for patient comfort. Use pillows or wedges to support off loading positions. 2. Off Load all bony prominences with use of pillows and heel boots if needed. Apply Preventative foams where needed. 3. Monitor for incontinence and moisture control, use barrier creams when needed for prevention and treatment. 4. Provide adequate and supplemental nutrition. 5. Order or Continue low air loss mattress. 6. When applicable maintain blood glucose levels per Providers order. Coccyx: Off Load Pressure with Q2 hr turns and use of pillows - Routine cleansing. Apply skin prep allow to dry. Cover with foam dressing to aid in off loading and protection from friction. Change every 3 days and PRN. Re-consult wound care Nurse for wound deterioration or wound changes.
[2025-03-23 15:39] VITALS: BP 176/78; PULSE 80; RESP 16; TEMP 36.9; O2SAT 93
--- NOTE | 2025-03-23 15:55 | P.PNGS_ITS ---
Subjective Subjective Date of Service: 03/23/25 Interval history: Has been drowsy all day Otherwise has been tolerating diet Physical Exam 2 Vital Signs: Vital Signs: Last Vital Signs Temp 98.4 F 03/23/25 15:39 Pulse 80 03/23/25 15:39 Resp 16 03/23/25 15:39 BP 176/78 H 03/23/25 15:39 Pulse Ox 93 03/23/25 15:39 O2 Del Method Room Air 03/23/25 15:39 O2 Flow Rate 2 03/20/25 03:02 BMI result Body Mass Index 33.0 Const: General: comfortable and no acute distress Resp: Effort & Inspection: normal respiratory effort GI: Other: Mild tenderness in the right side Objective Data Active Medications Acetaminophen (Acetaminophen 325 Mg Tablet) 650 mg PO Q6H PRN PRN Reason: Pain, Mild 1-3,fever,headache Last Admin: 03/21/25 22:42 Dose: 650 mg Documented By: INESSA Amlodipine Besylate (Amlodipine Besylate 10 Mg Tablet) 10 mg PO BEDTIME [facility]; Protocol Last Admin: 03/22/25 20:36 Dose: 10 mg Documented By: JHOANA Apixaban (Apixaban 5 Mg Tablet) 5 mg PO BID [facility] Last Admin: 03/23/25 08:09 Dose: 5 mg Documented By: KHAI Atorvastatin Calcium (Atorvastatin Calcium 20 Mg Tablet) 20 mg PO BEDTIME [facility] Last Admin: 03/22/25 20:36 Dose: 20 mg Documented By: JHOANA Baclofen (Baclofen 10 Mg Tablet) 5 mg PO Q8H PRN PRN Reason: Muscle Spasm Last Admin: 03/23/25 02:13 Dose: 5 mg Documented By: JHOANA Bisacodyl (Bisacodyl 10 Mg Supp.Rect) 10 mg ID DAILY PRN PRN Reason: Constipation Calcium Carbonate (Calcium Carbonate 750 Mg Tab.Chew) 750 mg PO Q4H PRN PRN Reason: Heartburn Ceftriaxone Sodium (Ceftriaxone Sodium 2 Gm Vial) 2 gm IVPUSH Q24H [facility] Last Admin: 03/22/25 16:47 Dose: 2 gm Documented By: ELBA Cyclobenzaprine HCl (Cyclobenzaprine Hcl 5 Mg Tablet) 5 mg PO BID [facility] Last Admin: 03/23/25 08:10 Dose: 5 mg Documented By: KHAI Dextrose (Dextrose 50 % 25 Gm/50 Ml Syringe) 25 gm IVPUSH Q15M PRN; Protocol PRN Reason: per Hypoglycemia Standing Ord. Duloxetine HCl (Duloxetine Hcl 30 Mg Capsule.Dr) 30 mg PO DAILY [facility] Last Admin: 03/23/25 08:09 Dose: 30 mg Documented By: KHAI Furosemide (Furosemide 20 Mg Tablet) 20 mg PO DAILY [facility]; Protocol On Hold: 03/23/25 08:46 Last Admin: 03/23/25 08:09 Dose: 20 mg Documented By: KHAI Glucose (Glucose Gel 15 Gm Gel..Gram.) 15 gm PO Q15M PRN; Protocol PRN Reason: per Hypoglycemia Standing Ord. Metronidazole (Flagyl) 500 mg in 100 mls @ 100 mls/hr IV Q8H [facility] Last Infusion: 03/23/25 10:34 Dose: Infused Documented By: KATHRINE Insulin Human Lispro (Insulin Lispro 100 Unit/Ml 3 Ml Vial) 0 unit SUBCUT QIDACHS [facility]; Protocol Last Admin: 03/23/25 11:37 Dose: Not Given Documented By: KATHRINE Non-Admin Reason: No Insulin Coverage Lidocaine (Lidocaine 4 % Patch Adh..Patch) 2 patch TRANSDERMA DAILY [facility]; Protocol Last Admin: 03/23/25 08:14 Dose: Not Given Documented By: KHAI Non-Admin Reason: Patient Refused Loratadine (Loratadine 10 Mg Tablet) 10 mg PO DAILY [facility] Last Admin: 03/23/25 08:10 Dose: 10 mg Documented By: KHAI Magnesium Hydroxide (Milk Of Magnesia 30 Ml Oral.Susp) 30 ml PO DAILY PRN PRN Reason: Constipation Magnesium Hydroxide (Milk Of Magnesia 30 Ml Oral.Susp) 30 ml PO DAILY PRN PRN Reason: Constipation Melatonin (Melatonin 3 Mg Tablet) 6 mg PO BEDTIME PRN PRN Reason: Insomnia Last Admin: 03/23/25 02:13 Dose: 6 mg Documented By: JHOANA Comments: promote sleep Metoprolol Succinate (Metoprolol Succinate Er 100 Mg Tab.Er.24h) 100 mg PO DAILY [facility]; Protocol Last Admin: 03/23/25 08:09 Dose: 100 mg Documented By: KHAI Montelukast Sodium (Montelukast Sodium 10 Mg Tablet) 10 mg PO BEDTIME [facility] Last Admin: 03/22/25 20:36 Dose: 10 mg Documented By: JHOANA Multivitamins/Vitamin C (Multivitamin Tablet) 1 tab PO DAILY [facility] Last Admin: 03/23/25 08:09 Dose: 1 tab Documented By: KHAI Naloxone HCl (Naloxone Hcl Nasal 4 Mg [place]) 4 mg NOSTRILALT Q3M PRN PRN Reason: Opioid Overdose Olanzapine (Olanzapine 5 Mg Tablet) 5 mg PO BEDTIME [facility] On Hold: 03/23/25 08:46 Last Admin: 03/22/25 20:39 Dose: 5 mg Documented By: JHOANA Omeprazole (Omeprazole 20 Mg Capsule.Dr) 20 mg PO DAILY@0630 [facility] Last Admin: 03/23/25 05:34 Dose: Not Given Documented By: JHOAAN Non-Admin Reason: Patient Refused Oxycodone HCl (Oxycodone Hcl Immed Release 5 Mg Tablet) 5 mg PO DAILY@1700 [facility] On Hold: 03/23/25 08:46 Last Admin: 03/22/25 16:15 Dose: 5 mg Documented By: ELBA Oxycodone HCl (Oxycodone Hcl Immed Release 5 Mg Tablet) 5 mg PO Q8H PRN On Hold: 03/23/25 08:46 PRN Reason: Pain, Severe (Pain Scale 7-10) Last Admin: 03/21/25 12:31 Dose: 5 mg Documented By: KHAI Oxycodone HCl (Oxycodone Hcl Er 10 Mg Tab.Er.12h) 20 mg PO BID@0900,2100 [facility] On Hold: 03/23/25 08:46 Last Admin: 03/23/25 08:10 Dose: 20 mg Documented By: KHAI Polyethylene Glycol (Polyethylene Glycol 3350 17 Gm Powd.Pack) 17 gm PO DAILY [facility] Last Admin: 03/23/25 08:09 Dose: 17 gm Documented By: KHAI Sodium Biphosphate/Sodium Phosphate (Sodium Phosphate,[place]-Dibasic 133 Ml Enema) 118 ml ID DAILY PRN PRN Reason: Constipation Sodium Chloride (0.9 % Sodium Chloride Flush 3 Ml Syringe) 3 ml IVFLUSH QSHIFT [facility] Last Admin: 03/23/25 08:11 Dose: Not Given Documented By: KHAI Non-Admin Reason: IV Running Labs 03/23/25 10:17 03/23/25 11:49 Labs: Laboratory Results - last 24 hr 03/22/25 03/22/25 03/22/25 16:23 19:43 21:48 MCV MCH MCHC RDW Plt Count MPV Absolute Nucleated RBC Nucleated RBC % (auto) VBG pH VBG pCO2 VBG pO2 VBG HCO3 VBG O2 Saturation VBG Base Excess Anion Gap Estim Creat Clear Calc Estimated GFR POC Glucose 178 H 138 H 126 H Random Glucose Calcium Total Bilirubin AST ALT Alkaline Phosphatase Ammonia Total Protein Albumin 03/23/25 03/23/25 03/23/25 07:15 10:17 10:24 MCV 81.7 MCH 25.6 L MCHC 31.3 RDW 15.9 Plt Count 396 MPV 9.7 Absolute Nucleated RBC 0.000 Nucleated RBC % (auto) 0.0 VBG pH 7.55 H VBG pCO2 33 VBG pO2 56 VBG HCO3 29 H VBG O2 Saturation 87.0 VBG Base Excess 7.3 Anion Gap Estim Creat Clear Calc Estimated GFR POC Glucose 119 H Random Glucose Calcium Total Bilirubin AST ALT Alkaline Phosphatase Ammonia 17 Total Protein Albumin 03/23/25 03/23/25 11:05 11:49 MCV MCH MCHC RDW Plt Count MPV Absolute Nucleated RBC Nucleated RBC % (auto) VBG pH VBG pCO2 VBG pO2 VBG HCO3 VBG O2 Saturation VBG Base Excess Anion Gap 14 Estim Creat Clear Calc 56.3 Estimated GFR > 60 POC Glucose 140 H Random Glucose 127 H Calcium 9.2 Total Bilirubin 0.3 AST 25 ALT 13 Alkaline Phosphatase 172 H Ammonia Total Protein 7.2 Albumin 3.0 L Procedures Date of Service Date of Service: 03/23/25 Progress Note: A&P Assessment and plan (1) Acute cholecystitis: Status: Acute Assessment and Plan: No fever, no leukocytosis, tolerating diet Abdomen remained soft and benign Has been drowsy all day Continue current care Antibiotics IR cholecystostomy if with worsening Time Spent With Patient Time: Total time managing care of this patient today ____ minutes. Quality Stroke Does the patient have a stroke diagnosis?: No VTE Prior VTE?: No VTE Risk Level:: Medical - moderate - high VTE Device Contraindication: Treatment Not Indicated VTE Drug Contraindication: N/A - Med Ordered
[2025-03-23 16:37] LABS: Glucose, Whole Blood 151 mg/dL (60-115)
[2025-03-23 19:45] VITALS: BP 158/60; PULSE 85; RESP 18; TEMP 36.3; O2SAT 96
[2025-03-23 20:00] VITALS: BP 158/60; PULSE 85; RESP 18; TEMP 36.3; O2SAT 96
[2025-03-23 20:40] LABS: Glucose, Whole Blood 121 mg/dL (60-115)
[2025-03-24] MEDS: metroNIDAZOLE/NS 500 MG/100 ML PIGGYBACK 100 MG IV ×3 (01:50→17:24)
[2025-03-24 03:19] VITALS: BP 141/39; PULSE 89; RESP 18; TEMP 36.1; O2SAT 96
--- NOTE | 2025-03-24 07:43 | HO.PM.IMPN ---
Subjective Subjective Date of Service: 03/24/25 Interval History: acute cholecystitis,dementia Review of Systems seems more awake encourged Review of Systems: Yes all other systems are reviewed and are negative Physical Exam Exam: Exam: poor insight, no acute distress. abdomen :soft and nontender to deep palpation,has epigastric disconfort, nondistended chest: cta , no rales or wheezin cvs:rrr ,s1s2 heard Vital Signs: Vital Signs: Last Vital Signs Temp 97.0 F 03/24/25 03:19 Pulse 89 03/24/25 03:19 Resp 18 03/24/25 03:19 BP 141/39 H 03/24/25 03:19 Pulse Ox 96 03/24/25 03:19 O2 Del Method Room Air 03/24/25 03:19 O2 Flow Rate 2 03/20/25 03:02 BMI result Body Mass Index 33.0 Objective Data Active Medications Acetaminophen (Acetaminophen 325 Mg Tablet) 650 mg PO Q6H PRN PRN Reason: Pain, Mild 1-3,fever,headache Last Admin: 03/21/25 22:42 Dose: 650 mg Documented By: INESSA Amlodipine Besylate (Amlodipine Besylate 10 Mg Tablet) 10 mg PO BEDTIME [facility]; Protocol Last Admin: 03/23/25 22:02 Dose: Not Given Documented By: TIMUR Non-Admin Reason: very sleepy Apixaban (Apixaban 5 Mg Tablet) 5 mg PO BID [facility] Last Admin: 03/23/25 22:02 Dose: Not Given Documented By: TIMUR Non-Admin Reason: pt very sleepy Atorvastatin Calcium (Atorvastatin Calcium 20 Mg Tablet) 20 mg PO BEDTIME [facility] Last Admin: 03/23/25 22:02 Dose: Not Given Documented By: TIMUR Non-Admin Reason: pt very sleepy still Baclofen (Baclofen 10 Mg Tablet) 5 mg PO Q8H PRN PRN Reason: Muscle Spasm Last Admin: 03/23/25 02:13 Dose: 5 mg Documented By: JHOANA Bisacodyl (Bisacodyl 10 Mg Supp.Rect) 10 mg [place] DAILY PRN PRN Reason: Constipation Calcium Carbonate (Calcium Carbonate 750 Mg Tab.Chew) 750 mg PO Q4H PRN PRN Reason: Heartburn Ceftriaxone Sodium (Ceftriaxone Sodium 2 Gm Vial) 2 gm IVPUSH Q24H [facility] Last Admin: 03/23/25 17:20 Dose: 2 gm Documented By: KATHRINE Cyclobenzaprine HCl (Cyclobenzaprine Hcl 5 Mg Tablet) 5 mg PO BID [facility] Last Admin: 03/23/25 22:03 Dose: Not Given Documented By: TIMUR Non-Admin Reason: pt remains sleepy Dextrose (Dextrose 50 % 25 Gm/50 Ml Syringe) 25 gm IVPUSH Q15M PRN; Protocol PRN Reason: per Hypoglycemia Standing Ord. Duloxetine HCl (Duloxetine Hcl 30 Mg Capsule.Dr) 30 mg PO DAILY [facility] Last Admin: 03/23/25 08:09 Dose: 30 mg Documented By: KHAI Furosemide (Furosemide 20 Mg Tablet) 20 mg PO DAILY [facility]; Protocol On Hold: 03/23/25 08:46 Last Admin: 03/23/25 08:09 Dose: 20 mg Documented By: KHAI Glucose (Glucose Gel 15 Gm Gel..Gram.) 15 gm PO Q15M PRN; Protocol PRN Reason: per Hypoglycemia Standing Ord. Metronidazole (Flagyl) 500 mg in 100 mls @ 100 mls/hr IV Q8H [facility] Last Infusion: 03/24/25 02:52 Dose: Infused Documented By: TIMUR Insulin Human Lispro (Insulin Lispro 100 Unit/Ml 3 Ml Vial) 0 unit SUBCUT QIDACHS [facility]; Protocol Last Admin: 03/23/25 20:33 Dose: Not Given Documented By: TIMUR Non-Admin Reason: No Insulin Coverage Comments: poc 121 Lidocaine (Lidocaine 4 % Patch Adh..Patch) 2 patch TRANSDERMA DAILY [facility]; Protocol Last Admin: 03/23/25 08:14 Dose: Not Given Documented By: KHAI Non-Admin Reason: Patient Refused Loratadine (Loratadine 10 Mg Tablet) 10 mg PO DAILY [facility] Last Admin: 03/23/25 08:10 Dose: 10 mg Documented By: KHAI Magnesium Hydroxide (Milk Of Magnesia 30 Ml Oral.Susp) 30 ml PO DAILY PRN PRN Reason: Constipation Magnesium Hydroxide (Milk Of Magnesia 30 Ml Oral.Susp) 30 ml PO DAILY PRN PRN Reason: Constipation Melatonin (Melatonin 3 Mg Tablet) 6 mg PO BEDTIME PRN PRN Reason: Insomnia Last Admin: 03/23/25 02:13 Dose: 6 mg Documented By: JHOANA Comments: promote sleep Metoprolol Succinate (Metoprolol Succinate Er 100 Mg Tab.Er.24h) 100 mg PO DAILY [facility]; Protocol Last Admin: 03/23/25 08:09 Dose: 100 mg Documented By: KHAI Montelukast Sodium (Montelukast Sodium 10 Mg Tablet) 10 mg PO BEDTIME [facility] Last Admin: 03/23/25 22:03 Dose: Not Given Documented By: TIMUR Non-Admin Reason: remains sleepy Multivitamins/Vitamin C (Multivitamin Tablet) 1 tab PO DAILY [facility] Last Admin: 03/23/25 08:09 Dose: 1 tab Documented By: KHAI Naloxone HCl (Naloxone Hcl Nasal 4 Mg [place]) 4 mg NOSTRILALT Q3M PRN PRN Reason: Opioid Overdose Olanzapine (Olanzapine 5 Mg Tablet) 5 mg PO BEDTIME [facility] On Hold: 03/23/25 08:46 Last Admin: 03/22/25 20:39 Dose: 5 mg Documented By: JHOANA Omeprazole (Omeprazole 20 Mg Capsule.Dr) 20 mg PO DAILY@0630 [facility] Last Admin: 03/23/25 05:34 Dose: Not Given Documented By: JHOANA Non-Admin Reason: Patient Refused Oxycodone HCl (Oxycodone Hcl Immed Release 5 Mg Tablet) 5 mg PO DAILY@1700 [facility] On Hold: 03/23/25 08:46 Last Admin: 03/22/25 16:15 Dose: 5 mg Documented By: ELBA Oxycodone HCl (Oxycodone Hcl Immed Release 5 Mg Tablet) 5 mg PO Q8H PRN On Hold: 03/23/25 08:46 PRN Reason: Pain, Severe (Pain Scale 7-10) Last Admin: 03/21/25 12:31 Dose: 5 mg Documented By: KHAI Oxycodone HCl (Oxycodone Hcl Er 10 Mg Tab.Er.12h) 20 mg PO BID@0900,2100 [facility] On Hold: 03/23/25 08:46 Last Admin: 03/23/25 08:10 Dose: 20 mg Documented By: KHAI Polyethylene Glycol (Polyethylene Glycol 3350 17 Gm Powd.Pack) 17 gm PO DAILY [facility] Last Admin: 03/23/25 08:09 Dose: 17 gm Documented By: KHAI Sodium Biphosphate/Sodium Phosphate (Sodium Phosphate,[place]-Dibasic 133 Ml Enema) 118 ml CO DAILY PRN PRN Reason: Constipation Sodium Chloride (0.9 % Sodium Chloride Flush 3 Ml Syringe) 3 ml IVFLUSH QSHIFT [facility] Last Admin: 03/23/25 08:11 Dose: Not Given Documented By: KHAI Non-Admin Reason: IV Running Labs 03/23/25 10:17 03/23/25 11:49 Labs: Laboratory Results - last 24 hr 03/23/25 03/23/25 03/23/25 10:17 10:24 11:05 MCV 81.7 MCH 25.6 L MCHC 31.3 RDW 15.9 Plt Count 396 MPV 9.7 Absolute Nucleated RBC 0.000 Nucleated RBC % (auto) 0.0 VBG pH 7.55 H VBG pCO2 33 VBG pO2 56 VBG HCO3 29 H VBG O2 Saturation 87.0 VBG Base Excess 7.3 Anion Gap Estim Creat Clear Calc Estimated GFR POC Glucose 140 H Random Glucose Calcium Total Bilirubin AST ALT Alkaline Phosphatase Ammonia 17 Total Protein Albumin 03/23/25 03/23/25 03/23/25 11:49 16:28 20:31 MCV MCH MCHC RDW Plt Count MPV Absolute Nucleated RBC Nucleated RBC % (auto) VBG pH VBG pCO2 VBG pO2 VBG HCO3 VBG O2 Saturation VBG Base Excess Anion Gap 14 Estim Creat Clear Calc 56.3 Estimated GFR > 60 POC Glucose 151 H 121 H Random Glucose 127 H Calcium 9.2 Total Bilirubin 0.3 AST 25 ALT 13 Alkaline Phosphatase 172 H Ammonia Total Protein 7.2 Albumin 3.0 L Assessment and Plan (1) Acute cholecystitis: Status: Acute Assessment and Plan: 79F PMH DM, HTN, pafib, copd, alzheimers dementia, hld, cholelithiasis with gallstone pancreatitis treated conservatively 12/2024, retirement resident sent in for agitation, elevated bp, hypoglycemia htn/ elevated blood pressure Likely related to chronic pain Continue Toprol added amlodipine bp much improved, continue to monitor Diabetes with hypoglycemia: improving Likely related to ongoing sulfonylurea use despite worsening appetite Hold diabetes meds, monitor glucose a1c 6.7 now elevated will use sliding scale, on dc likely metformin only FTT, worsening appetite CT abd with some concern for acute cholecystisis vs hepatocellular disease exam benign ?hepatic congestion - echo -seems fine ef:68% acute cholecystitis -> gen surgery eval: rec antibiotics if does not improving consider surgery. Alzheimer dementia -has somloscent hold psych meds and avoid sedative meds vbg-ph seems fine, cmp fine ct head:1. No acute intracranial abnormality. 2. Age-related cerebral and cerebellar volume loss, and moderate changes of small vessel ischemia. Stable Paroxysmal AFib Metoprolol, Eliquis DVT prophylaxis-Eliquis DNR/DNI reason for continued hospitalization:changing to inpatient as work up for cause of patients FTT/lack of appetite ,acute cholecystitis-with IV antibiotic, patient still has epigastric disconfort/low po intake . still ongoing and cannot be done safely as outpatient due to concern for hypoglycemia her daughter updated in detail. Quality Stroke Does the patient have a stroke diagnosis?: No VTE Prior VTE?: No VTE Risk Level:: Medical - moderate - high VTE Device Contraindication: Treatment Not Indicated VTE Drug Contraindication: N/A - Med Ordered
[2025-03-24 07:48] LABS: Glucose, Whole Blood 153 mg/dL (60-115)
[2025-03-24 07:53] VITALS: BP 139/68; PULSE 99; RESP 16; TEMP 36.3; O2SAT 93
[2025-03-24] MEDS: Metoprolol Succinate ER 100 MG TAB.ER.24H PO (07:58)
[2025-03-24] MEDS: Lidocaine 4 % Patch ADH..PATCH 2 PATCH TRANSDERMA (07:59)
[2025-03-24] MEDS: 0.9 % Sodium Chloride Flush 3 ML SYRINGE IVFLUSH ×2 (08:00→15:37)
[2025-03-24] MEDS: oxyCODONE HCl Immed Release 5 MG TABLET PO ×2 (08:28→13:51)
[2025-03-24 11:26] LABS: Glucose, Whole Blood 174 mg/dL (60-115)
[2025-03-24 15:24] VITALS: BP 141/82; PULSE 84; RESP 16; TEMP 36.7; O2SAT 93
[2025-03-24] MEDS: Dextrose 5 % and Lactated Ring 1,000 ML 80 ML IVCONT (15:37)
[2025-03-24 16:19] LABS: Glucose, Whole Blood 173 mg/dL (60-115)
[2025-03-24 20:00] VITALS: BP 140/39; PULSE 68; RESP 18; TEMP 36.2; O2SAT 94
[2025-03-24 21:30] LABS: Glucose, Whole Blood 212 mg/dL (60-115)
[2025-03-25] MEDS: metroNIDAZOLE/NS 500 MG/100 ML PIGGYBACK 100 MG IV ×3 (02:10→17:31)
[2025-03-25 03:36] VITALS: BP 149/50; PULSE 80; RESP 18; TEMP 36.6; O2SAT 93
[2025-03-25] MEDS: Dextrose 5 % and Lactated Ring 1,000 ML 80 ML IVCONT ×2 (05:23→16:44)
[2025-03-25 07:34] LABS: Glucose, Whole Blood 189 mg/dL (60-115)
[2025-03-25 07:36] VITALS: BP 132/60; PULSE 90; RESP 16; TEMP 37.3; O2SAT 92
[2025-03-25] MEDS: Lidocaine 4 % Patch ADH..PATCH 2 PATCH TRANSDERMA (08:13)
[2025-03-25] MEDS: oxyCODONE HCl Immed Release 5 MG TABLET PO ×2 (08:13→16:44)
[2025-03-25] MEDS: Metoprolol Succinate ER 100 MG TAB.ER.24H PO (08:13)
[2025-03-25 11:35] LABS: Glucose, Whole Blood 197 mg/dL (60-115)
--- NOTE | 2025-03-25 13:04 | HO.PM.IMPN ---
Subjective Subjective Date of Service: 03/25/25 Interval History: acute cholecystis Review of Systems more awake po intake still low side Review of Systems: Yes all other systems are reviewed and are negative Physical Exam Exam: Exam: poor insight, no acute distress. abdomen :soft and nontender to deep palpation,has epigastric disconfort, nondistended chest: cta , no rales or wheezin cvs:rrr ,s1s2 heard Vital Signs: Vital Signs: Last Vital Signs Temp 99.2 F 03/25/25 07:36 Pulse 90 03/25/25 07:36 Resp 16 03/25/25 07:36 BP 132/60 03/25/25 07:36 Pulse Ox 92 03/25/25 07:36 O2 Del Method Room Air 03/25/25 07:36 O2 Flow Rate 2 03/20/25 03:02 BMI result Body Mass Index 33.0 Objective Data Active Medications Acetaminophen (Acetaminophen 325 Mg Tablet) 650 mg PO Q6H PRN PRN Reason: Pain, Mild 1-3,fever,headache Last Admin: 03/21/25 22:42 Dose: 650 mg Documented By: INESSA Amlodipine Besylate (Amlodipine Besylate 10 Mg Tablet) 10 mg PO BEDTIME [facility]; Protocol Last Admin: 03/24/25 20:06 Dose: 10 mg Documented By: TIMUR Apixaban (Apixaban 5 Mg Tablet) 5 mg PO BID [facility] [place] Last Admin: 03/25/25 08:13 Dose: 5 mg Documented By: ELAB Atorvastatin Calcium (Atorvastatin Calcium 20 Mg Tablet) 20 mg PO BEDTIME [facility] Last Admin: 03/24/25 20:05 Dose: 20 mg Documented By: TIMUR Baclofen (Baclofen 10 Mg Tablet) 5 mg PO Q8H PRN PRN Reason: Muscle Spasm Last Admin: 03/23/25 02:13 Dose: 5 mg Documented By: JHOANA Bisacodyl (Bisacodyl 10 Mg Supp.Rect) 10 mg [place] DAILY PRN PRN Reason: Constipation Calcium Carbonate (Calcium Carbonate 750 Mg Tab.Chew) 750 mg PO Q4H PRN PRN Reason: Heartburn Ceftriaxone Sodium (Ceftriaxone Sodium 2 Gm Vial) 2 gm IVPUSH Q24H [facility] Last Admin: 03/24/25 17:24 Dose: 2 gm Documented By: ELBA Cyclobenzaprine HCl (Cyclobenzaprine Hcl 5 Mg Tablet) 5 mg PO BID [facility] [place] Last Admin: 03/25/25 08:12 Dose: 5 mg Documented By: ELBA Dextrose (Dextrose 50 % 25 Gm/50 Ml Syringe) 25 gm IVPUSH Q15M PRN; Protocol PRN Reason: per Hypoglycemia Standing Ord. Duloxetine HCl (Duloxetine Hcl 30 Mg Capsule.Dr) 30 mg PO DAILY [facility] [place] Last Admin: 03/25/25 08:13 Dose: 30 mg Documented By: ELBA Furosemide (Furosemide 20 Mg Tablet) 20 mg PO DAILY [facility] [place]; Protocol On Hold: 03/23/25 08:46 Last Admin: 03/23/25 08:09 Dose: 20 mg Documented By: KHAI Glucose (Glucose Gel 15 Gm Gel..Gram.) 15 gm PO Q15M PRN; Protocol PRN Reason: per Hypoglycemia Standing Ord. Metronidazole (Flagyl) 500 mg in 100 mls @ 100 mls/hr IV Q8H [facility] [place] Last Infusion: 03/25/25 11:54 Dose: Infused Documented By: ELBA Dextrose/Lactated Ringer's (D5lr) 1,000 mls @ 80 mls/hr IVCONT .[id number] [facility] [place] Last Admin: 03/25/25 05:23 Dose: 80 mls/hr Documented By: TIMUR Insulin Human Lispro (Insulin Lispro 100 Unit/Ml 3 Ml Vial) 0 unit SUBCUT QIDACHS [facility] [place]; Protocol Last Admin: 03/25/25 11:40 Dose: 2 unit Documented By: ELBA Lidocaine (Lidocaine 4 % Patch Adh..Patch) 2 patch TRANSDERMA DAILY [facility] [place]; Protocol Last Admin: 03/25/25 08:13 Dose: 2 patch Documented By: ELBA Loratadine (Loratadine 10 Mg Tablet) 10 mg PO DAILY [facility] Last Admin: 03/25/25 08:13 Dose: 10 mg Documented By: ELBA Magnesium Hydroxide (Milk Of Magnesia 30 Ml Oral.Susp) 30 ml PO DAILY PRN PRN Reason: Constipation Magnesium Hydroxide (Milk Of Magnesia 30 Ml Oral.Susp) 30 ml PO DAILY PRN On Hold: 03/24/25 08:12 PRN Reason: Constipation Melatonin (Melatonin 3 Mg Tablet) 6 mg PO BEDTIME PRN PRN Reason: Insomnia Last Admin: 03/23/25 02:13 Dose: 6 mg Documented By: JHOANA Comments: promote sleep Metoprolol Succinate (Metoprolol Succinate Er 100 Mg Tab.Er.24h) 100 mg PO DAILY [facility] [place]; Protocol Last Admin: 03/25/25 08:13 Dose: 100 mg Documented By: ELBA Montelukast Sodium (Montelukast Sodium 10 Mg Tablet) 10 mg PO BEDTIME [facility] [place] Last Admin: 03/24/25 20:07 Dose: 10 mg Documented By: TIMUR Multivitamins/Vitamin C (Multivitamin Tablet) 1 tab PO DAILY [facility] Last Admin: 03/25/25 08:13 Dose: 1 tab Documented By: ELBA Naloxone HCl (Naloxone Hcl Nasal 4 Mg [place]) 4 mg NOSTRILALT Q3M PRN PRN Reason: Opioid Overdose Olanzapine (Olanzapine 5 Mg Tablet) 5 mg PO BEDTIME [facility] [place] Last Admin: 03/24/25 20:06 Dose: 5 mg Documented By: TIMUR Omeprazole (Omeprazole 20 Mg Capsule.Dr) 20 mg PO DAILY@0630 [facility] [place] Last Admin: 03/25/25 08:13 Dose: 20 mg Documented By: ELBA Oxycodone HCl (Oxycodone Hcl Immed Release 5 Mg Tablet) 5 mg PO DAILY@1700 [facility] [place] On Hold: 03/23/25 08:46 Last Admin: 03/22/25 16:15 Dose: 5 mg Documented By: ELBA Oxycodone HCl (Oxycodone Hcl Immed Release 5 Mg Tablet) 5 mg PO Q8H PRN PRN Reason: Pain, Severe (Pain Scale 7-10) Last Admin: 03/25/25 08:13 Dose: 5 mg Documented By: ELBA Oxycodone HCl (Oxycodone Hcl Er 10 Mg Tab.Er.12h) 20 mg PO BID@0900,2100 [facility] [place] [place] On Hold: 03/23/25 08:46 Last Admin: 03/23/25 08:10 Dose: 20 mg Documented By: KHAI Polyethylene Glycol (Polyethylene Glycol 3350 17 Gm Powd.Pack) 17 gm PO DAILY [facility] On Hold: 03/24/25 08:12 Last Admin: 03/24/25 08:13 Dose: Not Given Documented By: ELBA Non-Admin Reason: hold per md Sodium Biphosphate/Sodium Phosphate (Sodium Phosphate,[place]-Dibasic 133 Ml Enema) 118 ml [place] DAILY PRN PRN Reason: Constipation Sodium Chloride (0.9 % Sodium Chloride Flush 3 Ml Syringe) 3 ml IVFLUSH QSHIFT [facility] Last Admin: 03/25/25 08:14 Dose: Not Given Documented By: ELBA Non-Admin Reason: IV Running Labs 03/23/25 10:17 03/23/25 11:49 Labs: Laboratory Results - last 24 hr 03/24/25 03/24/25 03/25/25 16:13 21:26 07:28 POC Glucose 173 H 212 H 189 H 03/25/25 11:28 POC Glucose 197 H Assessment and Plan (1) Acute cholecystitis: Status: Acute Assessment and Plan: 79F PMH DM, HTN, pafib, copd, alzheimers dementia, hld, cholelithiasis with gallstone pancreatitis treated conservatively 12/2024, skilled nursing resident sent in for agitation, elevated bp, hypoglycemia FTT, worsening appetite CT abd with some concern for acute cholecystisis vs hepatocellular disease exam benign ?hepatic congestion - echo -seems fine ef:68% acute cholecystitis -> gen surgery eval: rec antibiotics if does not improving consider surgery. htn: Likely related to chronic pain Continue Toprol , amlodipine bp much improved, continue to monitor Diabetes with hypoglycemia: improving Likely related to ongoing sulfonylurea use despite worsening appetite Hold diabetes meds, monitor glucose a1c 6.7 now elevated will use sliding scale, on dc likely metformin only Alzheimer dementia -has somloscent hold psych meds and avoid sedative meds vbg-ph seems fine, cmp fine ct head:1. No acute intracranial abnormality. 2. Age-related cerebral and cerebellar volume loss, and moderate changes of small vessel ischemia. Stable Paroxysmal AFib Metoprolol, Eliquis DVT prophylaxis-Eliquis DNR/DNI reason for continued hospitalization:changing to inpatient as work up for cause of patients FTT/lack of appetite ,acute cholecystitis-with IV antibiotic, patient still has epigastric disconfort/low po intake . still ongoing and cannot be done safely as outpatient due to concern for hypoglycemia her daughter updated in detail. Quality Stroke Does the patient have a stroke diagnosis?: No VTE Prior VTE?: No VTE Risk Level:: Medical - moderate - high VTE Device Contraindication: Treatment Not Indicated VTE Drug Contraindication: N/A - Med Ordered
[2025-03-25 16:00] VITALS: BP 113/72; PULSE 87; RESP 16; TEMP 37.4; O2SAT 93
[2025-03-25 16:16] LABS: Glucose, Whole Blood 216 mg/dL (60-115)
--- NOTE | 2025-03-25 16:39 | PM.PNGS ---
Subjective Subjective Date of Service: 03/25/25 Interval history: Patient says that she is not very hungry says that she does have some abdominal discomfort but not able to isolate where. She has not been eating very much Physical Exam Vital Signs: Vital Signs: Last Vital Signs Temp 99.3 F 03/25/25 16:00 Pulse 87 03/25/25 16:00 Resp 16 03/25/25 16:00 BP 113/72 03/25/25 16:00 Pulse Ox 93 03/25/25 16:00 O2 Del Method Room Air 03/25/25 16:00 O2 Flow Rate 2 03/20/25 03:02 BMI result Body Mass Index 33.0 GI: Other: Abdomen is soft but she is tender in the right upper quadrant with some guarding. Objective Data Active Medications Acetaminophen (Acetaminophen 325 Mg Tablet) 650 mg PO Q6H PRN PRN Reason: Pain, Mild 1-3,fever,headache Last Admin: 03/21/25 22:42 Dose: 650 mg Documented By: INESSA Amlodipine Besylate (Amlodipine Besylate 10 Mg Tablet) 10 mg PO BEDTIME [facility]; Protocol Last Admin: 03/24/25 20:06 Dose: 10 mg Documented By: TIMUR Apixaban (Apixaban 5 Mg Tablet) 5 mg PO BID [facility] Last Admin: 03/25/25 08:13 Dose: 5 mg Documented By: ELBA Atorvastatin Calcium (Atorvastatin Calcium 20 Mg Tablet) 20 mg PO BEDTIME [facility] Last Admin: 03/24/25 20:05 Dose: 20 mg Documented By: TIMUR Baclofen (Baclofen 10 Mg Tablet) 5 mg PO Q8H PRN PRN Reason: Muscle Spasm Last Admin: 03/23/25 02:13 Dose: 5 mg Documented By: JHOANA Bisacodyl (Bisacodyl 10 Mg Supp.Rect) 10 mg IN DAILY PRN PRN Reason: Constipation Calcium Carbonate (Calcium Carbonate 750 Mg Tab.Chew) 750 mg PO Q4H PRN PRN Reason: Heartburn Ceftriaxone Sodium (Ceftriaxone Sodium 2 Gm Vial) 2 gm IVPUSH Q24H [facility] Last Admin: 03/24/25 17:24 Dose: 2 gm Documented By: ELBA Cyclobenzaprine HCl (Cyclobenzaprine Hcl 5 Mg Tablet) 5 mg PO BID [facility] Last Admin: 03/25/25 08:12 Dose: 5 mg Documented By: ELBA Dextrose (Dextrose 50 % 25 Gm/50 Ml Syringe) 25 gm IVPUSH Q15M PRN; Protocol PRN Reason: per Hypoglycemia Standing Ord. Duloxetine HCl (Duloxetine Hcl 30 Mg Capsule.Dr) 30 mg PO DAILY [facility] Last Admin: 03/25/25 08:13 Dose: 30 mg Documented By: ELBA Furosemide (Furosemide 20 Mg Tablet) 20 mg PO DAILY [facility]; Protocol On Hold: 03/23/25 08:46 Last Admin: 03/23/25 08:09 Dose: 20 mg Documented By: KHAI Glucose (Glucose Gel 15 Gm Gel..Gram.) 15 gm PO Q15M PRN; Protocol PRN Reason: per Hypoglycemia Standing Ord. Metronidazole (Flagyl) 500 mg in 100 mls @ 100 mls/hr IV Q8H [facility] Last Infusion: 03/25/25 11:54 Dose: Infused Documented By: ELBA Dextrose/Lactated Ringer's (D5lr) 1,000 mls @ 80 mls/hr IVCONT .[id number] [facility] Last Admin: 03/25/25 05:23 Dose: 80 mls/hr Documented By: TIMUR Insulin Human Lispro (Insulin Lispro 100 Unit/Ml 3 Ml Vial) 0 unit SUBCUT QIDACHS [facility]; Protocol Last Admin: 03/25/25 11:40 Dose: 2 unit Documented By: ELBA Lidocaine (Lidocaine 4 % Patch Adh..Patch) 2 patch TRANSDERMA DAILY [facility]; Protocol Last Admin: 03/25/25 08:13 Dose: 2 patch Documented By: ELBA Loratadine (Loratadine 10 Mg Tablet) 10 mg PO DAILY [facility] Last Admin: 03/25/25 08:13 Dose: 10 mg Documented By: ELBA Magnesium Hydroxide (Milk Of Magnesia 30 Ml Oral.Susp) 30 ml PO DAILY PRN PRN Reason: Constipation Melatonin (Melatonin 3 Mg Tablet) 6 mg PO BEDTIME PRN PRN Reason: Insomnia Last Admin: 03/23/25 02:13 Dose: 6 mg Documented By: JHOANA Comments: promote sleep Metoprolol Succinate (Metoprolol Succinate Er 100 Mg Tab.Er.24h) 100 mg PO DAILY [facility]; Protocol Last Admin: 03/25/25 08:13 Dose: 100 mg Documented By: ELBA Montelukast Sodium (Montelukast Sodium 10 Mg Tablet) 10 mg PO BEDTIME [facility] Last Admin: 03/24/25 20:07 Dose: 10 mg Documented By: TIMUR Multivitamins/Vitamin C (Multivitamin Tablet) 1 tab PO DAILY [facility] Last Admin: 03/25/25 08:13 Dose: 1 tab Documented By: ELBA Naloxone HCl (Naloxone Hcl Nasal 4 Mg [place]) 4 mg NOSTRILALT Q3M PRN PRN Reason: Opioid Overdose Olanzapine (Olanzapine 5 Mg Tablet) 5 mg PO BEDTIME [facility] Last Admin: 03/24/25 20:06 Dose: 5 mg Documented By: TIMUR Omeprazole (Omeprazole 20 Mg Capsule.Dr) 20 mg PO DAILY@0630 [facility] Last Admin: 03/25/25 08:13 Dose: 20 mg Documented By: ELBA Oxycodone HCl (Oxycodone Hcl Immed Release 5 Mg Tablet) 5 mg PO DAILY@1700 [facility] On Hold: 03/23/25 08:46 Last Admin: 03/22/25 16:15 Dose: 5 mg Documented By: ELBA Oxycodone HCl (Oxycodone Hcl Immed Release 5 Mg Tablet) 5 mg PO Q8H PRN PRN Reason: Pain, Severe (Pain Scale 7-10) Last Admin: 03/25/25 08:13 Dose: 5 mg Documented By: ELBA Oxycodone HCl (Oxycodone Hcl Er 10 Mg Tab.Er.12h) 20 mg PO BID@0900,2100 [facility] On Hold: 03/23/25 08:46 Last Admin: 03/23/25 08:10 Dose: 20 mg Documented By: KHAI Pharmacy Consult (Consult Rx Parenteral Nutrition Ordering) 1 each MISCELLANE DAILY PRN PRN Reason: Consult order Polyethylene Glycol (Polyethylene Glycol 3350 17 Gm Powd.Pack) 17 gm PO DAILY [facility] On Hold: 03/24/25 08:12 Last Admin: 03/24/25 08:13 Dose: Not Given Documented By: ELBA Non-Admin Reason: hold per Sodium Biphosphate/Sodium Phosphate (Sodium Phosphate,[place]-Dibasic 133 Ml Enema) 118 ml IN DAILY PRN PRN Reason: Constipation Sodium Chloride (0.9 % Sodium Chloride Flush 3 Ml Syringe) 3 ml IVFLUSH QSHIFT [facility] Last Admin: 03/25/25 15:30 Dose: Not Given Documented By: ELBA Non-Admin Reason: IV Running Labs 03/23/25 10:17 03/23/25 11:49 Labs: Laboratory Results - last 24 hr 03/24/25 03/25/25 03/25/25 21:26 07:28 11:28 POC Glucose 212 H 189 H 197 H 03/25/25 16:03 POC Glucose 216 H Procedures Date of Service Date of Service: 03/25/25 Progress Note: A&P Assessment and plan (1) Acute cholecystitis: Status: Acute Assessment and Plan: 79-year-old female with multiple medical problems issues with dementia. Tolerating some p.o. diet that is still not very well. Complaining of some abdominal pain. Question whether she has more biliary colic than true cholecystitis. She is not a good surgical candidate so would recommend cholecystostomy tube. Patient does have a gallbladder full of gallstones as documented by MRCP earlier this summer. This maybe contributing to her pain. If concern still for potential cholecystitis may consider getting a HIDA scan. Patient may not do as well with a cholecystostomy tube with her dementia and potential confusion. Time Spent With Patient Time: Total time managing care of this patient today ____ minutes. Quality Stroke Does the patient have a stroke diagnosis?: No VTE Prior VTE?: No VTE Risk Level:: Medical - moderate - high VTE Device Contraindication: Treatment Not Indicated VTE Drug Contraindication: N/A - Med Ordered
[2025-03-25 19:35] LABS: Glucose, Whole Blood 155 mg/dL (60-115)
[2025-03-25 20:00] VITALS: BP 145/66; PULSE 76; RESP 18; TEMP 36.6; O2SAT 92
[2025-03-26] MEDS: metroNIDAZOLE/NS 500 MG/100 ML PIGGYBACK 100 MG IV ×3 (01:46→17:33)
[2025-03-26 03:24] VITALS: BP 140/70; PULSE 87; RESP 18; TEMP 36.4; O2SAT 92
[2025-03-26] MEDS: Dextrose 5 % and Lactated Ring 1,000 ML 80 ML IVCONT (05:20)
[2025-03-26] MEDS: oxyCODONE HCl Immed Release 5 MG TABLET PO ×3 (05:21→16:15)
[2025-03-26 07:00] LABS: Hematocrit 39.7 % (37.0-47.0); Hemoglobin 12.3 g/dl (12.0-16.0); Mean Corpuscular HGB Conc 31.0 g/dl (31.0-35.0); Mean Corpuscular Hemoglobin 25.3 pg (27.0-33.0); Mean Corpuscular Volume 81.5 fL (80.0-98.0); NRBC Abs Auto 0.000 X10*3/uL (0.0-0.012); NRBC Pct Auto 0.0 /100WBC (0.0-0.2); Platelet Count 449 X10*3/uL (160-400); Red Blood Count 4.87 X10*6/uL (4.20-5.50); White Blood Count 11.4 X10*3/uL (4.8-10.8)
[2025-03-26 07:11] VITALS: BP 127/100; PULSE 100; RESP 16; TEMP 36.9; O2SAT 94
[2025-03-26 07:18] LABS: Anion Gap 11 (12-20); Blood Urea Nitrogen 9 mg/dL (9-16); Calcium 8.6 mg/dL (8.4-10.2); Carbon Dioxide 27 mmol/L (22-29); Chloride 105 mmol/L (96-108); Creatinine Clr Calc Pharmacy 68.3; Estimated Glomerular Filt Rate > 60; Magnesium 1.8 mg/dL (1.6-2.6); Potassium 3.2 mmol/L (3.3-5.1); Sodium 140 mmol/L (135-145)
[2025-03-26 07:44] LABS: Glucose, Whole Blood 226 mg/dL (60-115)
[2025-03-26] MEDS: Lidocaine 4 % Patch ADH..PATCH 2 PATCH TRANSDERMA (08:14)
[2025-03-26 08:15] VITALS: BP 127/100; PULSE 100
[2025-03-26] MEDS: Metoprolol Succinate ER 100 MG TAB.ER.24H PO (08:15)
[2025-03-26] MEDS: oxyCODONE HCl ER 10 MG TAB.ER.12H 20 MG PO ×2 (09:03→21:08)
--- NOTE | 2025-03-26 11:20 | MHC.CLN ---
F/U PATIENT WITH POOR PO INTAKE. PER MD, START PPN TODAY. REVIEWED LABS. COMMUNICATED WITH PHARMACY. RECOMMEND START PPN AT 50 ML PER HOUR TO PROVIDE 51 G PROTEIN, 120 G DEXTROSE, 612 KCALS. REPLETE LYTES NEEDED. CHECK TRIGLYCERIDES. SKIN WITH STAGE II PRESSURE INJURY TO COCCYX. DIET CONTINUES DIABETIC 1800 KCALS. FOLLOW FOR PPN TOLERANCE, PO INTAKE AND SKIN INTEGRITY.
[2025-03-26 11:33] LABS: Glucose, Whole Blood 227 mg/dL (60-115)
[2025-03-26 11:35] VITALS: BMI 33.0
--- NOTE | 2025-03-26 15:23 | PC.NURSE ---
patient is incontinent with purewick in place, no urine output from purewick yet this shift, bladder scanned at 1500 for 264ml, Dr. Miranda made aware, no need to bladder scan at this time per provider
[2025-03-26 16:00] VITALS: BP 125/58; PULSE 78; RESP 14; TEMP 36.6; O2SAT 94
--- NOTE | 2025-03-26 16:00 | MHC.CM.PN ---
PER ROUNDS PT MAY NEED HOSPICE ION THE [facility] HOME DC PLAN RETURN TO [facility]
[2025-03-26 16:21] LABS: Glucose, Whole Blood 211 mg/dL (60-115)
--- NOTE | 2025-03-26 18:25 | P.PNIM_ITS ---
Subjective Subjective Date of Service: 03/26/25 Interval History: acute cholecystis Review of Systems Review of Systems: Yes all other systems are reviewed and are negative Physical Exam 2 Exam: Exam: poor insight, no acute distress. abdomen :soft and nontender to deep palpation,has epigastric disconfort, nondistended chest: cta , no rales or wheezin cvs:rrr ,s1s2 heard Vital Signs: Vital Signs: Last Vital Signs Temp 98 F 03/26/25 16:00 Pulse 78 03/26/25 16:00 Resp 14 03/26/25 16:00 BP 125/58 L 03/26/25 16:00 Pulse Ox 94 03/26/25 16:00 O2 Del Method Room Air 03/26/25 16:00 O2 Flow Rate 2 03/20/25 03:02 BMI result Body Mass Index 33.0 Objective Data Active Medications Acetaminophen (Acetaminophen 325 Mg Tablet) 650 mg PO Q6H PRN PRN Reason: Pain, Mild 1-3,fever,headache Last Admin: 03/26/25 09:00 Dose: 650 mg Documented By: ADENIKE Amlodipine Besylate (Amlodipine Besylate 10 Mg Tablet) 10 mg PO BEDTIME [facility]; Protocol Last Admin: 03/25/25 20:05 Dose: 10 mg Documented By: ANTONIA Apixaban (Apixaban 5 Mg Tablet) 5 mg PO BID [facility] Last Admin: 03/26/25 08:15 Dose: 5 mg Documented By: BETSEY Atorvastatin Calcium (Atorvastatin Calcium 20 Mg Tablet) 20 mg PO BEDTIME [facility] Last Admin: 03/25/25 20:05 Dose: 20 mg Documented By: ANTONIA Baclofen (Baclofen 10 Mg Tablet) 5 mg PO Q8H PRN PRN Reason: Muscle Spasm Last Admin: 03/23/25 02:13 Dose: 5 mg Documented By: JHOANA Bisacodyl (Bisacodyl 10 Mg Supp.Rect) 10 mg [place] DAILY PRN PRN Reason: Constipation Calcium Carbonate (Calcium Carbonate 750 Mg Tab.Chew) 750 mg PO Q4H PRN PRN Reason: Heartburn Ceftriaxone Sodium (Ceftriaxone Sodium 2 Gm Vial) 2 gm IVPUSH Q24H [facility] Last Admin: 03/26/25 17:27 Dose: 2 gm Documented By: BETSEY Cyclobenzaprine HCl (Cyclobenzaprine Hcl 5 Mg Tablet) 5 mg PO BID [facility] Last Admin: 03/26/25 08:14 Dose: 5 mg Documented By: BETSEY Dextrose (Dextrose 50 % 25 Gm/50 Ml Syringe) 25 gm IVPUSH Q15M PRN; Protocol PRN Reason: per Hypoglycemia Standing Ord. Duloxetine HCl (Duloxetine Hcl 30 Mg Capsule.Dr) 30 mg PO DAILY [facility] Last Admin: 03/26/25 08:16 Dose: 30 mg Documented By: BETSEY Furosemide (Furosemide 20 Mg Tablet) 20 mg PO DAILY [facility]; Protocol On Hold: 03/23/25 08:46 Last Admin: 03/23/25 08:09 Dose: 20 mg Documented By: KHAI Glucose (Glucose Gel 15 Gm Gel..Gram.) 15 gm PO Q15M PRN; Protocol PRN Reason: per Hypoglycemia Standing Ord. Metronidazole (Flagyl) 500 mg in 100 mls @ 100 mls/hr IV Q8H [facility] Last Admin: 03/26/25 17:33 Dose: 100 mls/hr Documented By: BETSEY Nutrition (Parenteral) (Parenteral Nutrition) 1,200 mls @ 50 mls/hr IV .Q24H [facility]; Protocol Stop: 03/27/25 20:59 Insulin Human Lispro (Insulin Lispro 100 Unit/Ml 3 Ml Vial) 0 unit SUBCUT QIDACHS [facility]; Protocol Last Admin: 03/26/25 16:37 Dose: 4 unit Documented By: BETSEY Lidocaine (Lidocaine 4 % Patch Adh..Patch) 2 patch TRANSDERMA DAILY [facility]; Protocol Last Admin: 03/26/25 08:14 Dose: 2 patch Documented By: BETSEY Loratadine (Loratadine 10 Mg Tablet) 10 mg PO DAILY [facility] Last Admin: 03/26/25 08:15 Dose: 10 mg Documented By: BETSEY Magnesium Hydroxide (Milk Of Magnesia 30 Ml Oral.Susp) 30 ml PO DAILY PRN PRN Reason: Constipation Melatonin (Melatonin 3 Mg Tablet) 6 mg PO BEDTIME PRN PRN Reason: Insomnia Last Admin: 03/23/25 02:13 Dose: 6 mg Documented By: JHOANA Comments: promote sleep Metoprolol Succinate (Metoprolol Succinate Er 100 Mg Tab.Er.24h) 100 mg PO DAILY [facility]; Protocol Last Admin: 03/26/25 08:15 Dose: 100 mg Documented By: BETSEY Montelukast Sodium (Montelukast Sodium 10 Mg Tablet) 10 mg PO BEDTIME [facility] Last Admin: 03/25/25 20:04 Dose: 10 mg Documented By: ANTONIA Multivitamins/Vitamin C (Multivitamin Tablet) 1 tab PO DAILY [facility] Last Admin: 03/26/25 08:15 Dose: 1 tab Documented By: BETSEY Naloxone HCl (Naloxone Hcl Nasal 4 Mg [place]) 4 mg NOSTRILALT Q3M PRN PRN Reason: Opioid Overdose Olanzapine (Olanzapine 5 Mg Tablet) 5 mg PO BEDTIME [facility] Last Admin: 03/25/25 20:05 Dose: 5 mg Documented By: ANTONIA Omeprazole (Omeprazole 20 Mg Capsule.Dr) 20 mg PO DAILY@0630 [facility] Last Admin: 03/26/25 05:22 Dose: 20 mg Documented By: ANTONIA Ondansetron HCl (Ondansetron Hcl 4 Mg/2 Ml Vial) 4 mg IVPUSH Q6H PRN PRN Reason: Nausea and Vomiting Last Admin: 03/26/25 09:04 Dose: 4 mg Documented By: ADENIKE Oxycodone HCl (Oxycodone Hcl Immed Release 5 Mg Tablet) 5 mg PO DAILY@1700 [facility] Last Admin: 03/26/25 16:15 Dose: 5 mg Documented By: BETSEY Oxycodone HCl (Oxycodone Hcl Immed Release 5 Mg Tablet) 5 mg PO Q8H PRN PRN Reason: Pain, Severe (Pain Scale 7-10) Last Admin: 03/26/25 13:23 Dose: 5 mg Documented By: KHAI Oxycodone HCl (Oxycodone Hcl Er 10 Mg Tab.Er.12h) 20 mg PO BID@0900,2100 [facility] Last Admin: 03/26/25 09:03 Dose: 20 mg Documented By: ADENIKE Pharmacy Consult (Consult Rx Parenteral Nutrition Ordering) 1 each MISCELLANE DAILY PRN PRN Reason: Consult order Polyethylene Glycol (Polyethylene Glycol 3350 17 Gm Powd.Pack) 17 gm PO DAILY [facility] On Hold: 03/24/25 08:12 Last Admin: 03/24/25 08:13 Dose: Not Given Documented By: ELBA Non-Admin Reason: hold per Sodium Biphosphate/Sodium Phosphate (Sodium Phosphate,[place]-Dibasic 133 Ml Enema) 118 ml [place] DAILY PRN PRN Reason: Constipation Sodium Chloride (0.9 % Sodium Chloride Flush 3 Ml Syringe) 3 ml IVFLUSH QSHIFT [facility] Last Admin: 03/26/25 15:01 Dose: Not Given Documented By: BETSEY Non-Admin Reason: No Access Labs 03/26/25 06:06 03/26/25 06:06 Labs: Laboratory Results - last 24 hr 03/25/25 03/26/25 03/26/25 19:21 06:06 07:19 MCV 81.5 MCH 25.3 L MCHC 31.0 RDW 16.2 H Plt Count 449 H MPV 10.5 Absolute Nucleated RBC 0.000 Nucleated RBC % (auto) 0.0 Anion Gap 11 L Estim Creat Clear Calc 68.3 Estimated GFR > 60 POC Glucose 155 H 226 H Random Glucose 232 H Calcium 8.6 D Phosphorus 2.6 L Magnesium 1.8 03/26/25 03/26/25 11:29 16:14 MCV MCH MCHC RDW Plt Count MPV Absolute Nucleated RBC Nucleated RBC % (auto) Anion Gap Estim Creat Clear Calc Estimated GFR POC Glucose 227 H 211 H Random Glucose Calcium Phosphorus Magnesium Assessment and Plan (1) Acute cholecystitis: Status: Acute Assessment and Plan: 79F PMH DM, HTN, pafib, copd, alzheimers dementia, hld, cholelithiasis with gallstone pancreatitis treated conservatively 12/2024, senior care resident sent in for agitation, elevated bp, hypoglycemia FTT, worsening appetite CT abd with some concern for acute cholecystisis vs hepatocellular disease exam benign ?hepatic congestion - echo -seems fine ef:68% acute cholecystitis -> gen surgery eval: rec antibiotics if does not improving consider surgery. htn: Likely related to chronic pain Continue Toprol , amlodipine bp much improved, continue to monitor Diabetes with hypoglycemia: improving Likely related to ongoing sulfonylurea use despite worsening appetite Hold diabetes meds, monitor glucose a1c 6.7 now elevated will use sliding scale, on dc likely metformin only Alzheimer dementia -has somloscent hold psych meds and avoid sedative meds vbg-ph seems fine, cmp fine ct head:1. No acute intracranial abnormality. 2. Age-related cerebral and cerebellar volume loss, and moderate changes of small vessel ischemia. Stable Paroxysmal AFib Metoprolol, Eliquis DVT prophylaxis-Eliquis DNR/DNI reason for continued hospitalization:changing to inpatient as work up for cause of patients FTT/lack of appetite ,acute cholecystitis-with IV antibiotic, patient still has epigastric disconfort/low po intake . still ongoing and cannot be done safely as outpatient due to concern for hypoglycemia her daughter updated in detail. Quality Stroke Does the patient have a stroke diagnosis?: No VTE Prior VTE?: No VTE Risk Level:: Medical - moderate - high VTE Device Contraindication: Treatment Not Indicated VTE Drug Contraindication: N/A - Med Ordered
--- NOTE | 2025-03-26 18:32 | P.ACPN_ITS ---
Advanced Care Planning Note Advanced Care Planning Note Time spent (in minutes): 35 Narrative: 79F PMH DM, HTN, pafib, copd, alzheimers dementia, hld, cholelithiasis with gallstone pancreatitis treated conservatively 12/2024, [facility] resident sent in for agitation, elevated bp, hypoglycemia and possible failure to thrive in addition CT abdomen evidence of possible acute cholecystitis so started on IV antibiotics, patient oral intake is very poor and failure to thrive: Discussed with the family in detail, patient's daughter miss santos: Plan is To stop any active treatments and more focus is towards quality of life and let the nature take its course, subsequently hospice evaluation added, we will change patient to comfort measures. Problems Discussed (1) Acute cholecystitis:
[2025-03-26 19:31] VITALS: BP 130/59; PULSE 69; RESP 15; TEMP 35.6; O2SAT 96
[2025-03-26] MEDS: Parenteral Nutrition 1,200 ML 50 ML IV (21:09)
[2025-03-26] MEDS: 0.9 % Sodium Chloride Flush 3 ML SYRINGE IVFLUSH (21:30)
[2025-03-27 08:00] VITALS: RESP 16
--- NOTE | 2025-03-27 10:33 | MHC.CLN ---
F/U PT TO TRANSITION TO [facility] [employer] [employer] PLAN TO D/C PPN-COMMUNICATED WITH PHARMACY PATIENT CONTINUES WITH POOR PO INTAKE DIET CONTINUES DIABETIC 1800 KCALS-CAN LIBERALIZE IF NEEDED SKIN WITH STAGE II PRESSURE INJURY TO COCCYX FOLLOWING WITH TEAM AND WILL PROVIDE SUPPORT NEEDED
--- NOTE | 2025-03-27 10:40 | MHC.CM.PN ---
Per MD, patient medically cleared for dc back to SNF on hospice, as discussed w/ daughter/HCP. CM verified daughter is still in agreement w/ plan. [facility] aware and will arrange hospice services. BLS transport scheduled for 2pm. RN and daughter aware. IMM delivered.
--- NOTE | 2025-03-27 11:14 | P.PNGS_ITS ---
Subjective Subjective Date of Service: 03/27/25 Interval history: Mental status the same Does not really offer much with regards to history She has a verbal output but has dementia Physical Exam 2 Vital Signs: Vital Signs: Last Vital Signs Temp 96.0 F L 03/26/25 19:31 Pulse 69 03/26/25 19:31 Resp 15 03/26/25 19:31 BP 130/59 L 03/26/25 19:31 Pulse Ox 96 03/26/25 19:31 O2 Del Method Room Air 03/26/25 19:31 O2 Flow Rate 2 03/20/25 03:02 BMI result Body Mass Index 33.0 Const: General: comfortable and no acute distress Resp: Effort & Inspection: normal respiratory effort Cardio: Rate: regular rate GI: Other: Mild diffuse tenderness Palpation (GI): Soft to palpation, not firm, no guarding and not rigid Objective Data Active Medications Acetaminophen (Acetaminophen 325 Mg Tablet) 650 mg PO Q6H PRN PRN Reason: Pain, Mild 1-3,fever,headache Last Admin: 03/26/25 09:00 Dose: 650 mg Documented By: ADENIKE Baclofen (Baclofen 10 Mg Tablet) 5 mg PO Q8H PRN PRN Reason: Muscle Spasm Last Admin: 03/23/25 02:13 Dose: 5 mg Documented By: JHOANA Bisacodyl (Bisacodyl 10 Mg Supp.Rect) 10 mg [place] DAILY PRN PRN Reason: Constipation Calcium Carbonate (Calcium Carbonate 750 Mg Tab.Chew) 750 mg PO Q4H PRN PRN Reason: Heartburn Dextrose (Dextrose 50 % 25 Gm/50 Ml Syringe) 25 gm IVPUSH Q15M PRN; Protocol PRN Reason: per Hypoglycemia Standing Ord. Nutrition (Parenteral) (Parenteral Nutrition) 1,200 mls @ 50 mls/hr IV .Q24H [facility]; Protocol Stop: 03/27/25 20:59 Last Admin: 03/26/25 21:09 Dose: 50 mls/hr Documented By: ANTONIA Magnesium Hydroxide (Milk Of Magnesia 30 Ml Oral.Susp) 30 ml PO DAILY PRN PRN Reason: Constipation Naloxone HCl (Naloxone Hcl Nasal 4 Mg [place]) 4 mg NOSTRILALT Q3M PRN PRN Reason: Opioid Overdose Olanzapine (Olanzapine 5 Mg Tablet) 5 mg PO BEDTIME COUNTS [facility]CLUDE 234 BEDS AT [facility] Last Admin: 03/26/25 21:08 Dose: 5 mg Documented By: ANTONIA Omeprazole (Omeprazole 20 Mg Capsule.Dr) 20 mg PO DAILY@0630 COUNTS [facility]CLUDE 234 BEDS AT [facility] Last Admin: 03/27/25 05:26 Dose: 20 mg Documented By: ANTONIA Ondansetron HCl (Ondansetron Hcl 4 Mg/2 Ml Vial) 4 mg IVPUSH Q6H PRN PRN Reason: Nausea and Vomiting Last Admin: 03/26/25 09:04 Dose: 4 mg Documented By: ADENIKE Oxycodone HCl (Oxycodone Hcl Immed Release 5 Mg Tablet) 5 mg PO DAILY@1700 COUNTS INCLUDE 234 BEDS AT [facility] Last Admin: 03/26/25 16:15 Dose: 5 mg Documented By: BETSEY Oxycodone HCl (Oxycodone Hcl Immed Release 5 Mg Tablet) 5 mg PO Q8H PRN PRN Reason: Pain, Severe (Pain Scale 7-10) Last Admin: 03/26/25 13:23 Dose: 5 mg Documented By: KHAI Oxycodone HCl (Oxycodone Hcl Er 10 Mg Tab.Er.12h) 20 mg PO BID@0900,2100 COUNTS INCLUDE 234 BEDS AT [facility] Last Admin: 03/26/25 21:08 Dose: 20 mg Documented By: ANTONIA Pharmacy Consult (Consult Rx Parenteral Nutrition Ordering) 1 each MISCELLANE DAILY PRN PRN Reason: Consult order Polyethylene Glycol (Polyethylene Glycol 3350 17 Gm Powd.Pack) 17 gm PO DAILY COUNTS INCLUDE 234 BEDS AT [facility] Last Admin: 03/24/25 08:13 Dose: Not Given Documented By: ELBA Non-Admin Reason: hold per md Sodium Biphosphate/Sodium Phosphate (Sodium Phosphate,[place]-Dibasic 133 Ml Enema) 118 ml [place] DAILY PRN PRN Reason: Constipation Sodium Chloride (0.9 % Sodium Chloride Flush 3 Ml Syringe) 3 ml IVFLUSH QSHIFT COUNTS INCLUDE 234 BEDS AT [facility] Last Admin: 03/26/25 21:30 Dose: 3 ml Documented By: ANTONIA Labs 03/26/25 06:06 03/27/25 05:33 Labs: Laboratory Results - last 24 hr 03/26/25 03/26/25 03/27/25 11:29 16:14 05:33 Anion Gap 13 Estim Creat Clear Calc 56.3 Estimated GFR > 60 POC Glucose 227 H 211 H Random Glucose 227 H Calcium 9.0 Phosphorus 3.5 Magnesium 2.1 Triglycerides 64 Procedures Date of Service Date of Service: 03/27/25 Progress Note: A&P Assessment and plan (1) Acute cholecystitis: Status: Acute Assessment and Plan: She has had no fever WBC 11 Abdomen has remained soft and benign Okay to have diet as tolerated No surgical intervention planned Patient with multiple comorbid conditions Antibiotic treatment Time Spent With Patient Time: Total time managing care of this patient today ____ minutes. Quality Stroke Does the patient have a stroke diagnosis?: No VTE Prior VTE?: No VTE Risk Level:: Medical - moderate - high VTE Device Contraindication: Treatment Not Indicated VTE Drug Contraindication: N/A - Med Ordered
[2025-03-27] MEDS: oxyCODONE HCl ER 10 MG TAB.ER.12H 20 MG PO (11:25)
--- NOTE | 2025-03-27 12:04 | PM.DS ---
DS: Providers Provider Date of Service: 03/27/25 Date of admission: 03/23/25 03:45 Date of discharge: 03/27/25 Primary care physician: Mike Bello MD Consults: 03/21/25 08:27 Consult to General Surgery Routine Consulting Provider: [facility] [place] [facility] [place] [facility] Reason for consultation: ? cholecytsitis Has provider been notified: No 03/23/25 10:40 Consult to Wound Care Routine Reason for consultation: Coocyx open area on Admit Attending physician on discharge: Horace Miranda Discharging clinician: Horace Miranda DS: Diagnosis Discharge Diagnosis (1) Acute cholecystitis: Status: Acute DS: Summary Hospital Course Hospital Course: HPI:79F PMH DM, HTN, pafib, copd, alzheimers dementia, hld, longterm resident sent in for agitaiton, elevated bp, hypoglycemia. Patient has chronic pain due to osteoarthritis. Appeared to be more agitated than usual. Blood pressures were checked and were elevated to over 200. Also noted to have glucose of 57 so sent to ED. in ED blood pressure continued to be elevated to over 200, time of admission decreased to 163/68. Was given octreotide and started on D5 half NS. Denies abdominal pain, has no appetite. hospital course:79F PMH DM, HTN, pafib, copd, alzheimers dementia, hld, cholelithiasis with gallstone pancreatitis treated conservatively 12/2024, longterm resident sent in for agitation, elevated bp, hypoglycemiaand possible failure to thrive in addition CT abdomen evidence of possible acute cholecystitis so started on IV antibiotics,added ppn , patient oral intake is very poor and due to failure to thrive as well did not improve much with above management-Discussed with the family in detail, patient's daughter miss santos:decided for more focus is towards quality of life and let the nature take its course, subsequently hospice evaluation / comfort measures. Time Attestation Total time managing care of this patient today: 45 mintues. Discharge Coordination Time (in mins): 45 min Quality: Safe Use of Opioids Does Pt have an Active Cancer Diagnosis on the Problem List?: No Quality: Stroke Does the patient have a stroke diagnosis?: No Physical Exam Exam: Exam: comfortable ,poor insight, no acute distress. abdomen :soft and nontender to deep palpation,has epigastric disconfort, nondistended chest: cta , no rales or wheezin cvs:rrr ,s1s2 heard Vital Signs: Vital Signs: Last Vital Signs Temp 96.0 F L 03/26/25 19:31 Pulse 69 03/26/25 19:31 Resp 16 03/27/25 08:00 BP 130/59 L 03/26/25 19:31 Pulse Ox 96 03/26/25 19:31 O2 Del Method Room Air 03/26/25 19:31 O2 Flow Rate 2 03/20/25 03:02 BMI result Body Mass Index 33.0 DS: Data Data Completed and Pending Labs on day of discharge: Laboratory Results - last 24 hr 03/26/25 03/27/25 16:14 05:33 Sodium 140 Potassium 3.7 Chloride 105 Carbon Dioxide 26 Anion Gap 13 BUN 13 Creatinine 0.79 Estim Creat Clear Calc 56.3 Estimated GFR > 60 POC Glucose 211 H Random Glucose 227 H Calcium 9.0 Phosphorus 3.5 Magnesium 2.1 Triglycerides 64 Imaging Chest x-ray: Radiologist's impression: ITS Impressions Abdomen/Pelvis CT 03/19/25 21:17 IMPRESSION: Concerning acute cholecystitis in the correct clinical settings alternative diagnosis of hepatitis/hepatocellular disease versus prolonged fasting. Probable medical renal disease. Atherosclerosis disease and coronary artery disease. Diverticular disease, sigmoid colon. Probable radiopaque tablets versus foreign bodies in the cecum and rectum. Osteopenia versus osteoporosis. Multilevel thoracolumbar spondylosis. Fleischner guidelines were followed. Head CT 03/23/25 09:32 IMPRESSION: 1. No acute intracranial abnormality. 2. Age-related cerebral and cerebellar volume loss, and moderate changes of small vessel ischemia. Discharge Plan Discharge Anticipated Discharge Date/Time: 03/27/25 11:52 Patient Disposition: Xfer SNF Discharge Diagnosis: fft,acute choleycytitis Referrals: Mike Bello MD [Primary Care Provider, Internal Medicine] - 1 Week Discharge Medications: New morphine concentrate 100 mg/5 mL (20 mg/mL) solution 5 mg PO Q3H PRN (Reason: pain/comfort) 15 Days Qty: 30 0RF Rx Instructions: Partial Fill upon patient request. lorazepam [Lorazepam Intensol] 2 mg/mL concentrate 0.5 mg PO Q4H PRN (Reason: anxiety/restlessness) Qty: 30 0RF Continued quetiapine 25 mg tablet 25 mg PO BEDTIME Discontinued acetaminophen 325 mg Tablet 650 mg PO Q4H PRN (Reason: Fever Or Pain) acetaminophen 650 mg Suppository 650 mg AR Q4H PRN (Reason: pain or fever) atorvastatin 20 mg tablet 20 mg PO BEDTIME polyethylene glycol 3350 [Miralax] 17 gram Powder In Packet 17 g PO DAILY metoprolol succinate 100 mg tablet extended release 24 hr 100 mg PO DAILY melatonin 3 mg Tablet 6 mg PO BEDTIME magnesium hydroxide [Milk of Magnesia] 400 mg/5 mL Suspension 30 ml PO DAILY PRN (Reason: Constipation) bisacodyl 10 mg Suppository 10 mg AR DAILY PRN (Reason: Constipation) Fleet Enema 19-7 gram/118 mL Enema 118 ml AR DAILY PRN (Reason: Constipation) omeprazole 20 mg capsule,delayed release(DR/EC) 20 mg PO DAILY montelukast 10 mg Tablet 10 mg PO BEDTIME furosemide 20 mg Tablet 20 mg PO DAILY clotrimazole 1 % Cream 1 appl TOPICAL DAILY Rx Instructions: Apply to under bilateral breast loratadine 10 mg tablet 10 mg PO DAILY glipizide 5 mg tablet 5 mg PO BIDAC oxycodone 5 mg tablet 5 mg PO DAILY@1700 Eliquis 5 mg tablet 5 mg PO BID Jardiance 10 mg tablet 10 mg PO DAILY oxycodone 10 mg Tablet,Oral Only,Ext.Rel.12 Hr 20 mg PO BID@0900,2100 Rx Instructions: q12h multivitamin Tablet 1 tab PO DAILY ipratropium-albuterol 0.5 mg-3 mg(2.5 mg base)/3 mL solution for nebulization 3 ml INHALATION Q4H PRN (Reason: Shortness Of Breath Or Wheezing) oxycodone 5 mg tablet 5 mg PO Q8H PRN (Reason: Pain) cyclobenzaprine 5 mg tablet 5 mg PO BID duloxetine 30 mg capsule,delayed release(DR/EC) 30 mg PO DAILY naloxone [Narcan] 4 mg/actuation Quinlan,Non-Aerosol 4 mg INTRANASAL Q3M PRN (Reason: Opioid Overdose) Rx Instructions: spray 1 dose into ONE nostril; alternate nostrils w each dose until help arrives baclofen 5 mg Tablet 5 mg PO Q8H PRN (Reason: Muscle Spasm) Discharge Orders: Discharge Order (Routine); Ordered 03/27/25 Ordered By: Horace Miranda Diet: Advance to usual diet Activity on Discharge: As tolerated Stand Alone Forms: Patient Portal Discharge page Print Language: Mongolian Care Plan Goals: ftt, family decided for hospice/comfort focus care. added comfort meds . Health Concerns: as above. Plan of Treatment: as above. Assessment: as above.
[2025-03-27] MEDS: oxyCODONE HCl Immed Release 5 MG TABLET PO (15:04)
== END 2025-03-27 15:43 | disposition skilled nursing facility (03) | DRG 638 ==
LOC: HO.ED 16:01 → HO.EDOVER 18:41 → HO.S3 21:01
PROVIDERS: Emergency Medicine; Admitting Provider Internal Medicine; Emergency Provider Student in an Organized Health Care Education/Training Program; PCP Family Medicine; Visit Provider Internal Medicine
DX: E11.649 Type 2 diabetes mellitus with hypoglycemia without coma (principal); K80.00 Calculus of gallbladder with acute cholecystitis without obstruction; R62.7 Adult failure to thrive; Z66 Do not resuscitate; G89.29 Other chronic pain; I48.0 Paroxysmal atrial fibrillation; G30.9 Alzheimer's disease, unspecified; F02.80 Dementia in other diseases classified elsewhere, unspecified severity, without behavioral disturbance, psychotic disturbance, mood disturbance, and anxiety; Z68.33 Body mass index [BMI] 33.0-33.9, adult; Z20.822 Contact with and (suspected) exposure to COVID-19; Z79.899 Other long term (current) drug therapy
CPT/HCPCS: 36415; 70450; 71045; 74176; 80048; 80053; 80076; 81001; 82140; 82803; 82947; 83036; 83735; 83880; 84100; 84478; 85025; 85027; 87502; 87635; 93005; 93306; 99285; J0696; J1630; J1836; J2354; J2359; J2405; Q9957

== ENCOUNTER → 2025-03-19 09:47 | Outpatient (BNV) | payer OTHER, SELFPAY | PROVIDERS: Emergency Provider Student in an Organized Health Care Education/Training Program; PCP Family Medicine; Visit Provider Internal Medicine | DX: K81.0 Acute cholecystitis (principal) | CPT/HCPCS: 99499 ==

== ENCOUNTER → 2025-03-19 10:18 | Outpatient (BNV) | payer OTHER, SELFPAY | PROVIDERS: Admitting Provider Internal Medicine; Emergency Provider Student in an Organized Health Care Education/Training Program; PCP Family Medicine; Visit Provider Internal Medicine | DX: I45.10 Unspecified right bundle-branch block (principal) | CPT/HCPCS: 93010 ==

== ENCOUNTER → 2025-03-19 17:14 | Outpatient (BNV) | payer OTHER, SELFPAY | PROVIDERS: Admitting Provider Internal Medicine; Emergency Provider Student in an Organized Health Care Education/Training Program; PCP Family Medicine; Visit Provider Specialist | DX: R06.02 Shortness of breath (principal) | CPT/HCPCS: 71045; 74176 ==

== ENCOUNTER 2025-03-20 08:48 | Outpatient (BNV) | payer OTHER, SELFPAY | END 2025-03-20 17:00 | PROVIDERS: Admitting Provider Internal Medicine; Emergency Provider Student in an Organized Health Care Education/Training Program; PCP Family Medicine; Visit Provider Internal Medicine | DX: I35.0 Nonrheumatic aortic (valve) stenosis (principal) | CPT/HCPCS: 93306 ==

== ENCOUNTER → 2025-03-20 08:48 | Outpatient (BNV) | payer OTHER, SELFPAY | PROVIDERS: Admitting Provider Internal Medicine; Emergency Provider Student in an Organized Health Care Education/Training Program; PCP Family Medicine; Visit Provider Physician Assistant Surgical | DX: K81.0 Acute cholecystitis (principal) | CPT/HCPCS: 99222 ==

== ENCOUNTER 2025-03-23 03:45 | Outpatient (BNV) | payer OTHER, SELFPAY | END 2025-03-23 09:32 | PROVIDERS: Admitting Provider Internal Medicine; Emergency Provider Student in an Organized Health Care Education/Training Program; PCP Family Medicine; Visit Provider Radiology Diagnostic Radiology | DX: G31.9 Degenerative disease of nervous system, unspecified (principal); I67.82 Cerebral ischemia | CPT/HCPCS: 70450 ==